=== PATIENT | male | born 1940 | race Caucasian/White ===

== ENCOUNTER 2016-11-18 21:42 | Inpatient (IN) ==
[2016-11-18] MEDS ORDERED: 0.9 % Sodium Chloride 1,000 ML IVC ONE (22:11)
[2016-11-18 22:43] LABS: Eosinophils % 4.5 %; Hematocrit 19.9 % (37.5-50.1); Immature Granulocytes % 1.1 % (0-4); Lymphocytes # 0.4 K/mcL (0.6-4.6); Lymphocytes % 39.8 %; Mean Corpuscular HGB Conc 32.7 g/dL (31.6-35.5); Mean Corpuscular Hemoglobin 31.7 pg (28.0-33.3); Mean Corpuscular Volume 97.1 fL (83.0-100.0); Mean Platelet Volume 11.4 fL (9.4-12.4); Monocytes # 0.2 K/mcL (0.0-1.3); Monocytes % 18.2 %; Neutrophils # 0.3 K/mcL (1.6-8.9); Nucleated Red Blood Cells 4.5 /100 WBC (0); Red Blood Count 2.05 M/mcL (4.19-5.50); Red Cell Distribution Width 20.7 % (11.5-14.5); Segmented Neutrophils % 36.4 %
[2016-11-18 22:55] LABS: INR 1.3; Prothrombin Time 14.4 Seconds (9.4-12.1)
[2016-11-18 22:56] LABS: Calcium 7.8 mg/dL (8.6-10.8)
[2016-11-18 22:57] LABS: Activated Partial Thrombo Time 25.4 Seconds (26.0-36.0)
[2016-11-18 22:59] LABS: Hemoglobin 6.5 g/dL (12.9-16.9); Platelet Count 43 K/mcL (140-400)
[2016-11-18 23:04] LABS: Hypochromasia Present (Not Present)
[2016-11-18 23:05] LABS: Anisocytosis 3+ (Not Present)
[2016-11-18 23:06] LABS: Platelet Estimate Marked Decrease (Normal); Rouleaux Present (Not Present)
[2016-11-18 23:19] LABS: Thyroid Stimulating Hormone 2.312 mcIU/mL (0.350-4.840)
--- NOTE | 2016-11-18 23:47 | Emergency Department Note ---
Disposition Clinical Impression: Anemia, Neutropenia, Leukocytopenia, Elevated troponin, Chronic atrial fibrillation, Pneumonia, Anxiety Disposition: Admitted As Inpatient Condition: Critical Time of Disposition: 02:05 General Adult HPI - General Chief complaint: ED Arrhythmia/Palpitations Stated complaint: anxiety/tachy Time Seen by Provider: 11/18/16 21:47 Source: patient, family, EMS Limitations: no limitations Nursing Notes Reviewed: Yes Vital Signs Reviewed: Yes - History of Present Illness HPI Narrative: Mr. Craig, a 76yo male, presents from home via EMS with concerns of anxiety and tachycardia. Per EMS, patient's heart rate was slightly above 200 at their arrival. Now in the low 100s. Patient states he has been anxious and is slept 2 hours in the past 48. He was seen at this department last Wednesday prescribed a short course of Xanax which did help. He did follow up appropriately with his oncologist who also continue his prescription Xanax however pharmacy would not fill it until as leaving him a short gap of coverage as such, his symptoms were uncontrolled for a day or so he presents for evaluation. He has a history of multiple myeloma diagnosed 5.5 years ago. He is currently undergoing second round of chemotherapy. ROS: Positive: Anxiety, dyspnea Negative: fever, chills, nausea, vomiting, chest pains or palpitations, diaphoresis. Pain Scale: 0 - Related Data Home Medications Medication Instructions Recorded Confirmed Multivit-Min/FA/Lycopen/Lutein 1 each PO DAILY 01/04/15 11/19/16 [Centrum Silver Tablet] Phytosterol Combination No.1 1,000 mg PO BID 02/01/15 11/03/16 [Cholest Care] amLODIPine [Norvasc] 5 mg PO DAILY 07/16/16 11/19/16 Aloe Vera 1 cap PO DAILY 09/11/16 11/19/16 Lactobacillus Combination No.8 1 cap PO DAILY 09/11/16 11/03/16 [Adult Probiotic] Saw [place] Xtr/Zinc Picolin [Saw 1 each PO DAILY 09/11/16 11/03/16 [place] Capsule] Previous Rx's Medication Instructions Recorded Aspirin [Adult Low Dose Aspirin EC] 81 mg PO DAILY #30 tablet. 02/01/15 Acyclovir [Zovirax] 1 tab PO BID #180 tablet 03/28/17 Omeprazole [PriLOSEC] 20 mg PO DAILY #90 cap 08/18/16 Lactulose 10 ml PO BID PRN #300 mls 09/03/16 Prochlorperazine Maleate 10 mg PO Q6HR PRN #30 tablet 10/21/16 [Compazine] Pomalidomide [Pomalyst] 2 mg PO DAILY #21 capsule 10/27/16 ALPRAZolam [Xanax 0.5 MG Tablet] 0.5 mg PO BID PRN #40 tablet 11/17/16 FentaNYL PATCH [Duragesic] 25 mcg TD Q72H #10 patch.td72 11/17/16 Furosemide [Lasix] 20 mg PO DAILY PRN #30 tablet 11/17/16 levoFLOXacin [Levaquin] 500 mg PO DAILY #5 tablet 11/17/16 Allergies Allergy/AdvReac Type Severity Reaction Status Date / Time clarithromycin [From Biaxin] AdvReac Nausea Verified 09/28/16 15:36 Penicillins [PCN] AdvReac Fainting Verified 09/28/16 15:36 Sulfa (Sulfonamide AdvReac Hives Verified 09/28/16 15:36 Antibiotics) All systems ED: reviewed and negative except as stated. Past Medical History - Past Medical History Medical history: Reports: cancer, GERD, other Surgical history: Reports: appendectomy, other Psychiatric history: Reports: no psych history - Social History Smoking Status: Unknown if ever smoked Smokeless Tobacco Status: No Alcohol use: Reports: none Drug use: Reports: none Physical Exam Vital Signs Reviewed General: Patient is alert, oriented, and in no acute distress. Somewhat cachectic in appearance. HEENT: No facial asymmetry. Head is normocephalic and atraumatic. PERRLA. Trachea midline. Cardiovascular: Heart tachycardic rate rate and regular rhythm without clicks, rubs, gallops, or murmurs. No JVD. PMI nondisplaced. Trace pedal edema bilaterally. Bilateral radial pulses equal and 2/4. Respiratory: Symmetric chest rise with good respiratory effort. Bilateral breath sounds are clear without wheezing, crackles, or rhonchi. Abdomen: Bowel sounds present normoactive -4 quadrants. Abdomen is soft, nondistended, and nontender. No organomegaly noted. Musculoskeletal: Spontaneously moving all extremity. Psych: Patient's affect is appropriate for situation. - General Limitations: no limitations General appearance: alert, in no apparent distress Course Course Narrative: Initial concerns or cardiac given his tachycardia to rule out arrhythmia or other cause of tachycardia. We will also attempt to control his anxiety while in the department. Workup shows neutropenic leukopenia. Patient is afebrile. Each precautions placed in ER; masks given to family members at bedside. EKG shows A. fib with RVR; rate of 108. Patient has elevated troponin of 0.04. He denies chest pain. Provided aspirin. He does have elevated creatinine of 1.88 which is his baseline. I believe his elevated troponin is secondary to demand ischemia given his previously reported heart rate greater than 200. He is in the 70s heart rate at this time. He is now chest pain throughout his stay. His x-ray concerning for possible early pneumonia. Given patient's neutropenic opinion, will begin empiric treatment for hospital-acquired pneumonia. Does have an allergy to penicillin. He nor his are in sure if he has an allergic reaction to cephalosporin. Sure if he is ever taken cephalosporins previously. Patient is anemic with Hemoccult 6.5. He is scheduled for blood transfusion tomorrow. We will go and type and cross, consent for transfusion, and begin tonight. Discussed the above findings with the patient and multiple family members bedside. They agree for admission. Discussed the patient with the admitting hospitalist who agrees to accept the patient.who Vital Signs Temperature 98.2 F 11/18/16 21:46 Pulse Rate 107 11/18/16 21:46 Respiratory Rate 18 11/18/16 21:46 Blood Pressure 140/106 11/18/16 21:46 O2 Sat by Pulse Oximetry 97 11/18/16 21:46 Temperature 98.2 F 11/18/16 21:46 Pulse Rate 107 11/18/16 21:46 Respiratory Rate 18 11/19/16 01:18 Blood Pressure 135/96 11/19/16 01:18 O2 Sat by Pulse Oximetry 97 11/18/16 21:46 Oxygen Delivery Oxygen Delivery Nasal Cannula Medical Decision Making - Medical Records Medical records reviewed: Yes I reviewed the patient's medical records. - Lab Data Lab results reviewed: Yes I reviewed the patient's lab results. Result diagrams: 11/18/16 22:35 11/18/16 22:35 Lab Results 11/18/16 11/18/1617 Range/Units 22:35 22:35 22:35 WBC 0.9 L* (4.3-11.1) K/mcL RBC 2.05 L (4.19-5.50) M/mcL Hgb 6.5 L (12.9-16.9) g/dL Hct 19.9 L (37.5-50.1) % MCV 97.1 (83.0-100.0) fL MCH 31.7 (28.0-33.3) pg MCHC 32.7 (31.6-35.5) g/dL RDW 20.7 H (11.5-14.5) % Plt Count 43 L (140-400) K/mcL MPV 11.4 (9.4-12.4) fL Immature Gran % 1.1 (0-4) % Seg Neutrophils % 36.4 % Lymphocytes % 39.8 % Monocytes % 18.2 % Eosinophils % 4.5 % Basophils % 0.0 % Neutrophils # 0.3 L (1.6-8.9) K/mcL Lymphocytes # 0.4 L (0.6-4.6) K/mcL Monocytes # 0.2 (0.0-1.3) K/mcL Eosinophils # 0.0 (0.0-0.6) K/mcL Basophils # 0.0 (0.0-0.2) K/mcL Nucleated RBCs/100 WBC 4.5 H (0) /100 WBC Platelet Estimate Marked Decrease L (Normal) Hypochromasia Present A (Not Present) Anisocytosis 3+ A (Not Present) Rouleaux Present A (Not Present) PT 14.4 H (9.4-12.1) Seconds INR 1.3 APTT 25.4 L (26.0-36.0) Seconds D-Dimer 1168 H (0-500) ng/mLFEU Sodium 137 (136-145) mEq/L Potassium 4.0 (3.5-4.5) mEq/L Chloride 109 (98-109) mEq/L Carbon Dioxide 23 (19-29) mEq/L BUN 26 (8-26) mg/dL Creatinine 1.88 H D (0.72-1.25) mg/dL Est GFR ( Amer) 43 L (> 60) Est GFR (Non-Af Amer) 35 L (> 60) BUN/Creatinine Ratio 14 (6-26) Glucose 106 H (70-99) mg/dL Calculated Osmolality 289 (280-300) Calcium 7.8 L (8.6-10.8) mg/dL Troponin I (0-0.03) ng/mL TSH 2.312 (0.350-4.840) mcIU/mL 11/18/16 Range/Units 22:35 WBC (4.3-11.1) K/mcL RBC (4.19-5.50) M/mcL Hgb (12.9-16.9) g/dL Hct (37.5-50.1) % MCV (83.0-100.0) fL MCH (28.0-33.3) pg MCHC (31.6-35.5) g/dL RDW (11.5-14.5) % Plt Count (140-400) K/mcL MPV (9.4-12.4) fL Immature Gran % (0-4) % Seg Neutrophils % % Lymphocytes % % Monocytes % % Eosinophils % % Basophils % % Neutrophils # (1.6-8.9) K/mcL Lymphocytes # (0.6-4.6) K/mcL Monocytes # (0.0-1.3) K/mcL Eosinophils # (0.0-0.6) K/mcL Basophils # (0.0-0.2) K/mcL Nucleated RBCs/100 WBC (0) /100 WBC Platelet Estimate (Normal) Hypochromasia (Not Present) Anisocytosis (Not Present) Rouleaux (Not Present) PT (9.4-12.1) Seconds INR APTT (26.0-36.0) Seconds D-Dimer (0-500) ng/mLFEU Sodium (136-145) mEq/L Potassium (3.5-4.5) mEq/L Chloride (98-109) mEq/L Carbon Dioxide (19-29) mEq/L BUN (8-26) mg/dL Creatinine (0.72-1.25) mg/dL Est GFR ( Amer) (> 60) Est GFR (Non-Af Amer) (> 60) BUN/Creatinine Ratio (6-26) Glucose (70-99) mg/dL Calculated Osmolality (280-300) Calcium (8.6-10.8) mg/dL Troponin I 0.04 H* (0-0.03) ng/mL TSH (0.350-4.840) mcIU/mL - Radiology Data Radiology results reviewed: Yes I reviewed the patient's radiology results. Chest X-Ray 11/18/16 22:11 IMPRESSION: Minimal right basilar atelectasis or, less likely, pneumonia. D/ / Fletcher Conn MD / Fletcher Conn MD Interpreting Provider: Fletcher Conn MD - EKG Data EKG #1 EKG attestation: Yes I reviewed and interpreted this EKG. EKG results narrative: EKG dated 18 November 2016 interpreted as A. Fib with RVR; rate of 108. Rare PVCs. QRS 93, QT/QTC 300/2. Normal axis. Nonspecific ST-T changes. No previous EKG for comparison. Attestation Statement - Attestation Attestation: I, Brody Owens, examined this patient and my medical decision-making was reviewed with the LYE PEEL OPERATOR/PA/Advanced Practice Nurse/Resident Physician. I agree with the documented findings, disposition and treatment plan as described except to the extent set forth below. 76-year-old male brought to the emergency department for concerns of anxiety and tachycardia. EMS reported patient's heart rate at 210 however after observation in the EMS struck his heart rate improved significantly and gradually down to 140. Upon initial evaluation emergency Department his heart rate is now 110 and he continues to improve as he is able to relax. Patient had a similar episode of anxiety within the past few weeks, he just had a CTA of his chest within the past 4 days for similar symptoms as negative for PE. Patient denies fever, chills, nausea, vomiting. He states he became very anxious when his family was present today with everybody trying to talk over each other. Laboratory evaluation the patient is neutropenic. Chest x-ray shows a possible pneumonia. He will be treated for this with broad-spectrum antibiotics. Initial troponin is mildly elevated. Patient is comfortable with the plan to admit to the hospital for further care and evaluation.
[2016-11-18] MEDS ORDERED: Aspirin 81 MG TAB.CHEW PO ONE (23:50)
[2016-11-18] MEDS ORDERED: ALPRAZolam 0.5 MG TABLET PO ONE (23:52)
[2016-11-19] MEDS ORDERED: Levofloxacin 750 MG/150 ML 750 MG/150 ML BAG IVPB ONE (00:24)
[2016-11-19] MEDS ORDERED: Vancomycin 1,000 MG in D5% in Water 250 ML IVPB ONE (00:24)
[2016-11-19] MEDS ORDERED: Cefepime HCl 2,000 MG in D5% in Water (Mini-Bag+) 100 ML IVPB SCH (01:00)
--- NOTE | 2016-11-19 02:46 | Internal Med History&Physical ---
Date of Encounter: 11/19/16 Time of Encounter: 02:46 Assessment and Plan (1) Tachycardia Current visit: Yes Status: Acute EKG showed sinus tachycardia. TSH is normal. Suspect is related to anxiety. However, in view of elevated d-dimer and troponin, will need to exclude Pulmonary embolism. Will request VQ scan (Creatinine is elevated). Pt is on IV fluids (2) Pancytopenia Current visit: Yes Status: Chronic Likely due to multiple myeloma / therapy. Will consult Oncologist for further advice. (3) Elevated troponin Current visit: Yes Status: Acute Likely due to tachycardia / demand ischemia. Will need to exclude ACS / Pulmonary embolism. Trend troponins. Will request echocardiogram. Consider cardiology consultation if troponin trends up (4) Elevated d-dimer Current visit: Yes Status: Acute will need to exclude Pulmonary embolism. Will request VQ scan (Creatinine is elevated). If negative, consider venous doppler (5) Neutropenia Current visit: Yes Status: Acute Neutropenic precautions. Oncology / Hematology consult Qualifiers: Neutropenia type: unspecified Qualified Code(s): D70.9 - Neutropenia, unspecified (6) Anxiety Current visit: Yes Status: Chronic continue with xanax (7) Acute kidney injury Current visit: Yes Status: Acute Suspect is related to multiple myeloma. Treat with IV fluids (8) Multiple myeloma Current visit: Yes Status: Chronic Oncology consult Qualifiers: Multiple myeloma remission status: not in remission Qualified Code(s): C90.00 - Multiple myeloma not having achieved remission (9) DVT prophylaxis Current visit: Yes Status: Acute SCDs Internal Medicine - H&P: HPI Chief complaint: fast heart rate Admitted From: Emergency Dept Plans for Post Hospital Care: Home History of present illness: Mr. Craig is a 76 year old male With h/o multiple myeloma and anxiety. His heart rate was apparently was high on his home monitor (about 150). ER note indicate that EMS reported patient's heart rate at 210 however after observation in the EMS struck his heart rate improved significantly and gradually down to 140. Upon initial evaluation emergency Department his heart rate is now 110 and he continues to improve as he is able to relax.. He reports that he is anxious and been using Xanax. He is worried to go sleep and concerned that he may not wake up in the morning. He denies chest pain, shortness of breath, palpitations. He reports cough with whitish and light brown sputum, for few weeks. No hemoptysis. He denies fever, chills, nausea, vomiting, abdominal pain, dysuria, hematuria, change in bowel habits. He was evaluated in the emergency department ER note reports A Fib, but on review of the EKG, it seems to be sinus tachycardia. He was noted to be neutropenic. CXR reported Minimal right basilar atelectasis or, less likely, pneumonia he was given triple antibiotics with suspicion for pneumonia. He is admitted to the hospitalist service for further management. Past Med Surg Social Fam HX - Past Medical History Medical history: cancer, GERD, other Psychiatric history: no psych history - Past Surgical History Surgical History: appendectomy, other - Social History Smoking Status: Unknown if ever smoked Smokeless Tobacco Status: No Alcohol use: none Drug use: none - Family History Grandfather Adopted: No Family Member Ethnicity: Non- Living Status: Hx Family Cancer: Yes Father Family Member Ethnicity: Non- Living Status: Age at : 88 Cause of : Natural Causes Hx Family Endocrine Disorder: Yes (diabetes) Mother Age at : 85 Cause of : Natural Causes Hx Family Endocrine Disorder: Yes (Diabetes) Internal Medicine - H&P: Meds Multivit-Min/FA/Lycopen/Lutein [Centrum Silver Tablet] 1 tab PO DAILY 01/04/15 [ History] Aspirin [Adult Low Dose Aspirin EC] 81 mg PO DAILY #30 tablet. 02/01/15 [Rx] amLODIPine [Norvasc] 5 mg PO DAILY 07/16/16 [History] Acyclovir [Zovirax] 1 tab PO BID #180 tablet 08/18/16 [Rx] Omeprazole [PriLOSEC] 20 mg PO DAILY #90 cap 08/18/16 [Rx] Lactulose 10 ml PO BID PRN #300 mls 09/03/16 [Rx] Aloe Vera 25 mg PO DAILY 09/11/16 [History] Saw [place] Xtr/Zinc Picolin [Saw [place] Capsule] 1 cap PO DAILY 09/11/16 [ History] Prochlorperazine Maleate [Compazine] 10 mg PO Q6HR PRN #30 tablet 10/21/16 [Rx] Pomalidomide [Pomalyst] 2 mg PO DAILY #21 capsule 10/27/16 [Rx] ALPRAZolam [Xanax 0.5 MG Tablet] 0.5 mg PO BID PRN #40 tablet 11/17/16 [Rx] FentaNYL PATCH [Duragesic] 25 mcg TD Q72H #10 patch.td72 11/17/16 [Rx] Furosemide [Lasix] 20 mg PO DAILY PRN #30 tablet 11/17/16 [Rx] levoFLOXacin [Levaquin] 500 mg PO DAILY #5 tablet 11/17/16 [Rx] Allergies clarithromycin [From Biaxin] Adverse Reaction (Verified 09/28/16 15:36) Nausea Penicillins [PCN] Adverse Reaction (Verified 09/28/16 15:36) Fainting Sulfa (Sulfonamide Antibiotics) Adverse Reaction (Verified 09/28/16 15:36) Hives All Systems PM: A 10-system review of systems was performed and is negative for pertinent findings except as documented above in the HPI. - Constitutional Vitals: Temp Pulse Resp BP Pulse Ox 98.2 F 107 18 135/96 97 11/18/16 21:46 11/18/16 21:46 11/19/16 01:18 11/19/16 01:18 11/18/16 21:46 Exam: General: Not in acute distress at the time of my evaluation. Anxious HEENT: Oral mucosa is moist. conjunctival palor present Neck: No obvious neck swellings Lungs: Clear to auscultation Cardiac: Regular rate and rhythm. No significant murmurs Abdomen: Soft, non tender. Bowel sounds present Genitourinary: No fontenot catheter Neurological: Alert and oriented. No gross localizing deficits Psych: Not aggressive or agitated Extremities: no significant leg edema Skin: No generalized rash Internal Med - H&P Results - Labs CBC & Chem 7: 11/19/16 03:27 11/19/16 03:27 - EKG Data -: EKG Interpreted by Myself EKG shows normal: sinus rhythm Rate: tachycardia - Impressions ITS Impressions Chest X-Ray 11/18/16 22:11 IMPRESSION: Minimal right basilar atelectasis or, less likely, pneumonia. D/ / Fletcher Conn MD / Fletcher Conn MD Interpreting Provider: Fletcher Conn MD
[2016-11-19] MEDS ORDERED: Naloxone 0.4 MG/ML INJ IVP PRN (03:03)
[2016-11-19] MEDS: 0.9 % Sodium Chloride 1,000 ML IVC SCH ×2 (03:18→20:01)
[2016-11-19 03:33] LABS: Hemoglobin 6.7 g/dL (12.9-16.9); Nucleated Red Blood Cells 5.7 /100 WBC (0); Red Cell Distribution Width 21.1 % (11.5-14.5)
[2016-11-19 03:35] LABS: Eosinophils % 4.5 %; Hematocrit 20.5 % (37.5-50.1); Immature Granulocytes % 3.4 % (0-4); Lymphocytes # 0.4 K/mcL (0.6-4.6); Lymphocytes % 39.8 %; Mean Corpuscular HGB Conc 32.7 g/dL (31.6-35.5); Mean Corpuscular Hemoglobin 32.4 pg (28.0-33.3); Mean Platelet Volume 10.8 fL (9.4-12.4); Monocytes # 0.1 K/mcL (0.0-1.3); Monocytes % 14.8 %; Neutrophils # 0.3 K/mcL (1.6-8.9); Red Blood Count 2.07 M/mcL (4.19-5.50); Segmented Neutrophils % 37.5 %
[2016-11-19 03:39] LABS: Platelet Count 37 K/mcL (140-400)
[2016-11-19 03:46] LABS: Albumin 2.3 g/dL (3.5-5.0); Albumin/Globulin Ratio 0.5 (1.1-2.2); Bilirubin,Total 0.5 mg/dL (0.2-1.2); Calcium 7.5 mg/dL (8.6-10.8); Globulin 4.2 g/dL (2.4-3.5); Magnesium 1.1 mg/dL (1.6-2.6); Potassium 3.7 mEq/L (3.5-4.5); Total Protein 6.5 g/dL (6.0-8.3)
[2016-11-19 03:48] LABS: Chol/HDL Ratio 3.6 (0-4.9)
[2016-11-19 04:01] LABS: Platelet Estimate Decreased (Normal)
[2016-11-19 04:52] LABS: Bilirubin,Urine Negative (Negative); Blood,Urine Small (Negative); Clarity,Urine Cloudy (Clear); Color,Urine Yellow (Yellow); Glucose,Urine (UA) Normal (Normal); Ketones,Urine Negative (Negative); Leukocyte Esterase,Urine Small (Negative); Nitrite,Urine Negative (Negative); Protein,Urine 30 mg/dL (Neg-Trace); Specific Gravity,Urine 1.007 (1.010-1.025); Urobilinogen,Urine Normal (Normal)
[2016-11-19 04:55] LABS: Bacteria,Urine None Seen per hpf (None-Few); Hyaline Casts,Urine None Seen per lpf (None-Few); RBC,Urine 0-3 per hpf (0-3); Squamous Epithelial Cell,Urine Many per lpf (None-Few); WBC,Urine 30-50 per hpf (0-3)
[2016-11-19] MEDS ORDERED: Magnesium Sulfate 2 GM in D5% in Water 100 ML IVPB ONE (08:15)
[2016-11-19] MEDS ORDERED: 0.9 % Sodium Chloride 250 ML ONE ×2 (09:09→12:25)
--- NOTE | 2016-11-19 11:24 | Electrocardiograph Report ---
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
[2016-11-19] MEDS ORDERED: Furosemide 20 MG TABLET PO PRN (12:10)
[2016-11-19] MEDS ORDERED: (Pomalidomide [Pomalyst] 2 MG) PO SCH (12:15)
[2016-11-19] MEDS ORDERED: *HR* FentaNYL PATCH 25 MCG PATCH TD SCH (12:15)
[2016-11-19] MEDS ORDERED: ALOE VERA PO SCH (12:15)
[2016-11-19] MEDS: Aspirin Enteric Coated 81 MG Tablet PO SCH (13:04)
[2016-11-19] MEDS: amLODIPine 5 MG TABLET PO SCH (13:05)
[2016-11-19] MEDS: Multivit/Ca/Min/Fe/FA 1 TAB TABLET PO SCH (13:05)
--- NOTE | 2016-11-19 16:50 | Oncology Inp Consult Note ---
<Ben Go Jr - Last Filed: 11/19/16 19:13> Date of Encounter: 11/19/16 Time of Encounter: 17:15 Assessment and Plan (1) Multiple myeloma Status: Chronic Assessment and plan: This is a 76 year old male with multiple myeloma. He has progressed through multiple lines of treatment as mentioned. Free kappa LC on 09/03/16 was 83.10 compared to 39.00 on 08/13/16. Most recent on 10/20/2016, 36.3 Bone marrow biopsy on 09/11/16 at least 80% of the cells appear positive for CD138 Dr. Delvalle at [facility] has recommended the following regimen: Cycle every 28 days Carfilzomib 36 mg/m day 1, 2, 8, 9, 15, 16 Dexamethasone will give 10 mg IV on the same day since above Pomalidomide 2 mg is one through 21 started 1-2 days after cycle 1 started. May add Daratumumab standard dosing to the combination in the future if possible Cycle 1 10/05/16 Last seen at [facility] on 11/17/16 for Cycle 2, Day 16 of chemotherapy. This completed cycle 2. At that time: We planned 2 more cycles to begin at end of November 2016. He started treatment for UTI on levaquin ( E. Faecalis culture returned today). He was symptomatic with burning on urination. He had new increasing leg edema as well. He was started on lasix 20mg daily PRN , #30, NR, advised to take when significantly over baseline. Prescribed DI wraps and education for gentle compression of the lower legs, on during the day , off at night. Keep legs elevated while at rest. He was advised that day to call communications billing analyst about restarting amlodipine. He has A Fib with heart rate 100-105. He had been off of medication for 3 weeks. We were concerned his chronic heart issues were causing leg edema. Patient now admitted 11/18/16 for tachycardia and elevated troponin, most likely demand ischemia. Echo shows EF at 30%. CTA chest negative for pulmonary embolism. I had a long discussion with patient and family about cardiac issues and echo result. Unfortunately, the Carfilzomib 36 mg/m day 1, 2, 8, 9, 15, 16 every 28 days can contribute to CHF. This is the drug that has kept his disease under control , where others have failed. We will discuss with patient. Drug on hold on his treatment plan as outpatient. Spoke to Dr. Powell, she will order cardiac consult for tomorrow Dr Quach will assess patient as well. Qualifiers: Multiple myeloma remission status: not in remission Qualified Code(s): C90.00 - Multiple myeloma not having achieved remission - Data of Consult Patient: known to practice within the last 3 years Consult date: 11/19/16 Requesting Physician: Robert Powell DO Primary Care Provider: Sal Tomlin MD - Consult Narrative Reason for consult: multiple myeloma History of present illness: Mr. Criag is a 76 year old male with diagnosis of multiple myeloma under the care of Dr Chapincito Quach at [facility] History of present illness: 1. IgG kappa multiple myeloma. Elevated kappa light chains to 78 with M spike 3 gms. 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 International staging, stage IIIB. Beta-2 microglobulin 6.1, albumin 8, few lytic lesions. 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 3. High-risk features on presentation. Calcium 16, acute renal failure. Creatinine 4.8, and anemia and they all resolved. TREATMENT: Four cycles of Velcade subcutaneous 1.3 mg/m square with Decadron 20 mg p.o. followed by autologous stem cell transplant on 03/27/2012 with melphalan 200 mg/m2 conditioning. June 2011 M-spike came down to 1.1 grams. Revlimid maintenance from June 2011 to July 2014. Initially 15 mg 3 weeks on one week off than 10 mg a day later on Revlimid duration changed to 2 weeks on and 2-week off kappa light chain down to 2.28 July 2013. He had slow progression with increase in monoclonal protein to 1 g. Started Revlimid back to 15 mg by mouth day one through 21 of 28 day cycle. Cycle one on January 2015. He has profound asthenia even with dose reductions Pomalidomide 2 mg by mouth daily day one through 21 of 28 day cycle. Cycle one started around 05/24/2015. Has some muscle pain especially in the back intrascapular area and back of the shoulders and it is not improving. For this treatment stopped because of that and also he had progression CyBor D weekly treatment starting 07/22/2015 day 1, 8, 15, 22 of every 4 weeks. He completed 2 cycles on 08/26/2015 except day 22. Monoclonal protein increased to 2.5 g on 08/23/2015 from 2.2 g on June 2015. The same time. Light chain has increased to 18 from 13. Carfilzomib initially 20 mg/m increasing to 27 mg/m on day 1, 2, 8, 9, 15, 16 with cyclophosphamide 300 mg/m day 1, 8, 15 every 4 weeks cycle. From 2015 to 01/01/2016 He developed some tremors and blurred vision after treatment. Dose reduced Decadron to [address] chest with contrast on 08/16/15 shows redemonstration of multiple lytic foci throughout the bony structures consistent with the histy of multiple myeloma. His pain in the scapular area got better He had a decent response Carfilzomib initially but then progressed. Monoclonal protein was down to 1.9 g on November 2015 and increased to 2.7 g by end of December 2015 Daratumumab single agent 16 mg per KG weekly 8 doses. From 01/24/2016 to 03/13. After that every 2 weeks starting cycle 9 on 03/20/2016 and finished cycle 11 on 04/20/2016 His monoclonal protein continued to increase light chain up to 34 on 03/20/2016 and monoclonal protein 3.6 g on 04/20/2016 Elotuzumab at 10 mg per KG day 1, 8, 15 and 22 of 28 day cycle with Revlimid 10 mg by mouth day one through 21 of 28 day cycle. He cannot tolerate 15 mg Revlimid and does not want to try that Also Decadron 12 mg PO weekly. Cycle 1 on 05/14/2016 From Cycle 3 on 07/16/2016 every 2 weeks on the Elotuzumab His monoclonal protein is decreased to 3.6 g on 07/14/2016 than when up to up to 4.1 on 08/13/2016. Currently 3.75 g But during the same time kappa light chain went down from 66 to 39 and back up to 83 On 06/19/2016 is calcium and up to 13. He received Zometa 3 mg IV got symptomatically better We will continue low-dose Xeloda monthly for now Last given 09/14/16. Bone marrow biopsy through radiology 09/07/2016 showed replacement with my myeloma more than 80%. 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 Print is not legible Patient finishing last 2 days of revlimid 09/28-09/30/16. Dr. Delvalle has recommended the following regimen in the past Cycle every 28 days--Cycle 1 scheduled to start on 10/05/16/ Carfilzomib 36 mg/m day 1, 2, 8, 9, 15, 16 Dexamethasone will give 10 mg IV on the same day since above Pomalidomide 2 mg is one through 21. Rx was faxed to pharmacy by Julio Ritter, Pharmacist on September 17. Patient has not received medication to date. Mr. Ritter is contacting pharmacy. Patient will start taking this medication as soon as it arrives. was instructed to keep calendar of dates taken and bring it at time of next visit. Started 2 days after this cycles started. May add Daratumumab standard dosing to the combination in the future if possible Today he is receiving cycle 1 day 15. Tolerating treatment well does have intermittent nausea controlled with anti nausea medication. Cycle 2 started 11/02/16. Cycles are given every 28 days. 10/20/16 Free [place] Light Chains, 36.3 compared to 70.0 on 09/21/2016. Free [place]/ Lamda Ligfht chain ration 51.8 compared to 333.3. M spike 2.89 compared to 3.6 in June of 2016. Continues to have pancytopenia. 11/02/16- WBC 1.5, HGB 6.5, 36,000. Last transfusion of packed cells 10/21/2016 -1unit. 11/17/16: Cycle 2, day 16 completed . Recheck light chains and SPEP. Scheduled two more cycles of chemo treatment. Treated for leg edema and UTI Past Med Surg Social Fam HX - Past Medical History Medical history: cancer, GERD, other Psychiatric history: no psych history - Past Surgical History Surgical History: appendectomy, other - Social History Smoking Status: Unknown if ever smoked Smokeless Tobacco Status: No Alcohol use: none Drug use: none - Family History Grandfather Adopted: No Family Member Ethnicity: Non- Living Status: Age at : 70 Hx Family Cancer: Yes Father Family Member Ethnicity: Non- Living Status: Age at : 88 Cause of : Natural Causes Hx Family Endocrine Disorder: Yes (diabetes) Mother Age at : 85 Cause of : Natural Causes Hx Family Endocrine Disorder: Yes (Diabetes) Medications and Allergies Multivit-Min/FA/Lycopen/Lutein [Centrum Silver Tablet] 1 tab PO DAILY 01/04/15 [ History] Aspirin [Adult Low Dose Aspirin EC] 81 mg PO DAILY #30 tablet. 02/01/15 [Rx] amLODIPine [Norvasc] 5 mg PO DAILY 07/16/16 [History] Acyclovir [Zovirax] 1 tab PO BID #180 tablet 08/18/16 [Rx] Omeprazole [PriLOSEC] 20 mg PO DAILY #90 cap 08/18/16 [Rx] Lactulose 10 ml PO BID PRN #300 mls 09/03/16 [Rx] Aloe Vera 25 mg PO DAILY 09/11/16 [History] Saw Foster Xtr/Zinc Picolin [Saw Foster Capsule] 1 cap PO DAILY 09/11/16 [ History] Prochlorperazine Maleate [Compazine] 10 mg PO Q6HR PRN #30 tablet 10/21/16 [Rx] Pomalidomide [Pomalyst] 2 mg PO DAILY #21 capsule 10/27/16 [Rx] ALPRAZolam [Xanax 0.5 MG Tablet] 0.5 mg PO BID PRN #40 tablet 11/17/16 [Rx] FentaNYL PATCH [Duragesic] 25 mcg TD Q72H #10 patch.td72 11/17/16 [Rx] Furosemide [Lasix] 20 mg PO DAILY PRN #30 tablet 11/17/16 [Rx] levoFLOXacin [Levaquin] 500 mg PO DAILY #5 tablet 11/17/16 [Rx] Allergies clarithromycin [From Biaxin] Adverse Reaction (Verified 09/28/16 15:36) Nausea Penicillins [PCN] Adverse Reaction (Verified 09/28/16 15:36) Fainting Sulfa (Sulfonamide Antibiotics) Adverse Reaction (Verified 09/28/16 15:36) Hives Respiratory: Present: dyspnea Oncology - Exam - Constitutional Vitals: Temp Pulse Resp BP Pulse Ox 97.6 F 104 18 159/90 97 11/19/16 12:59 11/19/16 12:59 11/19/16 12:59 11/19/16 12:59 11/19/16 12:59 General appearance: average body habitus, cooperative, mild distress (dyspnea) - Head Head exam: Present: atraumatic, normal inspection - Eye Eye exam: Present: normal appearance, PERRL - ENT ENT exam: Present: mucous membranes moist - Neck Neck exam: Present: full ROM, normal inspection - Respiratory Respiratory exam: Present: decreased breath sounds, rhonchi - Cardiovascular Cardiovascular exam: Present: irregular rhythm - GI/Abdominal GI/Abdominal exam: Present: normal bowel sounds, soft - Extremities Exam Extremities exam: Present: joint swelling, normal inspection, pedal edema - Neurological Exam Neurological exam: Present: alert, oriented X3, no focal deficits - Psychiatric Psychiatric exam: Present: anxious - Skin Skin exam: Present: dry, intact, warm Oncology - Results - Labs Labs: Short CBC 11/19/16 Range/Units 03:27 WBC 0.9 L* (4.3-11.1) K/mcL Hgb 6.7 L (12.9-16.9) g/dL Hct 20.5 L (37.5-50.1) % Plt Count 37 L (140-400) K/mcL Neutrophils # 0.3 L (1.6-8.9) K/mcL BMP 11/19/16 03:27 Sodium 136 Potassium 3.7 Chloride 110 H Carbon Dioxide 23 BUN 26 Creatinine 1.77 H Glucose 85 Calcium 7.5 L Cardiac Enzymes 11/19/16 Range/Units 03:27 Troponin I 0.05 H* (0-0.03) ng/mL Liver Function 11/19/16 Range/Units 03:27 Total Bilirubin 0.5 (0.2-1.2) mg/dL AST 21 (5-34) Units/L ALT 26 (0-55) Units/L Alkaline Phosphatase 55 (38-126) Units/L Albumin 2.3 L (3.5-5.0) g/dL Urine 11/19/16 Range/Units 04:45 Urine Color Yellow (Yellow) Urine Clarity Cloudy A (Clear) Urine pH 6.0 (5.0-8.0) pH Units Ur Specific [place] 1.007 L (1.010-1.025) Urine Protein 30 H (Neg-Trace) mg/dL Urine Glucose (UA) Normal (Normal) mg/dL Consult Discharge Plan - Plan Referrals: Sal Tomlin MD [Primary Care Provider] - 11/30/16 9:45 am <Chapincito Quach S - Last Filed: 11/20/16 09:32> Date of Encounter: 11/20/16 - Data of Consult Requesting Physician: Robert Powell DO Primary Care Provider: Sal Tomlin MD - Consult Narrative History of present illness: Mr. Craig is a 76 year old male Oncology - Exam - Constitutional Vitals: Temp Pulse Resp BP Pulse Ox 97.6 F 115 18 154/86 91 11/20/16 07:30 11/20/16 07:30 11/20/16 07:30 11/20/16 07:45 11/20/16 07:30 Oncology - Results - Labs Labs: Short CBC 11/20/16 Range/Units 00:40 WBC 1.5 L D (4.3-11.1) K/mcL Hgb 10.1 L D (12.9-16.9) g/dL Hct 30.6 L (37.5-50.1) % Plt Count 48 L (140-400) K/mcL BMP 11/20/16 00:40 Sodium 136 Potassium 4.3 Chloride 112 H Carbon Dioxide 19 BUN 23 Creatinine 1.30 H Glucose 121 H Calcium 7.7 L Cardiac Enzymes 11/19/16 11/20/16 Range/Units 18:11 00:40 Troponin I 0.12 H* 0.12 H* (0-0.03) ng/mL Liver Function 11/20/16 Range/Units 00:40 Total Bilirubin 0.9 D (0.2-1.2) mg/dL AST 16 (5-34) Units/L ALT 25 (0-55) Units/L Alkaline Phosphatase 63 (38-126) Units/L Albumin 2.4 L (3.5-5.0) g/dL - Attending Attestation 1. Multiple myeloma He failed multiple lines of treatment Currently he is on Carfilzomib and Decadron and Pomalidomide. Completed 2 cycles. He is responding and kappa light chains have been decreasing currently 35 on 11/17/2016. Serum protein electrophoresis from that day pending but monoclonal protein decreasing as well 2. CHF. Admitted with tachycardia heart rate 150-200. Sinus tachycardia versus A. fib. Echocardiogram showed ejection fraction 30% on 11/19/2016 which is decreased from 57% on June 2016. He also has lower extremity edema. Part of these could be secondary to anemia and he received 2 units of packed RBC Mild elevation in troponin. Heart etiology consult pending 3. Carfilzomib can be contributing to some of the congestive heart failure. Given that his myeloma is aggressive may have to continue that once he is better. His treatment options are very limited 4. Anxiety and shortness of breath. Currently on oxygen 3 L per nasal cannula. Still tachycardic heart rate around 100. He has tough time going to sleep
[2016-11-19] MEDS ORDERED: *HR* Metoprolol 5 MG/5 ML VIAL IVP PRN (17:02)
[2016-11-19] MEDS: ALPRAZolam 0.5 MG TABLET PO PRN (17:12)
--- NOTE | 2016-11-19 18:30 | Event Note ---
Date of Encounter: 11/19/16 Time of Encounter: 18:29 Pt admitted during the night with tachycardia and pancytopenia. Seen by oncology service. ? worsening cardiac status. Will ask card to see tomorrow.
[2016-11-19] MEDS ORDERED: Vancomycin 1,000 MG in D5% in Water 250 ML IVPB SCH (20:28)
[2016-11-20 00:53] LABS: Hematocrit 30.6 % (37.5-50.1); Hemoglobin 10.1 g/dL (12.9-16.9); Mean Corpuscular Hemoglobin 30.2 pg (28.0-33.3); Mean Corpuscular Volume 91.6 fL (83.0-100.0); Red Blood Count 3.34 M/mcL (4.19-5.50); Red Cell Distribution Width 20.6 % (11.5-14.5)
[2016-11-20 00:55] LABS: Platelet Count 48 K/mcL (140-400)
[2016-11-20 01:07] LABS: Alanine Aminotransferase 25 Units/L (0-55); Albumin 2.4 g/dL (3.5-5.0); Albumin/Globulin Ratio 0.5 (1.1-2.2); Alkaline Phosphatase 63 Units/L (38-126); Aspartate Amino Transferase 16 Units/L (5-34); BUN/Creatinine Ratio 18 (6-26); Bilirubin,Total 0.9 mg/dL (0.2-1.2); Blood Urea Nitrogen 23 mg/dL (8-26); Calcium 7.7 mg/dL (8.6-10.8); Carbon Dioxide 19 mEq/L (19-29); Chloride 112 mEq/L (98-109); Globulin 4.4 g/dL (2.4-3.5); Glucose 121 mg/dL (70-99); Magnesium 1.4 mg/dL (1.6-2.6); Osmolality,Calculated 287 (280-300); Potassium 4.3 mEq/L (3.5-4.5); Sodium 136 mEq/L (136-145); Total Protein 6.8 g/dL (6.0-8.3); eGFR For African Americans > 60 (> 60); eGFR For Non-African Americans 54 (> 60)
[2016-11-20] MEDS: ALPRAZolam 0.5 MG TABLET PO PRN ×2 (01:20→07:44)
[2016-11-20] MEDS: Vancomycin 1,000 MG in D5% in Water 250 ML IVPB SCH (01:28)
[2016-11-20] MEDS ORDERED: Magnesium Sulfate 2 GM in D5% in Water 100 ML IVPB ONE (08:22)
[2016-11-20] MEDS ORDERED: (Pomalidomide [Pomalyst] 2 MG) PO SCH (09:00)
[2016-11-20] MEDS: amLODIPine 5 MG TABLET PO SCH (09:29)
[2016-11-20] MEDS: Aspirin Enteric Coated 81 MG Tablet PO SCH (09:30)
[2016-11-20] MEDS: ALPRAZolam 0.5 MG TABLET PO SCH ×3 (09:30→22:12)
[2016-11-20] MEDS: Multivit/Ca/Min/Fe/FA 1 TAB TABLET PO SCH (09:30)
[2016-11-20] MEDS: 0.9 % Sodium Chloride 1,000 ML IVC SCH ×2 (09:33→22:13)
--- NOTE | 2016-11-20 10:47 | Cardiology Consult Note ---
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 Suspect nonischemic secondary to Carfilzomib, as EF was previously 55% 06/2016 prior to starting the medication. Recommend holding Carfilzomib. However, ischemic origin cannot be ruled out. No hx of CAD and no prior ischemic work-up. Complicated by his multiple myeloma and pancytopenia with HGB 6.7 yesterday, 10.1 today s/p 2 units PRBCs. Platelet count 48. To obtain further information on whether or not this is ischemic in nature, recommend stress test tomorrow. If stress is negative, recommend holding medication for 1 week and repeating echo. If EF returns to normal, would recommend oncology consider restarting Carfilzomib at a lower dose. However, if stress test is positive, will recommend holding medication to allow his pancytopenia to improve and plan for LHC. Further recommendations to follow stress results tomorrow. In the meantime, start BB and DI-I for CMP. Qualifiers: Cardiomyopathy type: unspecified Qualified Code(s): I42.9 - Cardiomyopathy , unspecified (2) Acute systolic CHF (congestive heart failure), NYHA class 2 Current Visit: Yes Status: Acute Reports of worsening dyspnea and lower extremity edema over the past 2 weeks. EF found to be 30%, previously 55% as above. On PRN Lasix currently. Recommend strict I/Os, daily weights, Na and fluid restriction. (3) Elevated troponin Current Visit: Yes Status: Acute 0.04, 0.05, 0.12, 0.12 in setting of acute CHF, UTI and tachycardia. Suspect demand ischemia, nondiagnostic for ACS. Pt denies chest pain. Plan for stress test as above. (4) Tachycardia Current Visit: Yes Status: Acute Sinus tachycardia with ectopy. No evidence of significant arrhythmias. Will start BB. (5) Multiple myeloma Current Visit: Yes Status: Chronic Management per oncology. Multiple failed agents in the past. Carfilzomib has been the only medication to slow progression, but now with CMP EF 30% possibly from the medication. Recommend holding Carfilzomib until/if EF recovers. If EF recovers, recommend restarting at a lower dose. Qualifiers: Multiple myeloma remission status: not in remission Qualified Code(s): C90.00 - Multiple myeloma not having achieved remission Discussion w patient/family: The assessment and plan as outlined above was discussed with the patient and/or family members who expressed understanding and agreement. All questions were answered. Thank you for involving us in the care of your patient. Please call with any questions. I will discuss all the above with Dr. Pryor and make changes as necessary. History of Present Illness Consult date: 11/20/16 Requesting physician: Robert Powell Consult reason: CMP, CHF Chief complaint: anxiety, lower extremity edema, dyspnea History of present illness: Mr. Craig is a 76 year old male with PMH of current multiple myeloma, pancytopenia, CKD stage 3, and anxiety. His heart rate was apparently was high on his home monitor (about 150). He reports that he is anxious and been using Xanax. He is worried to go sleep and concerned that he may not wake up in the morning. He denies chest pain. He does report worsening dyspnea and lower extremity edema over the past couple weeks. CXR reported minimal right basilar atelectasis or, less likely, pneumonia he was given triple antibiotics with suspicion for pneumonia. Echo was obtained--EF newly reduced to 30%, severe global dysfunction with regional variations, mild AR, moderate MR and TR, severe phtn. Troponins 0.04, 0.05, 0.12, 0.12. EF was previously 55% in 06/2016, prior to starting a new chemotherapy agent, Carfilzomib, which can unfortunately cause cardiomyopathy. He has failed multiple other agents previously. Cardiology consulted for newly reduced EF. Past Med Surg Social Fam HX - Past Medical History Medical history: cancer, GERD, other Psychiatric history: no psych history - Past Surgical History Surgical History: appendectomy, other - Social History Smoking Status: Unknown if ever smoked Smokeless Tobacco Status: No Alcohol use: none Drug use: none - Family History Grandfather Adopted: No Family Member Ethnicity: Non- Living Status: Age at : 70 Hx Family Cancer: Yes Father Family Member Ethnicity: Non- Living Status: Age at : 88 Cause of : Natural Causes Hx Family Endocrine Disorder: Yes (diabetes) Mother Age at : 85 Cause of : Natural Causes Hx Family Endocrine Disorder: Yes (Diabetes) Medications and Allergies Multivit-Min/FA/Lycopen/Lutein [Centrum Silver Tablet] 1 tab PO DAILY 01/04/15 [ History] Aspirin [Adult Low Dose Aspirin EC] 81 mg PO DAILY #30 tablet. 02/01/15 [Rx] amLODIPine [Norvasc] 5 mg PO DAILY 07/16/16 [History] Acyclovir [Zovirax] 1 tab PO BID #180 tablet 08/18/16 [Rx] Omeprazole [PriLOSEC] 20 mg PO DAILY #90 cap 08/18/16 [Rx] Lactulose 10 ml PO BID PRN #300 mls 09/03/16 [Rx] Aloe Vera 25 mg PO DAILY 09/11/16 [History] [place] Xtr/Zinc Picolin [Saw [place] Capsule] 1 cap PO DAILY 09/11/16 [ History] Prochlorperazine Maleate [Compazine] 10 mg PO Q6HR PRN #30 tablet 10/21/16 [Rx] Pomalidomide [Pomalyst] 2 mg PO DAILY #21 capsule 10/27/16 [Rx] ALPRAZolam [Xanax 0.5 MG Tablet] 0.5 mg PO BID PRN #40 tablet 11/17/16 [Rx] FentaNYL PATCH [Duragesic] 25 mcg TD Q72H #10 patch.td72 11/17/16 [Rx] Furosemide [Lasix] 20 mg PO DAILY PRN #30 tablet 11/17/16 [Rx] levoFLOXacin [Levaquin] 500 mg PO DAILY #5 tablet 11/17/16 [Rx] Allergies clarithromycin [From Biaxin] Adverse Reaction (Verified 09/28/16 15:36) Nausea Penicillins [PCN] Adverse Reaction (Verified 09/28/16 15:36) Fainting Sulfa (Sulfonamide Antibiotics) Adverse Reaction (Verified 09/28/16 15:36) Hives All Systems Review: A 10-system review of systems was performed and is negative for pertinent findings except as documented above in the HPI. - Constitutional Constitutional: fatigue - Cardiovascular Cardiovascular: as per HPI, dyspnea at rest, dyspnea on exertion, leg edema - Respiratory Respiratory: cough Physical Examination Vital Signs, Last 4 Hours Temp Pulse Resp BP Pulse Ox 11/20/16 07:45 154/86 11/20/16 07:30 97.6 F 115 18 91 Vital Signs Temp Pulse Resp BP Pulse Ox 11/20/16 07:45 154/86 11/20/16 07:30 97.6 F 115 18 91 11/19/16 19:58 97.6 F 108 17 147/80 95 11/19/16 16:48 98.0 F 116 17 169/101 95 11/19/16 12:59 97.6 F 104 18 159/90 97 11/19/16 12:58 98.0 F 108 18 160/90 11/19/16 12:38 97.9 F 108 18 155/90 95 11/19/16 11:44 97.9 F 105 15 151/92 97 Intake and Output 11/19/16 11/20/16 11/20/16 23:59 07:59 15:59 Intake Total 1000 / 1000 250 / 250 1120 / 1120 Output Total 250 / 250 250 / 250 Balance 750 / 750 0 / 0 1120 / 1120 Intake: IV Fluids 1000 / 1000 250 / 250 1000 / 1000 0.9 % Sodium Chloride 1, 1000 / 1000 1000 / 1000 000 ML @ 75 mls/hr IVC . [id number] [facility] Rx#: [id number] Vancocin 1,000 MG In 250 / 250 Dextrose 5% 250 ML @ 250 mls/hr IVPB Q24H [facility] Rx#: [id number] Oral 120 / 120 Output: Urine 250 / 250 250 / 250 Other: Meal Breakfast Percent of Meal Consumed 50% General: Conversant, No Apparent Distress HEENT: Atraumatic, Normocephaly, Mucus Membranes Moist Neck: No JVD, Normal carotid pulses Cardiac: Reg Rate and Rhythm, Normal S1 and S2, No Murmur Lungs: Normal Breath Sounds, No Wheeze, Rales, Rhonchi Neuro: Alert and responsive, No focal deficits noted Abdomen: Soft, Non-Tender Skin: No rashes noted on visualized skin Musculoskeletal: No Chest Wall Tenderness Extremities: Other (1+ BLE edema) Results 11/20/16 00:40 11/20/16 00:40 Lab Results 11/19/16 11/20/16 11/20/16 18:11 00:40 00:40 WBC 1.5 L D Hgb 10.1 L D Hct 30.6 L Plt Count 48 L Sodium Potassium Chloride Carbon Dioxide BUN Creatinine Glucose Calcium Magnesium Total Bilirubin AST ALT Alkaline Phosphatase Troponin I 0.12 H* 0.12 H* 11/20/16 00:40 WBC Hgb Hct Plt Count Sodium 136 Potassium 4.3 Chloride 112 H Carbon Dioxide 19 BUN 23 Creatinine 1.30 H Glucose 121 H Calcium 7.7 L Magnesium 1.4 L Total Bilirubin 0.9 D AST 16 ALT 25 Alkaline Phosphatase 63 Troponin I Short CBC 11/20/16 Range/Units 00:40 WBC 1.5 L D (4.3-11.1) K/mcL Hgb 10.1 L D (12.9-16.9) g/dL Hct 30.6 L (37.5-50.1) % Plt Count 48 L (140-400) K/mcL BMP 11/20/16 Range/Units 00:40 Sodium 136 (136-145) mEq/L Potassium 4.3 (3.5-4.5) mEq/L Chloride 112 H (98-109) mEq/L Carbon Dioxide 19 (19-29) mEq/L BUN 23 (8-26) mg/dL Creatinine 1.30 H (0.72-1.25) mg/dL Glucose 121 H (70-99) mg/dL Calcium 7.7 L (8.6-10.8) mg/dL Cardiac Enzymes 11/20/16 11/19/16 Range/Units 00:40 18:11 Troponin I 0.12 H* 0.12 H* (0-0.03) ng/mL Liver Function 11/20/16 Range/Units 00:40 Total Bilirubin 0.9 D (0.2-1.2) mg/dL AST 16 (5-34) Units/L ALT 25 (0-55) Units/L Alkaline Phosphatase 63 (38-126) Units/L Albumin 2.4 L (3.5-5.0) g/dL Active Medications Acyclovir (Zovirax) 800 mg PO BID [facility] Stop: 05/21/17 12:16 Last Admin: 11/20/16 09:30 Dose: 800 mg Alprazolam (Xanax) 0.5 mg PO TID [facility] PRN Reason: Protocol Stop: 05/22/17 09:01 Last Admin: 11/20/16 09:30 Dose: Not Given Amlodipine Besylate (Norvasc) 5 mg PO DAILY [facility] PRN Reason: Protocol Stop: 05/21/17 12:16 Last Admin: 11/20/16 09:29 Dose: 5 mg Aspirin (Aspirin Ec) 81 mg PO DAILY [facility] Stop: 05/21/17 12:16 Last Admin: 11/20/16 09:30 Dose: 81 mg Fentanyl (Duragesic) 25 mcg TD Q72H [facility] Stop: 05/21/17 12:16 Last Admin: 11/19/16 12:27 Dose: 25 mcg Furosemide (Lasix) 20 mg PO DAILY PRN PRN Reason: Edema Stop: 05/21/17 12:11 Last Admin: 11/19/16 13:04 Dose: 20 mg Sodium Chloride (0.9 % Sodium Chloride) 1,000 mls @ 75 mls/hr IVC .[id number] [facility] Stop: 05/21/17 02:16 Last Admin: 11/20/16 09:33 Dose: 75 mls/hr Vancomycin HCl 1,000 mg/ (Dextrose) 250 mls @ 250 mls/hr IVPB Q24H [facility] Stop: 05/22/17 02:01 Last Infusion: 11/20/16 02:28 Dose: Infused Metoprolol Tartrate (Lopressor) 5 mg IVP Q6HR PRN PRN Reason: Blood Pressure - High Stop: 05/21/17 17:03 Last Admin: 11/19/16 17:12 Dose: 5 mg Multivitamins/Calcium (Thera M Plus) 1 tab PO DAILY [facility] Stop: 05/21/17 12:16 Last Admin: 11/20/16 09:30 Dose: 1 tab Naloxone HCl (Narcan) 0.4 mg IVP Q2MIN PRN PRN Reason: Opioid Reversal Stop: 05/21/17 03:04 Omeprazole (Prilosec) 20 mg PO DAILY [facility] PRN Reason: Protocol Stop: 05/21/17 12:16 Last Admin: 11/20/16 09:29 Dose: 20 mg Pharmacy Profile Note (Patient Taking Own Medication) 1 each PO DAILY [facility] Stop: 05/21/17 12:16 Last Admin: 11/20/16 09:30 Dose: Not Given Prochlorperazine Maleate (Compazine) 10 mg PO Q6HR PRN PRN Reason: Nausea Stop: 05/21/17 12:11 Zolpidem Tartrate (Ambien) 5 mg PO HS PRN; Protocol PRN Reason: Insomnia Stop: 05/21/17 18:31 Last Admin: 11/19/16 20:00 Dose: 5 mg - Imaging and Cardiology Echo: report reviewed - EKG Interpretation EKG results cardiology: personally reviewed (Sinus tach), other (24 hr tele AVG HR 107, sinus tach, no significant pauses or arrhythmias.) Consult Discharge Plan - Plan Referrals: Sal Tomlin MD [Primary Care Provider] - 11/30/16 9:45 am
[2016-11-20] MEDS: Metoprolol XL (24 HR) Succ 25 MG TAB.ER.24H PO SCH (12:19)
--- NOTE | 2016-11-20 18:34 | Internal Med Progress Note ---
Date of Encounter: 11/20/16 Time of Encounter: 07:45 - Assessment and plan (1) Acute systolic CHF (congestive heart failure), NYHA class 2 Current Visit: Yes Status: Acute Assessment and plan: Card eval today. To have stress test tomorrow. Medications adjusted today. (2) Pancytopenia Current Visit: Yes Status: Acute Assessment and plan: Related to chemotherapy. Currently on hold. Numbers slowly improving. (3) Acute kidney injury Current Visit: Yes Status: Acute Assessment and plan: Continue supportive care and avoid nephrotoxins. (4) Multiple myeloma Current Visit: Yes Status: Chronic Assessment and plan: Appreciate oncology input. Qualifiers: Multiple myeloma remission status: not in remission Qualified Code(s): C90.00 - Multiple myeloma not having achieved remission (5) Anxiety Current Visit: Yes Status: Chronic Assessment and plan: Meds adjusted. (6) Insomnia due to anxiety and fear Current Visit: Yes Status: Acute Assessment and plan: PRN meds. - Subjective Interval history: Mr. Craig is currently admitted for anemia and pancytopenia related to multiple myeloma treatment and acute systolic CHF. He is moderate to high risk due to potential for worsening cardiac status. Mr. Craig is still very anxious. He slept some last night. No CP or SOB. No cough. No fever or chills. No diarrhea. Cardiology to see today. - Constitutional Vitals: Temp Pulse Resp BP Pulse Ox 97.5 F L 102 16 133/84 96 11/20/16 14:35 11/20/16 14:35 11/20/16 14:35 11/20/16 14:35 11/20/16 14:35 General appearance: Present: A&O X 3, answers questions appropriately - Head Head exam: Present: normocephalic - Eye Eye exam: Present: EOMI, conjuntiva pink - ENT ENT exam: Present: mucous membranes moist - Respiratory Respiratory exam: Present: CTAB. Absent: rales, rhonchi, wheezes - Cardiovascular Cardiovascular exam: Present: RRR, tachycardia - GI/Abdominal GI/Abdominal exam: Present: soft. Absent: tenderness - Extremities Exam Extremities exam: Present: warm. Absent: tenderness - Neurological Exam Neurological exam: Present: alert, oriented X3, no focal deficits - Psychiatric Psychiatric exam: Present: anxious - Skin Skin exam: Present: dry, warm. Absent: rash Internal Medicine: Result - Labs CBC & Chem 7: 11/20/16 00:40 11/20/16 00:40 Labs: Short CBC 11/20/16 Range/Units 00:40 WBC 1.5 L D (4.3-11.1) K/mcL Hgb 10.1 L D (12.9-16.9) g/dL Hct 30.6 L (37.5-50.1) % Plt Count 48 L (140-400) K/mcL BMP 11/20/16 00:40 Sodium 136 Potassium 4.3 Chloride 112 H Carbon Dioxide 19 BUN 23 Creatinine 1.30 H Glucose 121 H Calcium 7.7 L Cardiac Enzymes 11/19/16 11/20/16 Range/Units 18:11 00:40 Troponin I 0.12 H* 0.12 H* (0-0.03) ng/mL Liver Function 11/20/16 Range/Units 00:40 Total Bilirubin 0.9 D (0.2-1.2) mg/dL AST 16 (5-34) Units/L ALT 25 (0-55) Units/L Alkaline Phosphatase 63 (38-126) Units/L Albumin 2.4 L (3.5-5.0) g/dL - ABG Interpretation ABG results: PT/INR, D-dimer PT 14.4 Seconds (9.4-12.1) H 11/18/16 22:35 D-Dimer 1168 ng/mLFEU (0-500) H 11/18/16 22:35 - VTE Documentation of Mechanical Device: Intermittent pneumatic compression device Consult Discharge Plan - Plan Referrals: Sal Tomlin MD [Primary Care Provider] - 11/30/16 9:45 am
[2016-11-21] MEDS: Vancomycin 1,000 MG in D5% in Water 250 ML IVPB SCH (01:53)
[2016-11-21 04:39] VITALS: BP 150/97
[2016-11-21 05:06] LABS: Mean Corpuscular HGB Conc 32.4 g/dL (31.6-35.5); Mean Corpuscular Hemoglobin 30.6 pg (28.0-33.3); Red Cell Distribution Width 20.4 % (11.5-14.5)
[2016-11-21 05:07] LABS: Hematocrit 31.8 % (37.5-50.1); Hemoglobin 10.3 g/dL (12.9-16.9); Mean Corpuscular Volume 94.4 fL (83.0-100.0); Mean Platelet Volume 11.9 fL (9.4-12.4); Red Blood Count 3.37 M/mcL (4.19-5.50)
[2016-11-21 05:08] LABS: Platelet Count 39 K/mcL (140-400)
[2016-11-21 05:19] LABS: Alanine Aminotransferase 16 Units/L (0-55); Albumin 2.3 g/dL (3.5-5.0); Albumin/Globulin Ratio 0.5 (1.1-2.2); Alkaline Phosphatase 61 Units/L (38-126); Aspartate Amino Transferase 13 Units/L (5-34); BUN/Creatinine Ratio 18 (6-26); Blood Urea Nitrogen 21 mg/dL (8-26); Calcium 7.2 mg/dL (8.6-10.8); Carbon Dioxide 22 mEq/L (19-29); Chloride 112 mEq/L (98-109); Globulin 4.2 g/dL (2.4-3.5); Glucose 85 mg/dL (70-99); Magnesium 1.8 mg/dL (1.6-2.6); Osmolality,Calculated 284 (280-300); Potassium 3.9 mEq/L (3.5-4.5); Sodium 136 mEq/L (136-145); Total Protein 6.5 g/dL (6.0-8.3); eGFR For African Americans > 60 (> 60); eGFR For Non-African Americans > 60 (> 60)
[2016-11-21] MEDS ORDERED: Regadenoson 0.4 MG/5 ML SYRINGE IVP ONE (06:43)
--- NOTE | 2016-11-21 09:25 | Cardiology Progress Note ---
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 Suspect nonischemic secondary to Carfilzomib, as EF was previously 55% 06/2016 prior to starting the medication. Recommend holding Carfilzomib. However, ischemic origin cannot be ruled out. No hx of CAD and no prior ischemic work-up. Complicated by his multiple myeloma and pancytopenia. Platelet count 39. To obtain further information on whether or not this is ischemic in nature, recommended stress test today. Stress test is negative for ischemia. Recommend holding medication for 1-2 weeks and repeating echo. If EF returns to normal, would recommend oncology consider restarting Carfilzomib at a lower dose. Continue BB and DI-I for CMP. Cardiology signing off. Reconsult PRN. Will coordinate outpt follow-up and the outpt echo with our office. Follow-up with Dr. Pryor in 2 weeks. Qualifiers: Cardiomyopathy type: unspecified Qualified Code(s): I42.9 - Cardiomyopathy , unspecified (2) Acute systolic CHF (congestive heart failure), NYHA class 2 Current Visit: Yes Status: Acute Reports of worsening dyspnea and lower extremity edema over the past 2 weeks. EF found to be 30%, previously 55% as above. On PRN Lasix currently. Recommend strict I/Os, daily weights, Na and fluid restriction. (3) Elevated troponin Current Visit: Yes Status: Acute 0.04, 0.05, 0.12, 0.12 in setting of acute CHF, UTI and tachycardia. Suspect demand ischemia, nondiagnostic for ACS. Pt denies chest pain. Stress test negative for ischemia. (4) Tachycardia Current Visit: Yes Status: Acute Sinus tachycardia with ectopy, now improved with addition of BB. No evidence of significant arrhythmias. 12 hr tele AVG HR 94, SR. (5) Multiple myeloma Current Visit: Yes Status: Chronic Management per oncology. Multiple failed agents in the past. Carfilzomib has been the only medication to slow progression, but now with CMP EF 30% possibly from the medication. Recommend holding Carfilzomib until/if EF recovers. If EF recovers, recommend restarting at a lower dose. Qualifiers: Multiple myeloma remission status: not in remission Qualified Code(s): C90.00 - Multiple myeloma not having achieved remission Discussion w patient/family: The assessment and plan as outlined above was discussed with the patient and/or family members who expressed understanding and agreement. All questions were answered. Thank you for involving us in the care of your patient. Please call with any questions. I will discuss all the above with Dr. Ye and make changes as necessary. Subjective Principal diagnosis: CMP Interval history: Stress test today negative for ischemia. Could not rule out prior infarct, but no high risk findings. Pt denies acute complaints. Objective Vital Signs Temp Pulse Resp BP Pulse Ox 11/21/16 03:40 97.8 F 90 18 150/97 98 11/20/16 23:50 97.7 F 78 16 143/88 98 11/20/16 18:51 97.5 F L 97 18 129/91 98 11/20/16 14:35 97.5 F L 102 16 133/84 96 11/20/16 11:22 97.8 F 97 16 138/89 96 Intake and Output 11/20/16 11/21/16 11/21/16 23:59 07:59 15:59 Intake Total 1000 / 1000 Output Total 200 / 200 Balance 1000 / 1000 -200 / -200 Intake: IV Fluids 1000 / 1000 0.9 % Sodium Chloride 1, 1000 / 1000 000 ML @ 75 mls/hr IVC . [id number] [facility] Rx#: [id number] Output: Urine 200 / 200 Other: Weight 65.3 kg Patient Weight 11/21/16 23:59 Weight 65.3 kg General: Conversant, No Apparent Distress HEENT: Atraumatic, Normocephaly, Mucus Membranes Moist Neck: Normal carotid pulses Cardiac: Reg Rate and Rhythm, Normal S1 and S2, No Murmur Lungs: Normal Breath Sounds Neuro: Alert and responsive, No focal deficits noted Abdomen: Soft, Non-Tender Skin: No rashes noted on visualized skin Musculoskeletal: No Chest Wall Tenderness Extremities: No Clubbing, No Cyanosis, No Edema, Normal Pulses Results 11/21/16 04:37 11/21/16 04:37 Lab Results 11/21/16 11/21/16 04:37 04:37 WBC 1.5 L Hgb 10.3 L Hct 31.8 L Plt Count 39 L Sodium 136 Potassium 3.9 Chloride 112 H Carbon Dioxide 22 BUN 21 Creatinine 1.15 Glucose 85 Calcium 7.2 L Magnesium 1.8 Total Bilirubin 1.0 AST 13 ALT 16 Alkaline Phosphatase 61 Short CBC 11/21/16 Range/Units 04:37 WBC 1.5 L (4.3-11.1) K/mcL Hgb 10.3 L (12.9-16.9) g/dL Hct 31.8 L (37.5-50.1) % Plt Count 39 L (140-400) K/mcL BMP 11/21/16 Range/Units 04:37 Sodium 136 (136-145) mEq/L Potassium 3.9 (3.5-4.5) mEq/L Chloride 112 H (98-109) mEq/L Carbon Dioxide 22 (19-29) mEq/L BUN 21 (8-26) mg/dL Creatinine 1.15 (0.72-1.25) mg/dL Glucose 85 (70-99) mg/dL Calcium 7.2 L (8.6-10.8) mg/dL Liver Function 11/21/16 Range/Units 04:37 Total Bilirubin 1.0 (0.2-1.2) mg/dL AST 13 (5-34) Units/L ALT 16 (0-55) Units/L Alkaline Phosphatase 61 (38-126) Units/L Albumin 2.3 L (3.5-5.0) g/dL Active Medications Acyclovir (Zovirax) 800 mg PO BID [facility] Stop: 05/21/17 12:16 Last Admin: 11/20/16 22:12 Dose: 800 mg Alprazolam (Xanax) 0.5 mg PO TID [facility] PRN Reason: Protocol Stop: 05/22/17 09:01 Last Admin: 11/20/16 22:12 Dose: 0.5 mg Amlodipine Besylate (Norvasc) 5 mg PO DAILY [facility] PRN Reason: Protocol Stop: 05/21/17 12:16 Last Admin: 11/20/16 09:29 Dose: 5 mg Aspirin (Aspirin Ec) 81 mg PO DAILY [facility] Stop: 05/21/17 12:16 Last Admin: 11/20/16 09:30 Dose: 81 mg Fentanyl (Duragesic) 25 mcg TD Q72H [facility] Stop: 05/21/17 12:16 Last Admin: 11/19/16 12:27 Dose: 25 mcg Sodium Chloride (0.9 % Sodium Chloride) 1,000 mls @ 75 mls/hr IVC .[id number] [facility] Stop: 05/21/17 02:16 Last Admin: 11/20/16 22:13 Dose: 75 mls/hr Vancomycin HCl 1,000 mg/ (Dextrose) 250 mls @ 250 mls/hr IVPB Q24H [facility] Stop: 05/22/17 02:01 Last Admin: 11/21/16 01:53 Dose: 250 mls/hr Lisinopril (Zestril) 10 mg PO DAILY [facility] PRN Reason: Protocol Stop: 05/22/17 11:31 Last Admin: 11/20/16 12:19 Dose: 10 mg Metoprolol Succinate (Toprol Xl) 25 mg PO DAILY [facility] Stop: 05/22/17 11:16 Last Admin: 11/20/16 12:19 Dose: 25 mg Metoprolol Tartrate (Lopressor) 5 mg IVP Q6HR PRN PRN Reason: Blood Pressure - High Stop: 05/21/17 17:03 Last Admin: 11/19/16 17:12 Dose: 5 mg Multivitamins/Calcium (Thera M Plus) 1 tab PO DAILY [facility] Stop: 05/21/17 12:16 Last Admin: 11/20/16 09:30 Dose: 1 tab Naloxone HCl (Narcan) 0.4 mg IVP Q2MIN PRN PRN Reason: Opioid Reversal Stop: 05/21/17 03:04 Omeprazole (Prilosec) 20 mg PO DAILY [facility] PRN Reason: Protocol Stop: 05/21/17 12:16 Last Admin: 11/20/16 09:29 Dose: 20 mg Prochlorperazine Maleate (Compazine) 10 mg PO Q6HR PRN PRN Reason: Nausea Stop: 05/21/17 12:11 Zolpidem Tartrate (Ambien) 5 mg PO HS PRN; Protocol PRN Reason: Insomnia Stop: 05/21/17 18:31 Last Admin: 11/20/16 22:12 Dose: 5 mg - Imaging and Cardiology Stress Test: report reviewed Echo: report reviewed - EKG Interpretation EKG results cardiology: other (12 hour tele AVG HR 94, SR, no significant pauses or arrhythmias.) - VTE Documentation of Mechanical Device: Intermittent pneumatic compression device Consult Discharge Plan - Plan Referrals: Sal Tomlin MD [Primary Care Provider] - 11/30/16 9:45 am
[2016-11-21] MEDS: Aspirin Enteric Coated 81 MG Tablet PO SCH (09:48)
[2016-11-21] MEDS: amLODIPine 5 MG TABLET PO SCH (09:49)
[2016-11-21] MEDS: ALPRAZolam 0.5 MG TABLET PO SCH (09:49)
[2016-11-21] MEDS: Multivit/Ca/Min/Fe/FA 1 TAB TABLET PO SCH (09:49)
[2016-11-21] MEDS: Metoprolol XL (24 HR) Succ 25 MG TAB.ER.24H PO SCH (09:49)
--- NOTE | 2016-11-21 10:13 | Nuclear Medicine Stress Report ---
Regadenoson Nuclear Stress Name: Van Craig Date of Study: 11/21/2016 Date: 1940 Ht: 64.0 in Medical Record#: [id number] Age: 76 Wt: 143.0 lb Gender: Male Order #: [id number] Location: [facility] Room: [facility] Supervising Provider: Sree Ye DO, FACC, FASNC Reading Physician: Sree Ye DO, FACC, FASNC Ordering Physician: Robert Powell DO Primary Care Physician: Sal Tomlin MD Stress Technologist: Tien Rosas [employer], [facility] Physical Therapist: Malcolm Thao Indications: Shortness of breath, Cardiomyopathy Impression: Pharmacologic stress ECG is negative for ischemia at level of heart rate achieved. Gated EF = 31%. The left ventricle is dilated. LVEDV = 185 mL. Medium sized, mild to moderate intensity, primarily fixed basal to mid inferior/inferolateral defect. A prior infarct cannot be excluded. Perfusion imaging was negative for ischemia. History: Hypertension Stress Test Summary: Stress Test Type: Pharmacologic Regadenoson 0.4mg/5ml given IV Baseline Information: Initial Heart Rate: 97 Blood Pressure: 152/76 Stress Information: Stress Time: 4 min 00 sec Test Terminated Due to (primary): Completed Protocol Maximum Blood Pressure: 142/76 Maximum Heart Rate: 115 Percent Maximum Heart Rate Achieved: 79 Double Product: 16,330 METS Reached: 1 Symptoms: Shortness of breath Nuclear Summary: SPECT myocardial perfusion imaging using Tc99m Sestamibi given intravenously was performed at rest and following cardiac stress testing. The resting images were obtained following initial dose of 11.6 mCi. Following stress an additional dose of 35.4 mCi was given at peak exercise or 30 seconds post regadenoson infusion. Medication Given: Time Medication Dose Units Route Findings: Stress Note * Resting ECG demonstrated normal sinus rhythm. * frequent PACs noted prior to exam beginning. * Pharmacologic stress ECG is negative for ischemia at level of heart rate achieved. * Frequent PACs noted during stress. * Rare PVCs noted during stress. * Patient had no chest pain during stress. * Normal hemodynamic responses to pharmacologic stress. Study Quality * Study quality is average. Gated EF % * Gated EF = 31%. Left Ventricle * The left ventricle is dilated. LVEDV = 185 mL. * Global Hypokinesis in Stress. Inferior Perfusion Rest * The inferior/inferolateral segments show a mild to moderate reduction in perfusion. Inferior Perfusion Stress * The inferior/inferolateral segments show a mild to moderate reduction in perfusion. TID * No evidence of transient ischemic dilatation. TID ratio = 1.12. Lung Uptake * There is no evidence of increase lung uptake. Updated by Sree Ye DO, FACElizabeth, DANICA, FROY on 11/21/2016 10:08:24 AM electronically signed on 11/21/2016 10:09:21 AM with status of Final
--- NOTE | 2016-11-21 10:43 | Discharge Summary ---
Date of Encounter: 11/21/16 Time of Encounter: 10:30 - Discharge Diagnosis (1) Acute respiratory failure with hypoxia Priority: Primary Status: Resolved (2) Acute systolic CHF (congestive heart failure), NYHA class 2 Priority: Primary Status: Acute (3) Pancytopenia Priority: Secondary Status: Acute (4) Acute kidney injury Priority: Secondary Status: Acute (5) Multiple myeloma Priority: Secondary Status: Chronic Qualifiers: Multiple myeloma remission status: not in remission Qualified Code(s): C90.00 - Multiple myeloma not having achieved remission (6) Anxiety Priority: Secondary Status: Chronic (7) Insomnia due to anxiety and fear Priority: Secondary Status: Acute - Discharge Medications Prescriptions: RX: Lisinopril [Zestril] 10 mg PO DAILY #30 tablet RX: Metoprolol XL (24 HR) Succ [Toprol Xl] 25 mg PO DAILY #30 tab.er.24h RX: Zolpidem [Ambien] 5 mg PO HS PRN #30 tablet PRN Reason: Insomnia Home Medications: Multivit-Min/FA/Lycopen/Lutein [Centrum Silver Tablet] 1 tab PO DAILY 01/04/15 [ History] Aspirin [Adult Low Dose Aspirin EC] 81 mg PO DAILY #30 tablet. 02/01/15 [Rx] amLODIPine [Norvasc] 5 mg PO DAILY 07/16/16 [History] Omeprazole [PriLOSEC] 20 mg PO DAILY #90 cap 08/18/16 [Rx] Lactulose 10 ml PO BID PRN #300 mls 09/03/16 [Rx] Aloe Vera 25 mg PO DAILY 09/11/16 [History] [place] Xtr/Zinc Picolin [Saw [place] Capsule] 1 cap PO DAILY 09/11/16 [ History] Prochlorperazine Maleate [Compazine] 10 mg PO Q6HR PRN #30 tablet 10/21/16 [Rx] ALPRAZolam [Xanax 0.5 MG Tablet] 0.5 mg PO BID PRN #40 tablet 11/17/16 [Rx] FentaNYL PATCH [Duragesic] 25 mcg TD Q72H #10 patch.td72 11/17/16 [Rx] Acyclovir [Zovirax] 800 mg PO BID tablet 11/21/16 [Rx] Furosemide [Lasix] 20 mg PO DAILY PRN #30 tablet 11/21/16 [Rx] Lisinopril [Zestril] 10 mg PO DAILY #30 tablet 11/21/16 [Rx] Metoprolol XL (24 HR) Succ [Toprol Xl] 25 mg PO DAILY #30 tab.er.24h 11/21/16 [ Rx] Zolpidem [Ambien] 5 mg PO HS PRN #30 tablet 11/21/16 [Rx] Allergies/Adverse Reactions: Allergies clarithromycin [From Biaxin] Adverse Reaction (Verified 09/28/16 15:36) Nausea Penicillins [PCN] Adverse Reaction (Verified 09/28/16 15:36) Fainting Sulfa (Sulfonamide Antibiotics) Adverse Reaction (Verified 09/28/16 15:36) Hives Procedures/tests Complete & Pending: Procedures Performed prior 72 hours Category Date Time Status NM josep perf SPECT multi [NM] Routine Exams 11/20/16 11:05 Taken EV echocardiogram Routine Y 11/19/16 03:11 Completed SP pharm nuclear stress Routine Y 11/21/16 08:00 Completed Date of admission: 11/19/16 03:03 Primary care physician: Sal Tolmin MD Consults: 11/19/16 03:11 Consult to Oncology [CONS] Routine Consulting Provider: [facility] [place] Reason for Consult: Neutropenia Call Completed: No 11/20/16 08:03 Consult to Cardiology [CONS] Routine Comment: Consulting Provider: [facility] [place] Reason for Consult: CHF Time Notified: 08:00 Call Completed: Yes Discharging clinician: Robert Powell Anticipated date of discharge: 11/21/16 - Patient Status Disposition: Home, Self-Care Condition: Good Functional capacity at discharge: independent ambulation Overall status at discharge: patient is progressing back to baseline - Discharge Instructions Follow Up With: Sal Tomlin MD [Primary Care Provider] - 11/30/16 9:45 am - Diet and Activity Activity: increase activity as tolerated Diet: advance to your usual diet Hospital course: Mr. Craig is a 76 year old male with hx of multiple myeloma presented to ED with tachycardia and anxiety. He had been using Xanax as well at home. No CP or SOB. He was evaluated in the ED and admitted for further workup and treatment. Mr. Craig was admitted to [facility]. He was continued on his Xanax and other home meds. His creatinine was somewhat elevated do V/Q was ordered. He was unable to lie down for test. He had echo which revealed significant drop in EF most likely related to chemo. He was seen by cardiology and underwent stress test which was negative. He did receive 2 units PRBCs with some improvement as well and his overall blood counts were monitored due to pancytopenia. He was also evaluated by the oncology service with recommendations for outpatient follow up. He was having significant difficulty sleeping and responded to Ambien in addition to Xanax. On 11/21 he was feeling well. He was afebrile and vitals were stable. His stress was negative and he had been started on metoprolol and lisinopril. He was felt ready for discharge home with outpatient follow up. - Time Spent with Patient Total time spent providing and/or coordinating discharge services: 40min - Constitutional Vitals: Temp Pulse Resp BP Pulse Ox 97.8 F 90 18 150/97 98 11/21/16 03:40 11/21/16 03:40 11/21/16 03:40 11/21/16 03:40 11/21/16 03:40 General appearance: Present: A&O X 3, pleasant, answers questions appropriately - Head Head exam: Present: normocephalic - Eye Eye exam: Present: EOMI, conjuntiva pink - ENT ENT exam: Present: mucous membranes moist - Respiratory Respiratory exam: Present: decreased breath sounds, CTAB. Absent: rales, rhonchi, wheezes - Cardiovascular Cardiovascular exam: Present: RRR. Absent: tachycardia - GI/Abdominal GI/Abdominal exam: Present: soft. Absent: tenderness - Extremities Exam Extremities exam: Present: warm. Absent: tenderness - Neurological Exam Neurological exam: Present: alert, oriented X3, no focal deficits - Psychiatric Psychiatric exam: Present: normal affect, normal mood - Skin Skin exam: Present: dry, warm. Absent: rash - VTE Documentation of Mechanical Device: Intermittent pneumatic compression device
[2016-11-21] MEDS ORDERED: Aminoglycoside Consult 1 EACH MC ONE (11:40)
== END 2016-11-21 11:41 | disposition home or self-care (01) | DRG 808 ==
LOC: 2ANU 21:42 → EMEROO 21:42 → 2ANU 11-19 01:55 → SUATTDRO 11-19 03:03
PROVIDERS: ADMIT Internal Medicine; ATTEND Internal Medicine

== ENCOUNTER 2016-12-02 16:02 | Inpatient (IN) ==
--- NOTE | 2016-12-02 16:18 | Emergency Department Note ---
Disposition Clinical Impression: Small bowel obstruction Disposition: Admitted As Inpatient Condition: Good Referrals: Sal Tomlin MD [Primary Care Provider] - Forms: Work/School Release, ED Satisfaction Letter General Adult HPI - General Chief complaint: ED Abdominal Pain Stated complaint: Lower Abd Pain Time Seen by Provider: 12/02/16 16:09 Source: patient Limitations: no limitations - History of Present Illness Pain Scale: 10 - Related Data Home Medications Medication Instructions Recorded Confirmed Multivit-Min/FA/Lycopen/Lutein 1 tab PO DAILY 01/04/15 12/02/16 [Centrum Silver Tablet] amLODIPine [Norvasc] 5 mg PO DAILY 07/16/16 12/02/16 Cyanocobalamin (Vitamin B-12) 100 mcg PO DAILY 12/02/16 12/02/16 [Vitamin B-12] Previous Rx's Medication Instructions Recorded Aspirin [Adult Low Dose Aspirin EC] 81 mg PO DAILY #30 tablet. 02/01/15 Omeprazole [PriLOSEC] 20 mg PO DAILY #90 cap 08/18/16 Prochlorperazine Maleate 10 mg PO Q6HR PRN #30 tablet 10/21/16 [Compazine] ALPRAZolam [Xanax 0.5 MG Tablet] 0.5 mg PO BID PRN #40 tablet 11/17/16 FentaNYL PATCH [Duragesic] 25 mcg TD Q72H #10 patch.td72 11/17/16 Acyclovir [Zovirax] 800 mg PO BID tablet 11/21/16 Furosemide [Lasix] 20 mg PO DAILY PRN #30 tablet 11/21/16 Lisinopril [Zestril] 10 mg PO DAILY #30 tablet 11/21/16 Metoprolol XL (24 HR) Succ [Toprol 25 mg PO DAILY #30 tab.er.24h 11/21/16 Xl] Pomalidomide [Pomalyst] 2 mg PO DAILY #21 capsule 11/25/16 Allergies Allergy/AdvReac Type Severity Reaction Status Date / Time clarithromycin [From Biaxin] AdvReac Nausea Verified 09/28/16 15:36 Penicillins [PCN] AdvReac Fainting Verified 09/28/16 15:36 Sulfa (Sulfonamide AdvReac Hives Verified 09/28/16 15:36 Antibiotics) Past Medical History - Past Medical History Medical history: Reports: cancer, GERD, other Surgical history: Reports: appendectomy, other Psychiatric history: Reports: no psych history - Social History Smoking Status: Never smoker Smokeless Tobacco Status: No Alcohol use: Reports: none Drug use: Reports: none Physical Exam - General Limitations: no limitations General appearance: alert, in no apparent distress Course Vital Signs Temperature 97.4 F L 12/02/16 16:05 Pulse Rate 71 12/02/16 16:05 Respiratory Rate 16 12/02/16 16:05 Blood Pressure 162/76 12/02/16 16:05 O2 Sat by Pulse Oximetry 96 12/02/16 16:05 Temperature 97.4 F L 12/02/16 16:05 Pulse Rate 85 12/02/16 18:38 Respiratory Rate 16 12/02/16 18:38 Blood Pressure 147/75 12/02/16 18:38 O2 Sat by Pulse Oximetry 95 12/02/16 18:38 Oxygen Delivery Oxygen Delivery Room Air Medical Decision Making - Lab Data Result diagrams: 12/02/16 17:00 12/02/16 17:00 Lab Results 12/02/16 12/02/16 Range/Units 17:00 17:00 WBC 2.2 L (4.3-11.1) K/mcL RBC 3.25 L (4.19-5.50) M/mcL Hgb 10.2 L (12.9-16.9) g/dL Hct 31.6 L (37.5-50.1) % MCV 97.2 (83.0-100.0) fL MCH 31.4 (28.0-33.3) pg MCHC 32.3 (31.6-35.5) g/dL RDW 22.1 H (11.5-14.5) % Plt Count 120 L (140-400) K/mcL MPV 10.6 (9.4-12.4) fL Immature Gran % 0.0 (0-4) % Seg Neutrophils % 39.7 % Lymphocytes % 46.0 % Monocytes % 10.3 % Eosinophils % 3.1 % Basophils % 0.9 % Neutrophils # 0.9 L (1.6-8.9) K/mcL Lymphocytes # 1.0 (0.6-4.6) K/mcL Monocytes # 0.2 (0.0-1.3) K/mcL Eosinophils # 0.1 (0.0-0.6) K/mcL Basophils # 0.0 (0.0-0.2) K/mcL Sodium 137 (136-145) mEq/L Potassium 3.4 L (3.5-4.5) mEq/L Chloride 103 (98-109) mEq/L Carbon Dioxide 31 H (19-29) mEq/L BUN 15 (8-26) mg/dL Creatinine 1.20 (0.72-1.25) mg/dL Est GFR ( Amer) > 60 (> 60) Est GFR (Non-Af Amer) 59 L (> 60) BUN/Creatinine Ratio 13 (6-26) Glucose 92 (70-99) mg/dL Calculated Osmolality 284 (280-300) Calcium 9.7 (8.6-10.8) mg/dL Total Bilirubin 1.3 H (0.2-1.2) mg/dL AST 16 (5-34) Units/L ALT 9 (0-55) Units/L Alkaline Phosphatase 60 (38-126) Units/L Serum Total Protein 8.7 H (6.0-8.3) g/dL Albumin 3.4 L (3.5-5.0) g/dL Globulin 5.3 H (2.4-3.5) g/dL Albumin/Globulin Ratio 0.6 L (1.1-2.2) Attestation Statement - Attestation Attestation: I examined this patient and my medical decision-making was reviewed with the [employer] WORKER/PA/Advanced Practice Nurse/Resident Physician. I agree with the documented findings, disposition and treatment plan as described except to the extent set forth below. Face to face time provided LLQ pain after eating seeds. uncomfortable appearing on exam. Plan of care and management discussed by me with resident physician
[2016-12-02] MEDS ORDERED: Ondansetron 4 MG/2 ML VIAL IVP ONE (16:19)
--- NOTE | 2016-12-02 16:20 | Emergency Department Note ---
Disposition Clinical Impression: Small bowel obstruction Disposition: Admitted As Inpatient Condition: Good Referrals: Sal Tomlin MD [Primary Care Provider] - Forms: ED Satisfaction Letter, Work/School Release Time of Disposition: 18:26 Abdominal Pain HPI - General Chief Complaint: ED Abdominal Pain Stated Complaint: Lower Abd Pain Time Seen by Provider: 12/02/16 16:09 Source: patient, family Mode of arrival: ambulatory Limitations: no limitations Nursing Notes Reviewed: Yes Vital Signs Reviewed: Yes - History of Present Illness HPI Narrative: 76-year-old male presenting to the emergency department with left lower quadrant pain. He stated it started this morning and has progressively been getting worse. Last night he ate a granola bar with multiple seeds in it. He states pain is 10/10 . It does not radiate. It stays in left lower quadrant. He describes it as an aching and sharp pain. He took 2 ibuprofen at home with no relief. Pt Subjective Complaint: abdominal pain Onset (ago): hour(s) Consistency: constant, Worsening Location: LLQ Pain Severity: severe Pain Scale: 10 - Related Data Home Medications Medication Instructions Recorded Confirmed Multivit-Min/FA/Lycopen/Lutein 1 tab PO DAILY 01/04/15 12/02/16 [Centrum Silver Tablet] amLODIPine [Norvasc] 5 mg PO DAILY 07/16/16 12/02/16 Cyanocobalamin (Vitamin B-12) 100 mcg PO DAILY 12/02/16 12/02/16 [Vitamin B-12] Previous Rx's Medication Instructions Recorded Aspirin [Adult Low Dose Aspirin EC] 81 mg PO DAILY #30 tablet. 02/01/15 Omeprazole [PriLOSEC] 20 mg PO DAILY #90 cap 08/18/16 Prochlorperazine Maleate 10 mg PO Q6HR PRN #30 tablet 10/21/16 [Compazine] ALPRAZolam [Xanax 0.5 MG Tablet] 0.5 mg PO BID PRN #40 tablet 11/17/16 FentaNYL PATCH [Duragesic] 25 mcg TD Q72H #10 patch.td72 11/17/16 Acyclovir [Zovirax] 800 mg PO BID tablet 11/21/16 Furosemide [Lasix] 20 mg PO DAILY PRN #30 tablet 11/21/16 Lisinopril [Zestril] 10 mg PO DAILY #30 tablet 11/21/16 Metoprolol XL (24 HR) Succ [Toprol 25 mg PO DAILY #30 tab.er.24h 11/21/16 Xl] Pomalidomide [Pomalyst] 2 mg PO DAILY #21 capsule 11/25/16 Allergies Allergy/AdvReac Type Severity Reaction Status Date / Time clarithromycin [From Biaxin] AdvReac Nausea Verified 09/28/16 15:36 Penicillins [PCN] AdvReac Fainting Verified 09/28/16 15:36 Sulfa (Sulfonamide AdvReac Hives Verified 09/28/16 15:36 Antibiotics) Constitutional: Denies: fever, chills, weakness Cardiovascular: Denies: chest pain, palpitations, dyspnea on exertion Respiratory: Denies: cough, dyspnea, wheezes Gastrointestinal: Reports: abdominal pain, nausea. Denies: vomiting, diarrhea Integumentary: Denies: rash Neurological: Denies: headache, weakness, numbness Hematological/Lymphatic: Reports: easy bruising Abdominal Pain PMH - Past Medical History Medical history: Reports: cancer, GERD, other Male Surgical History: Reports: appendectomy, other Psychiatric history: Reports: no psych history - Social History Smoking status: Never smoker Alcohol use: Reports: none Drug use: Reports: none Physical Exam - General Limitations: no limitations General appearance: alert, in no apparent distress - Head Head exam: atraumatic, normocephalic - Eye Eye exam: Present: normal appearance - Chest Chest inspection: Present: normal inspection, symmetric chest wall rise - Respiratory Respiratory exam: Present: normal lung sounds bilaterally. Absent: respiratory distress, wheezes - Cardiovascular Cardiovascular exam: Present: regular rate, normal rhythm - Abdominal Exam Abdominal exam: Present: soft, tenderness, guarding. Absent: rigidity Abdominal tenderness: Present: LLQ - Neurological Exam Neurological exam: Present: alert, oriented X3 Course Course Narrative: Patient is a 76-year-old male presenting to the emergency department left lower quadrant pain. After history and physical, I determined to do a CT without contrast of the abdomen and draw labs. - Reevaluation(s) Reevaluation #1: CT of abdomen and has come back in and states small bowel obstruction. A call to the hospitalist has been done. Patient's pain is well controlled with the morphine and his nausea has improved with the Zofran. Reevaluation #2: I spoke with the patient, his , and his daughter who were at bedside about the admission. The patient feels that his anxiety is worsening. He normally takes 0.25 mg by mouth of Ativan at home. I will prescribe this to him now. Pain is now 4 out of 10. Time: 18:08 Reevaluation #3: I have spoken to the hospitalist Carrie Cheikh, she has agreed to admit him. Time: 18:27 Vital Signs Temperature 97.4 F L 12/02/16 16:05 Pulse Rate 71 12/02/16 16:05 Respiratory Rate 16 12/02/16 16:05 Blood Pressure 162/76 12/02/16 16:05 O2 Sat by Pulse Oximetry 96 12/02/16 16:05 Temperature 97.4 F L 12/02/16 16:05 Pulse Rate 76 12/02/16 17:49 Respiratory Rate 16 12/02/16 17:49 Blood Pressure 137/73 12/02/16 17:49 O2 Sat by Pulse Oximetry 96 12/02/16 17:49 Oxygen Delivery Oxygen Delivery Room Air Abdominal Pain - Lab Data Result diagrams: 12/02/16 17:00 12/02/16 17:00 Lab Results 12/02/16 12/02/16 Range/Units 17:00 17:00 WBC 2.2 L (4.3-11.1) K/mcL RBC 3.25 L (4.19-5.50) M/mcL Hgb 10.2 L (12.9-16.9) g/dL Hct 31.6 L (37.5-50.1) % MCV 97.2 (83.0-100.0) fL MCH 31.4 (28.0-33.3) pg MCHC 32.3 (31.6-35.5) g/dL RDW 22.1 H (11.5-14.5) % Plt Count 120 L (140-400) K/mcL MPV 10.6 (9.4-12.4) fL Immature Gran % 0.0 (0-4) % Seg Neutrophils % 39.7 % Lymphocytes % 46.0 % Monocytes % 10.3 % Eosinophils % 3.1 % Basophils % 0.9 % Neutrophils # 0.9 L (1.6-8.9) K/mcL Lymphocytes # 1.0 (0.6-4.6) K/mcL Monocytes # 0.2 (0.0-1.3) K/mcL Eosinophils # 0.1 (0.0-0.6) K/mcL Basophils # 0.0 (0.0-0.2) K/mcL Sodium 137 (136-145) mEq/L Potassium 3.4 L (3.5-4.5) mEq/L Chloride 103 (98-109) mEq/L Carbon Dioxide 31 H (19-29) mEq/L BUN 15 (8-26) mg/dL Creatinine 1.20 (0.72-1.25) mg/dL Est GFR ( Amer) > 60 (> 60) Est GFR (Non-Af Amer) 59 L (> 60) BUN/Creatinine Ratio 13 (6-26) Glucose 92 (70-99) mg/dL Calculated Osmolality 284 (280-300) Calcium 9.7 (8.6-10.8) mg/dL Total Bilirubin 1.3 H (0.2-1.2) mg/dL AST 16 (5-34) Units/L ALT 9 (0-55) Units/L Alkaline Phosphatase 60 (38-126) Units/L Serum Total Protein 8.7 H (6.0-8.3) g/dL Albumin 3.4 L (3.5-5.0) g/dL Globulin 5.3 H (2.4-3.5) g/dL Albumin/Globulin Ratio 0.6 L (1.1-2.2)
[2016-12-02] MEDS ORDERED: *HR* Morphine 2 MG/ML SYRINGE IVP ONE (16:36)
[2016-12-02 17:10] LABS: Basophils % 0.9 %; Eosinophils # 0.1 K/mcL (0.0-0.6); Eosinophils % 3.1 %; Hematocrit 31.6 % (37.5-50.1); Hemoglobin 10.2 g/dL (12.9-16.9); Mean Corpuscular HGB Conc 32.3 g/dL (31.6-35.5); Mean Corpuscular Hemoglobin 31.4 pg (28.0-33.3); Mean Corpuscular Volume 97.2 fL (83.0-100.0); Mean Platelet Volume 10.6 fL (9.4-12.4); Monocytes # 0.2 K/mcL (0.0-1.3); Monocytes % 10.3 %; Neutrophils # 0.9 K/mcL (1.6-8.9); Platelet Count 120 K/mcL (140-400); Red Blood Count 3.25 M/mcL (4.19-5.50); Red Cell Distribution Width 22.1 % (11.5-14.5); Segmented Neutrophils % 39.7 %
[2016-12-02 17:26] LABS: Alanine Aminotransferase 9 Units/L (0-55); Albumin 3.4 g/dL (3.5-5.0); Albumin/Globulin Ratio 0.6 (1.1-2.2); Alkaline Phosphatase 60 Units/L (38-126); Aspartate Amino Transferase 16 Units/L (5-34); BUN/Creatinine Ratio 13 (6-26); Bilirubin,Total 1.3 mg/dL (0.2-1.2); Blood Urea Nitrogen 15 mg/dL (8-26); Calcium 9.7 mg/dL (8.6-10.8); Carbon Dioxide 31 mEq/L (19-29); Chloride 103 mEq/L (98-109); Globulin 5.3 g/dL (2.4-3.5); Glucose 92 mg/dL (70-99); Osmolality,Calculated 284 (280-300); Potassium 3.4 mEq/L (3.5-4.5); Sodium 137 mEq/L (136-145); Total Protein 8.7 g/dL (6.0-8.3); eGFR For African Americans > 60 (> 60); eGFR For Non-African Americans 59 (> 60)
[2016-12-02] MEDS ORDERED: 0.9 % Sodium Chloride 1,000 ML IVC SCH (18:00)
[2016-12-02] MEDS ORDERED: ALPRAZolam 0.5 MG TABLET PO ONE (18:06)
[2016-12-02] MEDS ORDERED: Naloxone 0.4 MG/ML INJ IVP PRN (23:03)
--- NOTE | 2016-12-02 23:08 | Internal Med History&Physical ---
Date of Encounter: 12/02/16 Time of Encounter: 23:07 Assessment and Plan (1) Small bowel obstruction Current visit: Yes Status: Acute CT scan of abdomen and pelvis reported Fluid-filled dilation of small bowel in the mid to lower abdomen, suggesting small bowel obstruction. Keep the patient nothing by mouth. Request surgical consultation with Dr. Jimenez, for further advice. IV fluids for hydration (2) Pancytopenia Current visit: Yes Status: Chronic Possibly due to multiple myeloma/chemotherapy. Stable. Monitor (3) Multiple myeloma Current visit: Yes Status: Chronic Supportive care. Continue home medications Qualifiers: Multiple myeloma remission status: not in remission Qualified Code(s): C90.00 - Multiple myeloma not having achieved remission (4) Abdominal pain Current visit: Yes Status: Acute Possibly due to small bowel obstruction. Will need to exclude urinary tract infection - urinalysis/culture requested. Analgesia as needed. Qualifiers: Abdominal location: lower abdomen, unspecified Qualified Code(s): R10.30 - Lower abdominal pain, unspecified (5) Back pain Current visit: Yes Status: Chronic Possibly due to multiple myeloma / compression fractures. continue fentanyl patch Qualifiers: Back pain location: low back pain Chronicity: chronic Back pain laterality: midline Sciatica presence: without sciatica Qualified Code(s): M54.5 - Low back pain; G89.29 - Other chronic pain (6) DVT prophylaxis Current visit: Yes Status: Acute Heparin Internal Medicine - H&P: HPI Chief complaint: LLQ abdominal pain Admitted From: Emergency Dept Plans for Post Hospital Care: Home History of present illness: Mr. Craig is a 76 year old male with history of multiple myeloma, chronic back pain, remote history of appendectomy in 1965. He presents to emergency department with left lower quadrant pain going to RLQ, started this morning and gradually getting worse. He describes sore/hurt, 10/10 and improved with pain medications in the ER. He reports associated nausea but no vomiting. His last bowel movement was yesterday. He had no bowel movement or flatus since this morning. He denies fever, chills, chest pain, shortness of breath, dysuria, hematuria. He was evaluated in the emergency department and CT scan of the abdomen and pelvis reported "Fluid-filled dilation of small bowel in the mid to lower abdomen, suggesting small bowel obstruction.". He is kept NPO and started n IV fluids and admitted to the hospitalist service for further management. Past Med Surg Social Fam HX - Past Medical History Medical history: cancer, GERD, other Psychiatric history: no psych history - Past Surgical History Surgical History: appendectomy, other - Social History Smoking Status: Never smoker Smokeless Tobacco Status: No Alcohol use: none Drug use: none - Family History Grandfather Adopted: No Family Member Ethnicity: Non- Living Status: Hx Family Cancer: Yes Father Family Member Ethnicity: Non- Living Status: Age at : 88 Cause of : natural Hx Family Endocrine Disorder: Yes (diabetes) Mother Living Status: Age at : 85 Cause of : natural Hx Family Endocrine Disorder: Yes (Diabetes) Internal Medicine - H&P: Meds Multivit-Min/FA/Lycopen/Lutein [Centrum Silver Tablet] 1 tab PO DAILY 01/04/15 [ History] Aspirin [Adult Low Dose Aspirin EC] 81 mg PO DAILY #30 tablet. 02/01/15 [Rx] amLODIPine [Norvasc] 5 mg PO DAILY 07/16/16 [History] Omeprazole [PriLOSEC] 20 mg PO DAILY #90 cap 08/18/16 [Rx] Prochlorperazine Maleate [Compazine] 10 mg PO Q6HR PRN #30 tablet 10/21/16 [Rx] ALPRAZolam [Xanax 0.5 MG Tablet] 0.5 mg PO BID PRN #40 tablet 11/17/16 [Rx] FentaNYL PATCH [Duragesic] 25 mcg TD Q72H #10 patch.td72 11/17/16 [Rx] Acyclovir [Zovirax] 800 mg PO BID tablet 11/21/16 [Rx] Furosemide [Lasix] 20 mg PO DAILY PRN #30 tablet 11/21/16 [Rx] Lisinopril [Zestril] 10 mg PO DAILY #30 tablet 11/21/16 [Rx] Metoprolol XL (24 HR) Succ [Toprol Xl] 25 mg PO DAILY #30 tab.er.24h 11/21/16 [ Rx] Pomalidomide [Pomalyst] 2 mg PO DAILY #21 capsule 11/25/16 [Rx] Cyanocobalamin (Vitamin B-12) [Vitamin B-12] 100 mcg PO DAILY 12/02/16 [History] Allergies clarithromycin [From Biaxin] Adverse Reaction (Verified 09/28/16 15:36) Nausea Penicillins [PCN] Adverse Reaction (Verified 09/28/16 15:36) Fainting Sulfa (Sulfonamide Antibiotics) Adverse Reaction (Verified 09/28/16 15:36) Hives All Systems PM: A 10-system review of systems was performed and is negative for pertinent findings except as documented above in the HPI. - Constitutional Vitals: Temp Pulse Resp BP Pulse Ox 98.6 F 86 15 162/67 95 12/02/16 20:14 12/02/16 20:14 12/02/16 20:14 12/02/16 20:14 12/02/16 20:14 Exam: General: Not in acute distress at the time of my evaluation HEENT: Oral mucosa is moist. No conjunctival palor or scleral icterus Neck: No obvious neck swellings Lungs: Clear to auscultation Cardiac: Irregular rhythm. No significant murmurs Abdomen: Tenderness in bilateral iliac fossae Genitourinary: No fontenot catheter Neurological: Alert and oriented. No gross localizing deficits Psych: Not aggressive or agitated Extremities: no significant leg edema Skin: No generalized rash Internal Med - H&P Results - Labs CBC & Chem 7: 12/02/16 17:00 12/02/16 17:00 - Impressions ITS Impressions Abdomen/Pelvis CT 12/02/16 16:18 IMPRESSION: 1. Fluid-filled dilation of small bowel in the mid to lower abdomen, suggesting small bowel obstruction. 2. Multiple lytic lesions within the lumbar spine, with stable appearing compression fractures, compatible with the patient's history of multiple myeloma. D/ / Damian Carter MD / Damian Carter MD Interpreting Provider: Damian Carter MD
[2016-12-02] MEDS: 0.9 % Sodium Chloride w KCl 20 MEQ/1,000 ML MLS IVC SCH (23:47)
[2016-12-03] MEDS ORDERED: ALPRAZolam 0.5 MG TABLET PO PRN (00:39)
[2016-12-03] MEDS ORDERED: Acetaminophen 325 MG TABLET PO PRN (00:54)
[2016-12-03] MEDS ORDERED: *HR* Morphine 2 MG/ML SYRINGE IVP PRN (00:54)
[2016-12-03] MEDS: *HR* Promethazine 25 MG/ML VIAL IVP PRN ×3 (06:04→20:30)
[2016-12-03] MEDS: Pantoprazole 40 MG VIAL IVP SCH (06:04)
[2016-12-03 06:36] LABS: Basophils % 0.6 %; Eosinophils % 2.4 %; Mean Corpuscular Volume 98.1 fL (83.0-100.0)
[2016-12-03 06:38] LABS: Hematocrit 30.3 % (37.5-50.1); Lymphocytes # 0.6 K/mcL (0.6-4.6); Lymphocytes % 34.5 %; Mean Corpuscular Hemoglobin 32.4 pg (28.0-33.3); Mean Platelet Volume 10.7 fL (9.4-12.4); Monocytes # 0.2 K/mcL (0.0-1.3); Monocytes % 12.1 %; Neutrophils # 0.9 K/mcL (1.6-8.9); Platelet Count 117 K/mcL (140-400); Red Blood Count 3.09 M/mcL (4.19-5.50); Red Cell Distribution Width 22.2 % (11.5-14.5); Segmented Neutrophils % 50.4 %
[2016-12-03 07:08] LABS: BUN/Creatinine Ratio 12 (6-26); Blood Urea Nitrogen 12 mg/dL (8-26); Calcium 8.8 mg/dL (8.6-10.8); Carbon Dioxide 28 mEq/L (19-29); Chloride 105 mEq/L (98-109); Glucose 96 mg/dL (70-99); Magnesium 1.6 mg/dL (1.6-2.6); Osmolality,Calculated 282 (280-300); Potassium 3.6 mEq/L (3.5-4.5); Sodium 136 mEq/L (136-145); eGFR For African Americans > 60 (> 60); eGFR For Non-African Americans > 60 (> 60)
[2016-12-03 07:44] LABS: Platelet Estimate Slight Decrease (Normal)
[2016-12-03] MEDS: Aspirin Enteric Coated 81 MG Tablet PO SCH (08:18)
[2016-12-03] MEDS: amLODIPine 5 MG TABLET PO SCH (08:18)
[2016-12-03] MEDS: Metoprolol XL (24 HR) Succ 25 MG TAB.ER.24H PO SCH (08:19)
--- NOTE | 2016-12-03 09:38 | Internal Med Progress Note ---
Date of Encounter: 12/03/16 Time of Encounter: 09:36 - Assessment and plan (1) Abdominal pain Current Visit: Yes Status: Acute Assessment and plan: due to SBO Improving Qualifiers: Abdominal location: lower abdomen, unspecified Qualified Code(s): R10.30 - Lower abdominal pain, unspecified (2) Small bowel obstruction Current Visit: Yes Status: Acute Assessment and plan: His SBO seems to be mostly due to his chronic usage of narcotics at this point will cont symptomatic and supportive care Surgery consulted will do f/u Obstruction series and followed by small bowel follow through if SBO clears will start him on clear liquid diet today cont NPO for now cont gentle IV hdyration no need of NG tube now (3) Acute kidney injury Current Visit: No Status: Acute Assessment and plan: due to dehydration resolved cont gentle iV hydration (4) Multiple myeloma Current Visit: Yes Status: Chronic Assessment and plan: following Heme Onc currently under active chemo therapy received last chemo on Wednesday need to f/u with Heme Onc as an out pt Qualifiers: Multiple myeloma remission status: not in remission Qualified Code(s): C90.00 - Multiple myeloma not having achieved remission (5) Pancytopenia Current Visit: No Status: Chronic Assessment and plan: due to multiplemyeloma cont close monitoring no need of transfusions at this point (6) DVT prophylaxis Current Visit: Yes Status: Acute Assessment and plan: on SQ heparin - Subjective Interval history: Mr. Craig is a 76 year old male with history of multiple myeloma, chronic back pain, remote history of appendectomy in 1965. He presents to emergency department with left lower quadrant pain going to RLQ, started y/d and gradually getting worse. He reports associated nausea but no vomiting. His last bowel movement was yesterday. He was evaluated in the emergency department and CT scan of the abdomen and pelvis reported "Fluid-filled dilation of small bowel in the mid to lower abdomen, suggesting small bowel obstruction." He had no bowel movement or flatus since this morning.However his abdominal pain is better today. He denies fever, chills, chest pain, shortness of breath, dysuria , hematuria. - Constitutional Vitals: Temp Pulse Resp BP Pulse Ox 97.6 F 75 18 121/71 97 12/03/16 06:31 12/03/16 06:31 12/03/16 06:31 12/03/16 06:31 12/03/16 08:24 General appearance: Present: A&O X 3, pleasant, no acute distress, answers questions appropriately - Respiratory Respiratory exam: Present: CTAB. Absent: accessory muscle use, rales, rhonchi, wheezes - Cardiovascular Cardiovascular exam: Present: RRR, +S1, +S2. Absent: diastolic murmur, gallop, rubs, systolic murmur - GI/Abdominal GI/Abdominal exam: Present: hypoactive bowel sounds, soft, tenderness (,ild tenderness in lower abdomen more on LLQ). Absent: guarding, mass, rebound, rigid - Extremities Exam Extremities exam: Absent: calf tenderness, pedal edema - Psychiatric Psychiatric exam: Present: normal affect, normal mood Internal Medicine: Result - Labs CBC & Chem 7: 12/03/16 05:22 12/03/16 05:22 Labs: Short CBC 12/03/16 Range/Units 05:22 WBC 1.7 L (4.3-11.1) K/mcL Hgb 10.0 L (12.9-16.9) g/dL Hct 30.3 L (37.5-50.1) % Plt Count 117 L (140-400) K/mcL Neutrophils # 0.9 L (1.6-8.9) K/mcL BMP 12/03/16 05:22 Sodium 136 Potassium 3.6 Chloride 105 Carbon Dioxide 28 BUN 12 Creatinine 1.00 Glucose 96 Calcium 8.8 Consult Discharge Plan - Plan Referrals: Sal Tmolin MD [Primary Care Provider] -
[2016-12-03 11:14] LABS: Bilirubin,Urine Negative (Negative); Blood,Urine Negative (Negative); Clarity,Urine Clear (Clear); Color,Urine Yellow (Yellow); Glucose,Urine (UA) Normal (Normal); Ketones,Urine Negative (Negative); Leukocyte Esterase,Urine Negative (Negative); Nitrite,Urine Negative (Negative); Protein,Urine Trace mg/dL (Neg-Trace); Specific Gravity,Urine 1.012 (1.010-1.025); Urobilinogen,Urine Normal (Normal)
[2016-12-03 11:15] LABS: Bacteria,Urine None Seen per hpf (None-Few); Hyaline Casts,Urine None Seen per lpf (None-Few); RBC,Urine 0-3 per hpf (0-3); Squamous Epithelial Cell,Urine Few per lpf (None-Few); WBC,Urine 0-3 per hpf (0-3)
[2016-12-03] MEDS: 0.9 % Sodium Chloride w KCl 20 MEQ/1,000 ML MLS IVC SCH (12:34)
[2016-12-03] MEDS: MetroNIDAZOLE 500 MG/100 ML 500 MG/100 ML BAG IVPB SCH (18:40)
--- NOTE | 2016-12-03 18:50 | General Surgery Consult Note ---
Date of Encounter: 12/03/16 Time of Encounter: 18:30 History of Present Illness Reason for consult: abdominal pain (abnormal CT) Requesting physician: Mirtha Dobbins History of present illness: 76-year-old male with history of multiple myeloma admitted after presenting to the emergency department with right lower quadrant abdominal pain with no passage of flatus or stool for over 24 hours. The patient dictates that he is "regular like clockwork" moving his bowels virtually every a.m. He did not move his bowels yesterday a.m. and with progressive pain presented to the emergency department for further evaluation and treatment. He also notes no passage of flatus. Patient denies any fevers, chills, rigors. He has been nauseated but denies any emesis. PMH: multiple myeloma diagnosed approx 6 years ago, pancytopenia as result of treatment of the multiple myeloma. Chronic back pain, anxiety, cardiomyopathy with LVEF 30% (considered likely due to carfilzomib) Surgical history: appendectomy 1965; lumbar laminectomy Allergies: Clarithromycin, penicillin, sulfa Medications: Centrum Silver 1 tablet by mouth daily Aspirin 81 mg by mouth daily Amlodipine 5 mg by mouth daily Omeprazole 20 mg by mouth daily Prochlorperazine 10 mg by mouth every 6 hours as needed for nausea Alprazolam 0.5 mg by mouth twice a day when necessary for anxiety Fentanyl patch 25 g apply topically every 72 hours Acyclovir 800 mg by mouth twice a day Furosemide 20 mg by mouth daily as needed Lisinopril 10 mg by mouth daily Metoprolol XL succinate 25 mg by mouth daily Pomalidamide 2 mg by mouth daily cyanocobalamin (vitamin B12; 100 g by mouth daily Social history: Patient is , lives with his spouse; he smoked in his youth and for a brief period of time in his 40s - he has not consumed any tobacco in the last 30 years; he also admits alcohol use in the remote past, no alcohol consumption in the last 15 years. He denies any illicit drug use. On physical examination: Thin, age-appropriate male resting comfortably in his hospital bed. He experienced emesis following administration of oral contrast for a small bowel follow-through. The small bowel follow-through is in progress - oral contrast is progressing slowly through the small bowel. Skin is warm, no obvious jaundice The patient is afebrile, 98.4; pulse 82, respirations 18, blood pressure 136/ 66; SPO2 on room air 96-98% Lungs: Clear, no obvious abdominal pain with deep inspiration Cardiac: Rate regular no appreciable murmurs Abdomen: Soft with minimal left lower quadrant tenderness. No discernible masses. No rebound. Bowel sounds present. Patient indicates he has not had a bowel movement or passed any flatus since his admission There is a well-healed transverse scar in the right lower quadrant consistent with a remote history of open appendectomy. There were no detected fascial defects Extremities: No obvious clubbing, cyanosis, edema CT was personally reviewed with [place] [facility] as well as the preliminary small bowel follow-through images. CT findings include: Small right pleural effusion with adjacent airspace disease ; minimal patchy airspace disease in the left lung; bilateral renal cysts; fluid -filled dilation of the small bowel in the mid to lower abdomen suggestive of small bowel obstruction, however, enteritis may also present with these findings; Stool present in the cecum and ascending colon - the more distal colon is decompressed; multiple lytic lesions within the lumbar spine with stable appearing compression fractures. Laboratories: White count markedly depressed at 1.7; hemoglobin 10.0 with hematocrit 30.3; platelet count 117,000 - all consistent with pancytopenia Electrolytes, BUN, and creatinine within normal limits. Total bilirubin 1.3 , AST 16, ALT 9, alkaline phosphatase 60 Impression: Left lower quadrant abdominal pain with dilated fluid-filled loops of small bowel. Findings consistent with possible small bowel obstruction versus enteritis. Patient with significant leukopenia and pancytopenia related to his history of multiple myeloma Recommendations: Continue small bowel follow-through using Gastrografin Allow is chips sparingly Recommend broad-spectrum antibiotics until the patient's clinical picture is clarified Consider consultation with Cardiology and Hematology/Oncology Past Med Surg Social Fam HX - Past Medical History Medical history: cancer, GERD, other Psychiatric history: no psych history - Past Surgical History Surgical History: appendectomy, other - Social History Smoking Status: Never smoker Smokeless Tobacco Status: No Alcohol use: none Drug use: none - Family History Grandfather Adopted: No Family Member Ethnicity: Non- Living Status: Hx Family Cancer: Yes Father Family Member Ethnicity: Non- Living Status: Age at : 88 Cause of : natural Hx Family Endocrine Disorder: Yes (diabetes) Mother Living Status: Age at : 85 Cause of : natural Hx Family Endocrine Disorder: Yes (Diabetes) Medications and Allergies Multivit-Min/FA/Lycopen/Lutein [Centrum Silver Tablet] 1 tab PO DAILY 01/04/15 [ History] Aspirin [Adult Low Dose Aspirin EC] 81 mg PO DAILY #30 tablet. 02/01/15 [Rx] amLODIPine [Norvasc] 5 mg PO DAILY 07/16/16 [History] Omeprazole [PriLOSEC] 20 mg PO DAILY #90 cap 08/18/16 [Rx] Prochlorperazine Maleate [Compazine] 10 mg PO Q6HR PRN #30 tablet 10/21/16 [Rx] ALPRAZolam [Xanax 0.5 MG Tablet] 0.5 mg PO BID PRN #40 tablet 11/17/16 [Rx] FentaNYL PATCH [Duragesic] 25 mcg TD Q72H #10 patch.td72 11/17/16 [Rx] Acyclovir [Zovirax] 800 mg PO BID tablet 11/21/16 [Rx] Furosemide [Lasix] 20 mg PO DAILY PRN #30 tablet 11/21/16 [Rx] Lisinopril [Zestril] 10 mg PO DAILY #30 tablet 11/21/16 [Rx] Metoprolol XL (24 HR) Succ [Toprol Xl] 25 mg PO DAILY #30 tab.er.24h 11/21/16 [ Rx] Pomalidomide [Pomalyst] 2 mg PO DAILY #21 capsule 11/25/16 [Rx] Cyanocobalamin (Vitamin B-12) [Vitamin B-12] 100 mcg PO DAILY 12/02/16 [History] Allergies clarithromycin [From Biaxin] Adverse Reaction (Verified 09/28/16 15:36) Nausea Penicillins [PCN] Adverse Reaction (Verified 09/28/16 15:36) Fainting Sulfa (Sulfonamide Antibiotics) Adverse Reaction (Verified 09/28/16 15:36) Hives Review of Systems All systems PM: A 10-system review of systems was performed and is negative for pertinent findings except as documented above in the HPI. General Surgery Exam Initial Vital Signs Temp Pulse Resp BP Pulse Ox 97.4 F L 71 16 162/76 96 12/02/16 16:05 12/02/16 16:05 12/02/16 16:05 12/02/16 16:05 12/02/16 16:05 Exam Initial Vital Signs Temp Pulse Resp BP Pulse Ox 97.4 F L 71 16 162/76 96 12/02/16 16:05 12/02/16 16:05 12/02/16 16:05 12/02/16 16:05 12/02/16 16:05 Results - Labs 12/03/16 05:22 12/03/16 05:22 Abnormal lab results WBC 1.7 K/mcL (4.3-11.1) L 12/03/16 05:22 RBC 3.09 M/mcL (4.19-5.50) L 12/03/16 05:22 Hgb 10.0 g/dL (12.9-16.9) L 12/03/16 05:22 Hct 30.3 % (37.5-50.1) L 12/03/16 05:22 RDW 22.2 % (11.5-14.5) H 12/03/16 05:22 Plt Count 117 K/mcL (140-400) L 12/03/16 05:22 Neutrophils # 0.9 K/mcL (1.6-8.9) L 12/03/16 05:22 Platelet Estimate Slight Decrease (Normal) L 12/03/16 05:22 POC Glucose 99 (58-89) H 12/03/16 16:49 Total Bilirubin 1.3 mg/dL (0.2-1.2) H 12/02/16 17:00 Serum Total Protein 8.7 g/dL (6.0-8.3) H 12/02/16 17:00 Albumin 3.4 g/dL (3.5-5.0) L 12/02/16 17:00 Globulin 5.3 g/dL (2.4-3.5) H 12/02/16 17:00 Albumin/Globulin Ratio 0.6 (1.1-2.2) L 12/02/16 17:00 Diabetes panel 12/03/16 Range/Units 05:22 Sodium 136 (136-145) mEq/L Potassium 3.6 (3.5-4.5) mEq/L Chloride 105 (98-109) mEq/L Carbon Dioxide 28 (19-29) mEq/L BUN 12 (8-26) mg/dL Creatinine 1.00 (0.72-1.25) mg/dL Glucose 96 (70-99) mg/dL Calcium 8.8 (8.6-10.8) mg/dL Calcium panel 12/03/16 Range/Units 05:22 Calcium 8.8 (8.6-10.8) mg/dL Pituitary panel 12/03/16 Range/Units 05:22 Sodium 136 (136-145) mEq/L Potassium 3.6 (3.5-4.5) mEq/L Chloride 105 (98-109) mEq/L Carbon Dioxide 28 (19-29) mEq/L BUN 12 (8-26) mg/dL Creatinine 1.00 (0.72-1.25) mg/dL Glucose 96 (70-99) mg/dL Calcium 8.8 (8.6-10.8) mg/dL Adrenal panel 12/03/16 Range/Units 05:22 Sodium 136 (136-145) mEq/L Potassium 3.6 (3.5-4.5) mEq/L Chloride 105 (98-109) mEq/L Carbon Dioxide 28 (19-29) mEq/L BUN 12 (8-26) mg/dL Creatinine 1.00 (0.72-1.25) mg/dL Glucose 96 (70-99) mg/dL Calcium 8.8 (8.6-10.8) mg/dL All other labs normal. Consult Discharge Plan - Plan Referrals: Sal Tomlin MD [Primary Care Provider] -
[2016-12-03] MEDS: *HR* HYDROmorphone (PF) 1 MG/ML SYRINGE IVP PRN (20:19)
[2016-12-04] MEDS: Ondansetron 4 MG/2 ML VIAL IVP PRN ×2 (00:54→11:27)
[2016-12-04] MEDS: MetroNIDAZOLE 500 MG/100 ML 500 MG/100 ML BAG IVPB SCH ×3 (02:40→18:34)
[2016-12-04] MEDS: *HR* HYDROmorphone (PF) 1 MG/ML SYRINGE IVP PRN (03:50)
[2016-12-04] MEDS: *HR* Promethazine 25 MG/ML VIAL IVP PRN ×5 (03:51→23:51)
[2016-12-04] MEDS: Pantoprazole 40 MG VIAL IVP SCH (05:52)
[2016-12-04] MEDS: Aspirin Enteric Coated 81 MG Tablet PO SCH (08:45)
[2016-12-04] MEDS: amLODIPine 5 MG TABLET PO SCH (08:45)
[2016-12-04] MEDS: Metoprolol XL (24 HR) Succ 25 MG TAB.ER.24H PO SCH (08:45)
[2016-12-04] MEDS ORDERED: *HR* FentaNYL PATCH 25 MCG PATCH TD SCH (09:00)
[2016-12-04 09:04] LABS: Eosinophils % 0.5 %; Hematocrit 31.3 % (37.5-50.1); Hemoglobin 10.3 g/dL (12.9-16.9); Immature Platelets 4.3 % (1.1-6.1); Lymphocytes # 0.6 K/mcL (0.6-4.6); Lymphocytes % 30.5 %; Mean Corpuscular HGB Conc 32.9 g/dL (31.6-35.5); Mean Corpuscular Hemoglobin 32.5 pg (28.0-33.3); Mean Corpuscular Volume 98.7 fL (83.0-100.0); Monocytes # 0.2 K/mcL (0.0-1.3); Monocytes % 10.2 %; Neutrophils # 1.2 K/mcL (1.6-8.9); Platelet Count 137 K/mcL (140-400); Red Blood Count 3.17 M/mcL (4.19-5.50); Red Cell Distribution Width 22.3 % (11.5-14.5); Segmented Neutrophils % 58.8 %
[2016-12-04 09:18] LABS: Alanine Aminotransferase 8 Units/L (0-55); Albumin/Globulin Ratio 0.6 (1.1-2.2); Alkaline Phosphatase 54 Units/L (38-126); Aspartate Amino Transferase 16 Units/L (5-34); BUN/Creatinine Ratio 15 (6-26); Bilirubin,Total 1.3 mg/dL (0.2-1.2); Blood Urea Nitrogen 20 mg/dL (8-26); Calcium 9.4 mg/dL (8.6-10.8); Carbon Dioxide 25 mEq/L (19-29); Chloride 105 mEq/L (98-109); Globulin 5.3 g/dL (2.4-3.5); Glucose 116 mg/dL (70-99); Magnesium 1.6 mg/dL (1.6-2.6); Osmolality,Calculated 284 (280-300); Potassium 4.3 mEq/L (3.5-4.5); Sodium 135 mEq/L (136-145); Total Protein 8.3 g/dL (6.0-8.3); eGFR For African Americans > 60 (> 60); eGFR For Non-African Americans 54 (> 60)
--- NOTE | 2016-12-04 10:21 | Internal Med Progress Note ---
Date of Encounter: 12/04/16 Time of Encounter: 08:20 - Assessment and plan (1) Small bowel obstruction Current Visit: Yes Status: Acute Assessment and plan: His SBO seems to be mostly due to his chronic usage of narcotics and possibly due to his multiple myeloma too at this point will cont symptomatic and supportive car no need of NG tube yet Surgery on board started on empirical abx Rob and Jamar Reviewed small bowel follow through from y/d - which still showing SBO Repeat Obstruction series today cont NPO for now cont gentle IV hydration will consider of starting him on stool softeners (2) Abdominal pain Current Visit: Yes Status: Acute Assessment and plan: due to SBO Improving Qualifiers: Abdominal location: lower abdomen, unspecified Qualified Code(s): R10.30 - Lower abdominal pain, unspecified (3) Acute kidney injury Current Visit: No Status: Acute Assessment and plan: due to dehydration resolved cont gentle iV hydration (4) Multiple myeloma Current Visit: Yes Status: Chronic Assessment and plan: following Heme Onc currently under active chemo therapy received last chemo on Wednesday need to f/u with Heme Onc as an out pt will consult Heme Onc Qualifiers: Multiple myeloma remission status: not in remission Qualified Code(s): C90.00 - Multiple myeloma not having achieved remission (5) Pancytopenia Current Visit: No Status: Chronic Assessment and plan: due to multiplemyeloma cont close monitoring no need of transfusions at this point (6) DVT prophylaxis Current Visit: Yes Status: Acute Assessment and plan: on SCD's (7) Chronic pain due to neoplasm Current Visit: Yes Status: Acute Assessment and plan: cont home regimen of Fentanyl - Subjective Interval history: Mr. Craig is a 76 year old male with history of multiple myeloma, chronic back pain, remote history of appendectomy in 1965. He presents to emergency department with left lower quadrant pain going to RLQ, started y/d and gradually getting worse. He reports associated nausea but no vomiting. His last bowel movement was yesterday. He was evaluated in the emergency department and CT scan of the abdomen and pelvis reported "Fluid-filled dilation of small bowel in the mid to lower abdomen, suggesting small bowel obstruction." He had no bowel movement or flatus since y/d. Still having nausea and vomiting, had 3- 4 episodes of vomiting last night. However his abdominal pain is better today. He denies fever, chills, chest pain, shortness of breath, dysuria, hematuria. - Constitutional Vitals: Temp Pulse Resp BP Pulse Ox 98.2 F 94 18 108/60 92 12/04/16 07:30 12/04/16 07:30 12/04/16 07:30 12/04/16 07:30 12/04/16 08:52 General appearance: Present: A&O X 3, pleasant, no acute distress, answers questions appropriately - Respiratory Respiratory exam: Present: CTAB. Absent: accessory muscle use, rales, rhonchi, wheezes - Cardiovascular Cardiovascular exam: Present: RRR, +S1, +S2. Absent: diastolic murmur, gallop, rubs, systolic murmur - GI/Abdominal GI/Abdominal exam: Present: hypoactive bowel sounds, soft. Absent: distended, guarding, rebound, rigid, tenderness - Psychiatric Psychiatric exam: Present: normal affect, normal mood Internal Medicine: Result - Labs CBC & Chem 7: 12/04/16 08:58 12/04/16 08:58 Labs: Short CBC 12/04/16 Range/Units 08:58 WBC 2.0 L (4.3-11.1) K/mcL Hgb 10.3 L (12.9-16.9) g/dL Hct 31.3 L (37.5-50.1) % Plt Count 137 L (140-400) K/mcL Neutrophils # 1.2 L (1.6-8.9) K/mcL BMP 12/04/16 08:58 Sodium 135 L Potassium 4.3 Chloride 105 Carbon Dioxide 25 BUN 20 Creatinine 1.30 H Glucose 116 H Calcium 9.4 Liver Function 12/04/16 Range/Units 08:58 Total Bilirubin 1.3 H (0.2-1.2) mg/dL AST 16 (5-34) Units/L ALT 8 (0-55) Units/L Alkaline Phosphatase 54 (38-126) Units/L Albumin 3.0 L (3.5-5.0) g/dL Urine 12/03/16 Range/Units 11:00 Urine Color Yellow (Yellow) Urine Clarity Clear (Clear) Urine pH 7.0 (5.0-8.0) pH Units Ur Specific [place] 1.012 (1.010-1.025) Urine Protein Trace (Neg-Trace) mg/dL Urine Glucose (UA) Normal (Normal) mg/dL - Impressions Impressions Small Bowel X-Ray 12/03/16 12:31 IMPRESSION: Incomplete progression of contrast material through the small bowel over the course of the exam with the exam carried out to 7 hours. Multiple distended loops of small bowel present without other abnormality identified or discrete transition point identified. Findings are compatible with small bowel obstruction. Continued follow-up suggested. D/ / 12/04/2016 09:55:38 Conrad Whittaker MD / nicky Interpreting Provider: Conrad Whittaker MD Consult Discharge Plan - Plan Referrals: Sal Tomlin MD [Primary Care Provider] -
[2016-12-04] MEDS ORDERED: 0.9 % Sodium Chloride 500 ML IVC ONE (10:58)
--- NOTE | 2016-12-04 11:08 | General Surgery Progress Note ---
Date of Encounter: 12/04/16 Time of Encounter: 10:45 Subjective Patient reports: still having pain, nausea Narrative: General Surgery: patient continues to c/o nausea without emesis, LLQ abdominal pain Afebrile, currently 98.2; pulse 94, respirations 18, blood pressure 108/60 Lungs: Clear, no abdominal pain with deep inspiration Abdomen: Slightly distended, soft with tenderness left lower quadrant. No discernible masses. No rebound. Active bowel sounds. Small bowel follow-through reviewed with [facility] - findings include persistent multiple, distended, air filled loops of small bowel. Contrast appears to have progressed into the proximal ileum but has yet to reach the colon. No identified transition zone. No definite mucosal abnormalities or strictures. Laboratories: White count 2.0; hemoglobin stable at 10.3 with hematocrit 31.3; platelet count 137,000. Electrolytes are notable for hyponatremia; BUN 20, creatinine has increased to 1.30; eGFR is decreased to 54 Impression: Abdominal pain and nausea later to possible small bowel obstruction versus enteritis Incomplete small bowel follow-through with oral contrast reaching only the distal jejunum or proximal ileum. Patient's now indicates that the patient's prior appendectomy was complicated by an abscess requiring reoperation and drainage of a pelvic abscess. This may have resulted in significant adhesions in the right lower quadrant causing the current symptoms and radiologic findings. Plan: KUB at 12 N fluid bolus to address increased Cr with diminished eGFR continue ATB for pancytopenia Objective Vital Signs - Last 8 Hours Temp Pulse Resp BP Pulse Ox 12/04/16 08:52 92 12/04/16 07:30 98.2 F 94 18 108/60 92 12/04/16 04:44 98.5 F 95 18 115/70 95 Intake and Output 12/03/16 12/04/16 12/04/16 23:59 07:59 15:59 Intake Total 301 / 301 300 / 300 0 / 0 Output Total 100 / 100 600 / 600 Balance 201 / 201 -300 / -300 0 / 0 Intake: IV Fluids 300 / 300 300 / 300 Cipro Premix 400 MG/200 200 / 200 200 / 200 ML 400 mg In 200 ml @ 200 mls/hr IVPB Q12H [facility] Rx# :[id number] Flagyl Premix 500 MG/100 100 / 100 100 / 100 ML 500 mg In 100 ml @ 100 mls/hr IVPB Q8H [facility] Rx#: [id number] Oral 1 / 0 / 0 Output: Urine 0 / 0 100 / 100 Emesis 100 / 100 500 / 500 Other: Meal npo NPO Percent of Meal Consumed 0% 0% Weight 58 kg Blood Glucose* 96 99 Patient Weight 12/04/16 23:59 Weight 58 kg - Labs 12/04/16 08:58 12/04/16 08:58 Diabetes panel 12/04/16 Range/Units 08:58 Sodium 135 L (136-145) mEq/L Potassium 4.3 (3.5-4.5) mEq/L Chloride 105 (98-109) mEq/L Carbon Dioxide 25 (19-29) mEq/L BUN 20 (8-26) mg/dL Creatinine 1.30 H (0.72-1.25) mg/dL Glucose 116 H (70-99) mg/dL Calcium 9.4 (8.6-10.8) mg/dL AST 16 (5-34) Units/L ALT 8 (0-55) Units/L Alkaline Phosphatase 54 (38-126) Units/L Albumin 3.0 L (3.5-5.0) g/dL Calcium panel 12/04/16 Range/Units 08:58 Calcium 9.4 (8.6-10.8) mg/dL Albumin 3.0 L (3.5-5.0) g/dL Pituitary panel 12/04/16 Range/Units 08:58 Sodium 135 L (136-145) mEq/L Potassium 4.3 (3.5-4.5) mEq/L Chloride 105 (98-109) mEq/L Carbon Dioxide 25 (19-29) mEq/L BUN 20 (8-26) mg/dL Creatinine 1.30 H (0.72-1.25) mg/dL Glucose 116 H (70-99) mg/dL Calcium 9.4 (8.6-10.8) mg/dL Adrenal panel 12/04/16 Range/Units 08:58 Sodium 135 L (136-145) mEq/L Potassium 4.3 (3.5-4.5) mEq/L Chloride 105 (98-109) mEq/L Carbon Dioxide 25 (19-29) mEq/L BUN 20 (8-26) mg/dL Creatinine 1.30 H (0.72-1.25) mg/dL Glucose 116 H (70-99) mg/dL Calcium 9.4 (8.6-10.8) mg/dL Total Bilirubin 1.3 H (0.2-1.2) mg/dL AST 16 (5-34) Units/L ALT 8 (0-55) Units/L Alkaline Phosphatase 54 (38-126) Units/L Albumin 3.0 L (3.5-5.0) g/dL Consult Discharge Plan - Plan Referrals: Sal Tomlin MD [Primary Care Provider] -
[2016-12-04] MEDS: D5% in 0.9% NACL 1,000 ML IVC SCH (11:17)
[2016-12-04] MEDS: Sennosides/Docusate Sodium TABLET PO SCH ×2 (11:21→20:03)
[2016-12-04] MEDS ORDERED: Ondansetron 4 MG/2 ML VIAL IVP PRN (12:53)
--- NOTE | 2016-12-04 15:12 | Cardiology Consult Note ---
Date of Encounter: 12/04/16 Time of Encounter: 14:30 Assessment and Plan (1) Small bowel obstruction Current Visit: Yes Status: Acute Per cardiology: -Small bowel obstruction noted. -Being follow by surgery and primary team. -Possible need for surgery (2) Cardiomyopathy Current Visit: No Status: Chronic Per cardiology: -Recent admission October 2016 with CHF. -New cardiomyopathy noted at that time. -Echo 11/19/16 with LVEF 30%, global systolic dysfunction with regional variations, RV midly dilated with normal function, mild AR, moderate MR, moderate TR, severe pulmonary hypertension. Previous echo 06/2016 with LVEF 55%. -Non-excercise nuclear stress 11/21/16 with LVEF 31%, medium sized, mild to moderate intensity, primarily fixed basal to mid inferior/inferolateral defect. Prior infarct could not be excluded. Perfusion imaging was negative for ischemia. -Patient denies chest pain and is euvolemic on exam. -Patient denies previous LHC. -NO ECG to review. -Per discussion with , recommend LHC for new cardiomyopathy. Qualifiers: Cardiomyopathy type: unspecified Qualified Code(s): I42.9 - Cardiomyopathy , unspecified (3) Pre-operative cardiovascular examination Current Visit: Yes Status: Acute Per cardiology: -Pre-op exam for possible surgery due to small bowel obstruction. -Echo as above. NO need to repeat echocardiogram at this time. -NO ECG to review. Will order. -Per discussion with , patient will need LHC prior to surgery due to new cardiomyopathy. -I discussed with patient and at length, at this time they would like to discuss amongst themselves. Patient will be evaluated by and they will make a decision regarding LHC at that time. Discussion w patient/family: The assessment and plan as outlined above was discussed with the patient and/or family members who expressed understanding and agreement. All questions were answered. Thank you for involving us in the care of your patient. Please call with any questions. Discussed and reviewed with . History of Present Illness Consult date: 12/04/16 Requesting physician: Rubin Conrad Consult reason: pre-op clearance Chief complaint: abdominal pain History of present illness: Mr. Craig is a 76 year old male with a relevant past medical history of multiple myeloma s/p chemotherapy, and previous tobacco abuse. Patient presented to [facility] with complaints of abdominal pain. Patient has small bowel obstruction and surgery has been following. Cardiology was asked to see patient for cardiac clearance. Patient had recent admission with CHF and new cardiomyopathy. Patient denies chest pain, increased shortness of breath. Patient denies peripheral edema. Past Med Surg Social Fam HX - Past Medical History Attestation: Yes The following information was validated with the patient. Source: patient, old records reviewed, obtained from family Medical history: cancer, cardiomyopathy, GERD, other Psychiatric history: no psych history - Past Surgical History Surgical History: appendectomy, other - Social History Smoking Status: Never smoker Smokeless Tobacco Status: No Alcohol use: none Drug use: none - Family History Grandfather Adopted: No Family Member Ethnicity: Non- Living Status: Hx Family Cancer: Yes Father Family Member Ethnicity: Non- Living Status: Age at : 88 Cause of : natural Hx Family Endocrine Disorder: Yes (diabetes) Mother Living Status: Age at : 85 Cause of : natural Hx Family Endocrine Disorder: Yes (Diabetes) Medications and Allergies Multivit-Min/FA/Lycopen/Lutein [Centrum Silver Tablet] 1 tab PO DAILY 01/04/15 [ History] Aspirin [Adult Low Dose Aspirin EC] 81 mg PO DAILY #30 tablet. 02/01/15 [Rx] amLODIPine [Norvasc] 5 mg PO DAILY 07/16/16 [History] Omeprazole [PriLOSEC] 20 mg PO DAILY #90 cap 08/18/16 [Rx] Prochlorperazine Maleate [Compazine] 10 mg PO Q6HR PRN #30 tablet 10/21/16 [Rx] ALPRAZolam [Xanax 0.5 MG Tablet] 0.5 mg PO BID PRN #40 tablet 11/17/16 [Rx] FentaNYL PATCH [Duragesic] 25 mcg TD Q72H #10 patch.td72 11/17/16 [Rx] Acyclovir [Zovirax] 800 mg PO BID tablet 11/21/16 [Rx] Furosemide [Lasix] 20 mg PO DAILY PRN #30 tablet 11/21/16 [Rx] Lisinopril [Zestril] 10 mg PO DAILY #30 tablet 11/21/16 [Rx] Metoprolol XL (24 HR) Succ [Toprol Xl] 25 mg PO DAILY #30 tab.er.24h 11/21/16 [ Rx] Pomalidomide [Pomalyst] 2 mg PO DAILY #21 capsule 11/25/16 [Rx] Cyanocobalamin (Vitamin B-12) [Vitamin B-12] 100 mcg PO DAILY 12/02/16 [History] Allergies clarithromycin [From Biaxin] Adverse Reaction (Verified 09/28/16 15:36) Nausea Penicillins [PCN] Adverse Reaction (Verified 09/28/16 15:36) Fainting Sulfa (Sulfonamide Antibiotics) Adverse Reaction (Verified 09/28/16 15:36) Hives All Systems Review: A 10-system review of systems was performed and is negative for pertinent findings except as documented above in the HPI. - Cardiovascular Cardiovascular: as per HPI - Gastrointestinal Gastrointestinal: abdominal pain Physical Examination Vital Signs, Last 4 Hours Temp Pulse Resp BP Pulse Ox 12/04/16 11:34 98.7 F 92 18 127/69 95 General: Conversant, No Apparent Distress HEENT: Atraumatic, Normocephaly, Mucus Membranes Moist Neck: No JVD, Normal carotid pulses Cardiac: Reg Rate and Rhythm, Normal S1 and S2, No Murmur Lungs: Other (Bilateral lower lobes with coarse breath sounds. ) Neuro: Alert and responsive, No focal deficits noted Abdomen: Other (Tender abdomen. ) Skin: No rashes noted on visualized skin Musculoskeletal: No Chest Wall Tenderness Extremities: No Clubbing, No Cyanosis, No Edema, Normal Pulses Results 12/04/16 08:58 12/04/16 08:58 Lab Results Impressions Small Bowel X-Ray 12/03/16 12:31 IMPRESSION: Incomplete progression of contrast material through the small bowel over the course of the exam with the exam carried out to 7 hours. Multiple distended loops of small bowel present without other abnormality identified or discrete transition point identified. Findings are compatible with small bowel obstruction. Continued follow-up suggested. D/ / 12/04/2016 09:55:38 Conrad Whittaker MD / nicky Interpreting Provider: Conrad Whittaker MD X-Ray 12/04/16 12:00 IMPRESSION: High-grade proximal small bowel obstruction concerning for a closed loop obstruction. No contrast is identified in the distal small bowel or colon. D/ / 12/04/2016 13:10:24 Austen Lo MD / Tameka Wynn Interpreting Provider: Austen Lo MD Active Medications Acetaminophen (Tylenol) 650 mg PO Q6HR PRN PRN Reason: Mild Pain/Fever Stop: 06/04/17 00:55 Acyclovir (Zovirax) 800 mg PO BID [facility] PRN Reason: Protocol Stop: 06/04/17 09:01 Last Admin: 12/04/16 08:45 Dose: 800 mg Alprazolam (Xanax) 0.5 mg PO BID PRN; Protocol PRN Reason: Anxiety Stop: 06/04/17 00:40 Last Admin: 12/03/16 20:19 Dose: 0.5 mg Amlodipine Besylate (Norvasc) 5 mg PO DAILY [facility] PRN Reason: Protocol Stop: 06/04/17 09:01 Last Admin: 12/04/16 08:45 Dose: Not Given Aspirin (Aspirin Ec) 81 mg PO DAILY [facility] Stop: 06/04/17 09:01 Last Admin: 12/04/16 08:45 Dose: 81 mg Fentanyl (Duragesic) 25 mcg TD Q72H [facility] Stop: 06/05/17 09:01 Last Admin: 12/04/16 09:20 Dose: 25 mcg Hydromorphone HCl (Dilaudid) 0.5 mg IVP Q3HR PRN PRN Reason: Severe Pain Stop: 06/04/17 00:55 Last Admin: 12/04/16 03:50 Dose: 0.5 mg Ciprofloxacin Lactate (Cipro Premix 400 Mg/200 Ml) 400 mg in 200 mls @ 200 mls/ hr IVPB Q12H [facility] Stop: 06/04/17 19:01 Last Infusion: 12/04/16 07:26 Dose: Infused Metronidazole (Flagyl Premix 500 Mg/100 Ml) 500 mg in 100 mls @ 100 mls/hr IVPB Q8H [facility] Stop: 06/04/17 18:30 Last Infusion: 12/04/16 13:06 Dose: Infused Dextrose/Sodium Chloride (D5% And 0.9% Nacl 1000 Ml) 1,000 mls @ 100 mls/hr IVC .Q10H [facility] Stop: 06/05/17 10:31 Last Admin: 12/04/16 11:17 Dose: 100 mls/hr Lisinopril (Zestril) 10 mg PO DAILY [facility] PRN Reason: Protocol Stop: 06/04/17 09:01 Last Admin: 12/04/16 08:47 Dose: Not Given Metoprolol Succinate (Toprol Xl) 25 mg PO DAILY [facility] Stop: 06/04/17 09:01 Last Admin: 12/04/16 08:45 Dose: 25 mg Morphine Sulfate (Morphine Sulfate) 2 mg IVP Q3HR PRN PRN Reason: Moderate Pain Stop: 06/04/17 00:55 Naloxone HCl (Narcan) 0.4 mg IVP Q2MIN PRN PRN Reason: Opioid Reversal Stop: 06/03/17 23:04 Ondansetron HCl (Zofran) 4 mg IVP Q4H PRN; Protocol PRN Reason: Nausea Stop: 06/04/17 15:20 Pantoprazole Sodium (Protonix) 40 mg IVP 0630 [facility] Stop: 06/04/17 06:31 Last Admin: 12/04/16 05:52 Dose: 40 mg Polyethylene Glycol (Miralax) 17 gm PO DAILY [facility] Stop: 06/05/17 10:31 Last Admin: 12/04/16 11:21 Dose: Not Given Promethazine HCl (Phenergan) 12.5 mg IVP Q4H PRN PRN Reason: Nausea And Vomiting Stop: 06/03/17 23:04 Last Admin: 12/04/16 13:04 Dose: 12.5 mg Senna/Docusate Sodium (Senna Plus) 1 each PO BID [facility] PRN Reason: Protocol Stop: 06/05/17 10:31 Last Admin: 12/04/16 11:21 Dose: Not Given Laboratory Tests 12/03/16 12/04/16 12/04/16 05:22 08:58 08:58 WBC 2.0 L Hgb 10.3 L Plt Count 137 L Creatinine 1.00 1.30 H - Imaging and Cardiology Chest Xray: report reviewed Stress Test: report reviewed Echo: report reviewed - EKG Interpretation EKG results cardiology: other (Not on telemetry.) Consult Discharge Plan - Plan Referrals: Sal Tomlin MD [Primary Care Provider] -
[2016-12-04] MEDS ORDERED: 0.9 % Sodium Chloride 1,000 ML ONE ×2 (16:13→16:35)
[2016-12-04] MEDS ORDERED: Heparin 1,000 UNITS/500 mL NS 500 ML ONE (16:13)
[2016-12-04] MEDS ORDERED: *HR* Heparin 10,000 UNIT/10 ML VIAL ONE (16:13)
[2016-12-04] MEDS ORDERED: Nitroglycerin 1,000 MCG/10 ML VIAL IV ONE (16:13)
[2016-12-04] MEDS ORDERED: *HR* FentaNYL (PF) 100 MCG/2 ML VIAL ONE (16:21)
[2016-12-04] MEDS ORDERED: *HR* Midazolam HCl 2 MG/2 ML VIAL ONE (16:21)
--- NOTE | 2016-12-04 16:43 | Pre-Sedation Evaluation ---
Pre-sedation evaluation - Pre-sedation checklist Date of procedure: 12/04/16 Procedure: heart cath Recent Vitals: Last Vital Signs Temp 98.7 F 12/04/16 15:38 Pulse 102 12/04/16 15:38 Resp 18 12/04/16 15:38 BP 114/74 12/04/16 15:38 Pulse Ox 94 12/04/16 15:38 H&P (including ROS) documented in medical record: Yes Previous reaction to sedatives/anesthetics: No Dietary Status: NPO after Midnight Dentition: dentures removed ASA Classification *see protocol: CLASS II-Mild systemic disease Plan of Care: Pt appropriate candidate for procedure/moderate/conscious sedation , Risks/benefits of procedure/sedation discussed w/ patient/family
[2016-12-04] MEDS ORDERED: Verapamil 5 MG/2 ML VIAL ONE (16:48)
--- NOTE | 2016-12-04 17:07 | Event Note ---
Date of Encounter: 12/04/16 Time of Encounter: 17:00 - Cardiology Event Note LHC Nonischemic cardiomyopathy with normal LVEDP Borderline severe mid LAD disease 70%, patient is acceptable intermediate CV risk for intermediate risk surgery (ie bowel surgery)
--- NOTE | 2016-12-04 17:20 | Invasive Diagnostic Lab Proc ---
Name: Van Craig Date of Study: 12/04/2016 Date: 1940 Ht: 65.0in Medical Record#: [id number] Age: 76 Wt: 127.87lb Gender: Male BSA: 1.63 Order #: [id number] BMI: 21.3 Physicians Procedure Physician: Jules Ramírez MD, [facility] Referring MD: Referring MD: Staff Name Position Time In Nam Go RN Scientific Director 04:43 PM Lamar Smallwood RT (R) Csc 04:43 PM Jeniffer Resendiz RN Monitor 04:44 PM Indications Indication Cardiomyopathy Procedures Performed Procedure L HRT ARTERY/VENTRICLE ANGIO Pre-Procedure Checklist Informed consent is complete signed and on chart. H&P is on chart. ID band is on and ID verified with patient. Patient NPO for procedure The procedure was described for the patient and questions were answered. Blood Pressure: 114/74 ECG is on chart. Rhythm: Sinus Tachycardia Plan of Care Patient will tolerate the procedure without complications. Adequate level of comfort will be maintained. Hemodynamics will remain stable Patient will recover from procedure without complications. Respiratory function will be maintained. Cardiac rhythm will remain stable. Patient temperature will be maintained. Patient and/or family have verbalized understanding of the procedure. Patient Education Chief Complaint/Reason for Test: Cardiac Cath Developmental Category: Geriatric (65+ years) Developmentally Appropriate for Age: Yes Learning Barriers: None Education Needs: Procedure Education Method: Verbal Information Taught: Cardiac Cath Educational Evaluation: Able to repeat information Intravenous Access Time IV Size Location DC'd Fluid/Drip Rate Units RN 04:12 PM 18g 1 05/27" Patent On Arrival Rt Antecubital 0.9NaCl 25 ml/hr Nam Go RN Allergies Penicillins codeine Emycin clarithromycin SULFA (sulfonamide) Vital Signs Time BP (mmHg) HR (bpm) O2 Sat. RR (bpm) LOC 04:11 PM 114 / 74 102 96 % 18 5 = Fully awake and oriented or at pre-proc level 04:53 PM / % 5 = Fully awake and oriented or at pre-proc level 04:39 PM 141 / 83 % 04:45 PM 135 / 79 103 100 % 14 5 = Fully awake and oriented or at pre-proc level 04:50 PM 114 / 70 103 100 % 19 04:54 PM 113 / 67 90 100 % 14 5 = Fully awake and oriented or at pre-proc level 04:59 PM 101 / 67 111 100 % 19 5 = Fully awake and oriented or at pre-proc level 05:05 PM 120 / 74 110 100 % 19 04:53 PM / % 5 = Fully awake and oriented or at pre-proc level Procedural Medications Time Medication Dose Units Method Given By 04:44 PM Oxygen 2 L/min nasal cannula Nam Go RN 04:45 PM Versed 1 mg Intravenous Nam Go RN 04:45 PM Fentanyl 25 mcg Intravenous Nam Go RN 04:55 PM Heparin 4000 units 04:55 PM Nitroglycerin 200 mcg 04:55 PM Verapamil 2.5 mg Intraarterial Jules Ramírez MD, [facility] ASA Classification: CLASS II- Mild systemic disease (i.e. well-controlled diabetes, hypertension, asthma, cigarette smoking) Niki Score Preprocedure Postprocedure Activity 2- Moves 4 extremities sustained head lift Activity 2- Moves 4 extremities sustained head lift Circulation 2- SBP +/= 20 points of pre-anesthetic level Circulation 2- SBP +/= 20 points of pre-anesthetic level Consciousness 2- Awake and alert oriented x 3 Consciousness 2- Awake and alert oriented x 3 O2 Saturation 2- Able to maintain O2 satruation of 92% on room air O2 Saturation 2- Able to maintain O2 satruation of 92% on room air Respiratory 2- Able to deep breathe and cough well Respiratory 2- Able to deep breathe and cough well Total Score 10 Total Score 10 Contrast Agent: Isovue Diagnostic Contrast: 39 ml Total Contrast: 39 ml Fluoro Dose: 173 mGy Procedure Log Time Note Enter By 04:39 PM CathStat 04:39 PM Case Start 04:39 PM Vitals capture started with the following parameters, Patient=Adult, Interval=5 min, Initial Hdwcezel=025 mmHg, Deflation Rate=5 mmHg, Cuff placed on Right Arm 04:39 PM IKFE=552/83 mmhg, Comment=ST 04:43 PM Pt arrived to aquatic life laborer 2 at 16:43 [email or web address] 04:43 PM Nam Go RN Position: Scientific Director Time in: 16:43 csmith 04:44 PM Lamar Smallwood RT (R) Position: Scrub Time in: 16:43 csmith 04:44 PM Jeniffer Resendiz RN Position: Monitor Time in: 16:44 csmith 04:44 PM Patient charges- Angio tray pack, Navilyst 3mm J, Pulse Oximetry and ACIST tubing and transducer csmith 04:44 PM Case Delayed No csmith 04:44 PM Hair removed from procedure site in procedure lab using clippers. Right wrist and right groin prepped with Chloraprep by Lamar Smallwood (R), safety strap applied then patient was draped. Skin intact. csmith 04:44 PM Recorded ECG: HR=98 Condition=Condition 1 04:44 PM Physician arrived 16:44 csmith 04:44 PM ASA Class CLASS II- Mild systemic disease (i.e. well-controlled diabetes, hypertension, asthma, cigarette smoking) csmith 04:44 PM Meet and greet completed csmith 04:44 PM Sign in performed according to hospital policy. csmith 04:44 PM Procedure start 16:44 csmith 04:45 PM TA=163 bpm, OQKG=566/79 mmhg, VkM5=629.0 %, Resp=14 B/min, Comment=ST 04:45 PM Time: 16:44 Oxygen on at 2 L/min per nasal cannula by Nam Go RN [facility] 04:45 PM Time: 16:45 Versed 1 mg Intravenous Given by Nam Go RN [facility] 04:45 PM Time: 16:45 Fentanyl 25 mcg Intravenous Given by Nam Go RN csmith 04:50 PM MU=715 bpm, FWXI=413/70 mmhg, FiY1=762.0 %, Resp=19 B/min, Comment=ST 04:53 PM Time out performed according to hospital policy ejohnson 04:53 PM Time: 16:53 Patient comfortable and pain free: Yes ejohnson 04:53 PM Time: 16:53LOC: 5 = Fully awake and oriented or at pre-proc level ejohnson 04:53 PM Pressure channel 1 zeroed. 04:54 PM Access obtained by percutaneous puncture. 5Fr 10cm Terumo Glidesheath sheath placed in right Radial artery. [id number] ejohnson 04:54 PM Time: 16:54 Patient given 4,000 units Heparin, 200 mcg Nitroglycerin, and 2.5 mg Verapamil Intraarterial by Jules Ramírez MD, [facility] ejohnson 04:54 PM HR=90 bpm, NERG=684/67 mmhg, BrL0=838.0 %, Resp=14 B/min, Comment=ST 04:55 PM 5Fr TIG catheter inserted over the wire [facility] ejohnson 04:56 PM Catheter selectively placed in left ventricle ejohnson 04:56 PM Pressure channel 1 zero failed. 04:56 PM Pressure channel 1 zeroed. 04:56 PM Recorded Pressure: LV, UC=898, Condition=Condition 1 (Left Ventricle) LV 86/6/15 04:57 PM Recorded Pressure: LV, Ao, ET=688, Condition=Condition 1 (Left Ventricle) LV 109/2/10, (Aorta) Ao 97/70/79 04:57 PM LCA angiography performed in multiple views. ejohnson 04:57 PM Recorded Pressure: Ao, TJ=034, Condition=Condition 1 (Aorta) Ao 92/68/80 04:58 PM Lesion found in Mid Circumflex. Pre Stenosis: 40 Pre DEISI Flow: 3: Complete and Brisk Flow/Perfusion ejohnson 04:59 PM Lesion found in Mid LAD. Pre Stenosis: 70 Pre DEISI Flow: 3: Complete and Brisk Flow/Perfusion ejohnson 04:59 PM Lesion found in 1st Diagonal. Pre Stenosis: 60 Pre DEISI Flow: 3: Complete and Brisk Flow/Perfusion ejohnson 04:59 PM Mid/Distal Left Anterior Descending Coronary Artery and diagonal branches with 70% stenosis. ejohnson 04:59 PM Circumflex, Obtuse Marginal, Left Posterior Descending, and Left Posterolateral Coronary Arteries with 40 % stenosis. ejohnson 04:59 PM GA=449 bpm, XXKD=780/67 mmhg, VmR9=376.0 %, Resp=19 B/min, Comment=ST 05:00 PM Catheter removed ejohnson 05:00 PM 5Fr IM catheter inserted over the wire [id number] ejohnson 05:00 PM Lesion found in Proximal Circumflex. Pre Stenosis: 40 Pre DEISI Flow: 3: Complete and Brisk Flow/Perfusion ejohnson 05:01 PM Recorded Pressure: Ao, HY=888, Condition=Condition 1 (Aorta) Ao 115/89/102 05:01 PM RCA angiography performed in multiple views. ejohnson 05:02 PM Coronary Dominance: right ejohnson 05:02 PM Catheter removed ejohnson 05:04 PM Procedure completed at 17:04 ejohnson 05:05 PM Sign out completed: Radiation Dose 172.88 mGy Fluoro Time: 1.9 Isovue 370 - 200ml contrast 39 ml given by Jules Ramírez MD, [facility]. Complications: NoneCardiac Rehab Consult needed: NoConfirmed administered medications: Yes ejohnson 05:05 PM TM=063 bpm, XHFK=931/74 mmhg, RaV9=720.0 %, Resp=9 B/min, Comment=ST 05:05 PM Isovue 370 - 200ml,1 Bottle(s) used. ejohnson 05:05 PM Arterial sheath pulled, Vasc Band closure device used and was Successful ejohnson 05:07 PM 10 ml air in Vasc Band. ejohnson 05:07 PM Post ECG Sinus Tachycardia ejohnson 05:07 PM Post Blood Pressure 120/74 ejohnson 05:07 PM 17:07 Post Pulses Rt Radial 1+ ejohnson 05:07 PM Information taught Cardiac Cath and Vasc Band ejohnson 05:08 PM Education needs Plan of Care, Disease Process, and Responsibilities of Patient in Care ejohnson 05:08 PM Learning barriers :None ejohnson 05:08 PM Time: 16:53LOC: 5 = Fully awake and oriented or at pre-proc level ejohnson 05:08 PM Time: 16:53 Patient comfortable and pain free: Yes ejohnson 05:09 PM Education Methods Verbal ejohnson 05:09 PM Education evaluation Able to repeat information ejohnson 05:09 PM Site status No bleeding/hematoma - Rt Wrist as reported by Lamar Smallwood RT (R) at 17:09 ejohnson 05:09 PM Report given to Benedicto JUNIOR Pt taken to 3A Room #13. 17:09 ejohnson 05:09 PM Plavix, Effient or Brilinta given No ejohnson 05:09 PM Delay to floor No ejohnson 05:09 PM Patient out of room: 17:09 ejohnson 05:09 PM Family placed in consult room. ejohnson 05:10 PM Complications: None ejohnson Complications Complication None Hemodynamics Pressures Site Systolic/A Wave Diastolic/V Wave Mean LV 86 6 15 LV 109 2 10 AO 97 70 79 AO 92 68 80 AO 115 89 102 Post Procedure Information Blood Pressure: 120/74 mmHg Rhythm: Sinus Tachycardia Post procedural instructions were given Closure Device Time Device Success/Fail 12/04/2016 5:05:00 PM Mechanical Compression Site Checks Time Location Status Staff Sheath In? Note 05:09 PM Rt Wrist No bleeding/hematoma Lamar Smallwood RT (R) Pulses Time Site Pre-Procedure Post-Procedure Note 12/04/2016 4:14:00 PM Bilateral DP 1+ 12/04/2016 4:14:00 PM Bilateral radial 2+ 5:07:00 PM Rt Radial 1+ Updated by Jeniffer Resendiz RN on 12/04/2016 5:12:54 PM Jeniffer Resendiz RN electronically signed on 12/04/2016 5:13:19 PM with status of Final
[2016-12-05] MEDS: D5% in 0.9% NACL 1,000 ML IVC SCH ×2 (01:23→07:27)
[2016-12-05] MEDS: MetroNIDAZOLE 500 MG/100 ML 500 MG/100 ML BAG IVPB SCH ×3 (02:39→23:29)
[2016-12-05] MEDS: Pantoprazole 40 MG VIAL IVP SCH (06:13)
[2016-12-05 06:22] LABS: Hematocrit 29.4 % (37.5-50.1); Hemoglobin 9.7 g/dL (12.9-16.9); Mean Corpuscular Hemoglobin 32.3 pg (28.0-33.3); Mean Platelet Volume 10.8 fL (9.4-12.4); Platelet Count 141 K/mcL (140-400); Red Cell Distribution Width 22.1 % (11.5-14.5)
[2016-12-05 06:35] LABS: Alanine Aminotransferase 9 Units/L (0-55); Albumin 2.9 g/dL (3.5-5.0); Albumin/Globulin Ratio 0.5 (1.1-2.2); Alkaline Phosphatase 54 Units/L (38-126); BUN/Creatinine Ratio 19 (6-26); Bilirubin,Total 1.2 mg/dL (0.2-1.2); Blood Urea Nitrogen 22 mg/dL (8-26); Calcium 9.2 mg/dL (8.6-10.8); Carbon Dioxide 27 mEq/L (19-29); Chloride 104 mEq/L (98-109); Globulin 5.8 g/dL (2.4-3.5); Glucose 139 mg/dL (70-99); Osmolality,Calculated 286 (280-300); Potassium 4.4 mEq/L (3.5-4.5); Sodium 135 mEq/L (136-145); Total Protein 8.7 g/dL (6.0-8.3); eGFR For African Americans > 60 (> 60); eGFR For Non-African Americans > 60 (> 60)
[2016-12-05 07:57] LABS: Aspartate Amino Transferase 25 Units/L (5-34); Magnesium 1.9 mg/dL (1.6-2.6)
--- NOTE | 2016-12-05 08:34 | Internal Med Progress Note ---
Date of Encounter: 12/05/16 Time of Encounter: 08:31 - Assessment and plan (1) Small bowel obstruction Current Visit: Yes Status: Acute Assessment and plan: His N/V and Hiccups seems to worsening No BM yet..had passed gas one time y/d Reviewed abd X ray from this morning..still distended stomach and dilated small bowel loops with SBO Since his symptoms are worsening he may get benefit with NG tube Will talk to surgery Cont empirical abx Cipro and Flagyl cont NPO for now cont gentle IV hydration Spoke to Heme Oncologist - does not believe his multiple myeloma causing SBO (2) Cardiomyopathy due to chemotherapy Current Visit: No Status: Acute Assessment and plan: had 2 D Echo 11/19/16 showed LVEF 30% severe global dysfunction Consulted Telephone Order Clerk Room Service for pre op clearance Did go for LHC y/d showed Non ischemic cardiomyopathy with normal LVEDP borderline severe mid LAD disease 70% stenosis no need of repeat 2 D Ehco cont close monitoring pt is intermediate risk for surgeries like laparotomy (3) Abdominal pain Current Visit: Yes Status: Acute Assessment and plan: due to SBO Improving Qualifiers: Abdominal location: lower abdomen, unspecified Qualified Code(s): R10.30 - Lower abdominal pain, unspecified (4) Acute kidney injury Current Visit: No Status: Acute Assessment and plan: due to dehydration resolved cont gentle iV hydration (5) Multiple myeloma Current Visit: Yes Status: Chronic Assessment and plan: following Heme Onc currently under active chemo therapy received last chemo on Wednesday need to f/u with Heme Onc as an out pt Qualifiers: Multiple myeloma remission status: not in remission Qualified Code(s): C90.00 - Multiple myeloma not having achieved remission (6) Pancytopenia Current Visit: No Status: Chronic Assessment and plan: due to multiplemyeloma stable blood count so far cont close monitoring no need of transfusions at this point (7) DVT prophylaxis Current Visit: Yes Status: Acute Assessment and plan: on SCD's (8) Chronic pain due to neoplasm Current Visit: Yes Status: Acute Assessment and plan: cont home regimen of Fentanyl - Subjective Interval history: Mr. Craig is a 76 year old male with history of multiple myeloma, chronic back pain, remote history of appendectomy in 1965. He presents to emergency department with left lower quadrant pain going to RLQ, started y/d and gradually getting worse. He reports associated nausea but no vomiting. His last bowel movement was yesterday. He was evaluated in the emergency department and CT scan of the abdomen and pelvis reported "Fluid-filled dilation of small bowel in the mid to lower abdomen, suggesting small bowel obstruction." He had no bowel movement or flatus since y/d. Still having nausea, vomiting and worsening hiccups. However his abdominal pain resolved. He denies fever, chills , chest pain, shortness of breath, dysuria, hematuria. He did got for cardiac cath last night for pre op clearance - Constitutional Vitals: Temp Pulse Resp BP Pulse Ox 98.4 F 100 18 153/82 95 12/05/16 06:28 12/05/16 06:28 12/05/16 06:28 12/05/16 06:28 12/05/16 06:28 General appearance: Present: mild distress, A&O X 3, answers questions appropriately - Respiratory Respiratory exam: Present: CTAB. Absent: accessory muscle use, rales, rhonchi, wheezes - Cardiovascular Cardiovascular exam: Present: RRR, +S1, +S2. Absent: diastolic murmur, gallop, rubs, systolic murmur - GI/Abdominal GI/Abdominal exam: Present: distended (more distended today), hypoactive bowel sounds, soft, no peritoneal signs. Absent: rebound, tenderness - Extremities Exam Extremities exam: Absent: calf tenderness, pedal edema, tenderness - Psychiatric Psychiatric exam: Present: normal affect, normal mood Internal Medicine: Result - Labs CBC & Chem 7: 12/05/16 06:06 12/05/16 07:13 Labs: Short CBC 12/04/16 12/05/16 Range/Units 08:58 06:06 WBC 2.0 L 2.5 L (4.3-11.1) K/mcL Hgb 10.3 L 9.7 L (12.9-16.9) g/dL Hct 31.3 L 29.4 L (37.5-50.1) % Plt Count 137 L 141 (140-400) K/mcL Neutrophils # 1.2 L (1.6-8.9) K/mcL BMP 12/04/16 12/05/16 08:58 07:13 Sodium 135 L 135 L Potassium 4.3 4.4 Chloride 105 104 Carbon Dioxide 25 27 BUN 20 22 Creatinine 1.30 H 1.14 Glucose 116 H 139 H Calcium 9.4 9.2 Liver Function 12/04/16 12/05/16 Range/Units 08:58 07:13 Total Bilirubin 1.3 H 1.2 (0.2-1.2) mg/dL AST 16 25 (5-34) Units/L ALT 8 9 (0-55) Units/L Alkaline Phosphatase 54 54 (38-126) Units/L Albumin 3.0 L 2.9 L (3.5-5.0) g/dL - Impressions Impressions Small Bowel X-Ray 12/03/16 12:31 IMPRESSION: Incomplete progression of contrast material through the small bowel over the course of the exam with the exam carried out to 7 hours. Multiple distended loops of small bowel present without other abnormality identified or discrete transition point identified. Findings are compatible with small bowel obstruction. Continued follow-up suggested. D/ / 12/04/2016 09:55:38 Conrad Whittaker MD / nicky Interpreting Provider: Conrad Whittaker MD X-Ray 12/04/16 12:00 IMPRESSION: High-grade proximal small bowel obstruction concerning for a closed loop obstruction. No contrast is identified in the distal small bowel or colon. D/ / 12/04/2016 13:10:24 Austen Lo MD / Tameka Wynn Interpreting Provider: Austen Lo MD KUB X-Ray 12/04/16 17:00 IMPRESSION: 1. No significant change since 12/04/2016 at 12:07 p.m.. Findings remain concerning for high grade small bowel obstruction. No contrast is appreciated in the large bowel. These findings were discussed with Dr. Brandt by Dr. Torres 12/04/2016 at approximately 5:45 p.m. D/ / Ashley Yarbrough MD / Ashley Yarbrough MD Interpreting Provider: Ashley Yarbrough MD X-Ray 12/05/16 00:01 IMPRESSION: The stomach is distended. Dilated small bowel remains, most consistent with small bowel obstruction. The appearance is similar to the prior exam. D/ / 12/05/2016 07:54:51 Anastacio Felipe MD / tito Interpreting Provider: Anastacio Felipe MD Consult Discharge Plan - Plan Referrals: Sal Tomlin MD [Primary Care Provider] -
[2016-12-05 08:45] LABS: Lymphocytes # 0.5 K/mcL (0.6-4.6); Monocytes # 0.1 K/mcL (0.0-1.3); Platelet Estimate Normal (Normal)
[2016-12-05 08:46] LABS: Anisocytosis 1+ (Not Present)
[2016-12-05 08:47] LABS: Macrocytosis Present (Not Present)
[2016-12-05] MEDS: Aspirin Enteric Coated 81 MG Tablet PO SCH (09:12)
[2016-12-05] MEDS: amLODIPine 5 MG TABLET PO SCH (09:12)
[2016-12-05] MEDS: Sennosides/Docusate Sodium TABLET PO SCH (09:13)
[2016-12-05] MEDS: Metoprolol XL (24 HR) Succ 25 MG TAB.ER.24H PO SCH ×2 (09:13→10:02)
--- NOTE | 2016-12-05 09:52 | Oncology Inp Consult Note ---
Date of Encounter: 12/05/16 Time of Encounter: 09:00 Assessment and Plan (1) Multiple myeloma Status: Chronic Assessment and plan: Patient has IgG kappa multiple myeloma. He is heavily pretreated. Therapies been on hold for nearly 3 weeks. I do not think his small bowel structures related to myeloma nor his therapy although I cannot entirely rule this out. If surgery is indicated, I see no contraindication to surgery from my perspective. His counts are adequate. We will continue to follow. Please hesitate to call [phone] with concerns or questions Qualifiers: Multiple myeloma remission status: not in remission Qualified Code(s): C90.00 - Multiple myeloma not having achieved remission - Data of Consult Requesting Physician: Rubin Conrad MD Primary Care Provider: Sal Tomlin MD - Consult Narrative Reason for consult: Multiple myeloma/SBO History of present illness: Mr. Craig is a 76 year old male with IgG kappa multiple myeloma management my partner, Dr. Quach. Patient is heavily pretreated as outlined in his most recent note. Most recently, he has been treated with Kytril us in late October his courses completed by congestive heart failure which is thought secondary to this medication. He has been off therapy now nearly 3 weeks. His last visit was on December 02, day of admission. He presented with a few day history of left lower quadrant abdominal pain treated to the right lower quadrant. This was associated with nausea and vomiting. He presented to the emergency department where imaging revealed a small bowel obstruction. Most recent CT 12/02/2016 revealed fluid-filled dilation of small bowel in the mid to lower abdomen, suggesting small bowel obstruction. Multiple lytic lesions within the lumbar spine, with stable appearing compression fractures, compatible with the patient's history of multiple myeloma. He is been managed conservatively but unfortunate symptoms persist. In preparation for possible surgery, cardiology performed a heart catheterization which revealed nonocclusive disease of the LAD. No intervention was recommended at current. In meeting with the patient today, his pain persists. He is yet to have an NG tube placed but the nurses planning for this occurrence. He threw up approximate 2 cups of bolus emesis overnight as nauseated again this morning. Past Med Surg Social Fam HX - Past Medical History Medical history: cancer, cardiomyopathy, GERD, other Psychiatric history: no psych history - Past Surgical History Surgical History: appendectomy, other - Social History Smoking Status: Never smoker Smokeless Tobacco Status: No Alcohol use: none Drug use: none - Family History Grandfather Adopted: No Family Member Ethnicity: Non- Living Status: Hx Family Cancer: Yes Father Family Member Ethnicity: Non- Living Status: Age at : 88 Cause of : natural Hx Family Endocrine Disorder: Yes (diabetes) Mother Living Status: Age at : 85 Cause of : natural Hx Family Endocrine Disorder: Yes (Diabetes) Medications and Allergies Multivit-Min/FA/Lycopen/Lutein [Centrum Silver Tablet] 1 tab PO DAILY 01/04/15 [ History] Aspirin [Adult Low Dose Aspirin EC] 81 mg PO DAILY #30 tablet. 02/01/15 [Rx] amLODIPine [Norvasc] 5 mg PO DAILY 07/16/16 [History] Omeprazole [PriLOSEC] 20 mg PO DAILY #90 cap 08/18/16 [Rx] Prochlorperazine Maleate [Compazine] 10 mg PO Q6HR PRN #30 tablet 10/21/16 [Rx] ALPRAZolam [Xanax 0.5 MG Tablet] 0.5 mg PO BID PRN #40 tablet 11/17/16 [Rx] FentaNYL PATCH [Duragesic] 25 mcg TD Q72H #10 patch.td72 11/17/16 [Rx] Acyclovir [Zovirax] 800 mg PO BID tablet 11/21/16 [Rx] Furosemide [Lasix] 20 mg PO DAILY PRN #30 tablet 11/21/16 [Rx] Lisinopril [Zestril] 10 mg PO DAILY #30 tablet 11/21/16 [Rx] Metoprolol XL (24 HR) Succ [Toprol Xl] 25 mg PO DAILY #30 tab.er.24h 11/21/16 [ Rx] Pomalidomide [Pomalyst] 2 mg PO DAILY #21 capsule 11/25/16 [Rx] Cyanocobalamin (Vitamin B-12) [Vitamin B-12] 100 mcg PO DAILY 12/02/16 [History] Allergies clarithromycin [From Biaxin] Adverse Reaction (Verified 09/28/16 15:36) Nausea Penicillins [PCN] Adverse Reaction (Verified 09/28/16 15:36) Fainting Sulfa (Sulfonamide Antibiotics) Adverse Reaction (Verified 09/28/16 15:36) Hives All systems: reviewed and no additional remarkable complaints except as stated Constitutional: Present: fatigue, lethargy Eyes: Present: as per HPI Ears: Present: as per HPI Nose, mouth and throat: Present: as per HPI Cardiovascular: Present: as per HPI Respiratory: Present: as per HPI Gastrointestinal: Present: cramping, nausea, vomiting Neurological: Present: as per HPI Oncology - Exam - Constitutional Vitals: Temp Pulse Resp BP Pulse Ox 98.4 F 100 18 153/82 95 12/05/16 06:28 12/05/16 06:28 12/05/16 06:28 12/05/16 06:28 12/05/16 06:28 - Head Head exam: Present: atraumatic, normal inspection, normocephalic - Eye Eye exam: Present: normal appearance, conjuntiva pink, sclera anicteric - ENT ENT exam: Present: mucous membranes dry, mucous membranes moist, normal oropharynx - Neck Neck exam: Present: full ROM, normal inspection - Respiratory Respiratory exam: Present: CTAB - Cardiovascular Cardiovascular exam: Present: RRR - GI/Abdominal GI/Abdominal exam: Present: diminished bowel sounds, distended, firm, tenderness - Extremities Exam Extremities exam: Present: normal inspection - Neurological Exam Neurological exam: Present: altered, CN II-XII intact, oriented X3 - Skin Skin exam: Present: normal color Oncology - Results - Labs Labs: Short CBC 12/05/16 Range/Units 06:06 WBC 2.5 L (4.3-11.1) K/mcL Hgb 9.7 L (12.9-16.9) g/dL Hct 29.4 L (37.5-50.1) % Plt Count 141 (140-400) K/mcL Neutrophils # 2.0 (1.6-8.9) K/mcL BMP 12/05/16 07:13 Sodium 135 L Potassium 4.4 Chloride 104 Carbon Dioxide 27 BUN 22 Creatinine 1.14 Glucose 139 H Calcium 9.2 Liver Function 12/05/16 Range/Units 07:13 Total Bilirubin 1.2 (0.2-1.2) mg/dL AST 25 (5-34) Units/L ALT 9 (0-55) Units/L Alkaline Phosphatase 54 (38-126) Units/L Albumin 2.9 L (3.5-5.0) g/dL - Imaging and Cardiology Abdominal x-ray Additional comments: SUPINE VIEW(S) OF THE ABDOMEN 12/05/2016 6:17 am COMPARISON: 12/04/2016 HISTORY: continued followup SBO Subsequent exam. FINDINGS: Dilated loops of small bowel are noted in the lower abdomen. The appearance is similar to the prior exam. Contrast is noted in the urinary bladder. No supine evidence of free air is identified. There is contrast within the bowel. The stomach is distended. An acute osseous abnormality is not identified. The bones are demineralized. There is degenerative change of the spine. An L2 compression deformity is again noted. XR/XR KUB IMPRESSION: The stomach is distended. Dilated small bowel remains, most consistent with small bowel obstruction. The appearance is similar to the prior exam. Consult Discharge Plan - Plan Referrals: Sal Tomlin MD [Primary Care Provider] -
[2016-12-05] MEDS: *HR* Promethazine 25 MG/ML VIAL IVP PRN (10:05)
[2016-12-05] MEDS ORDERED: Ringers Solution, Lactated 1,000 ML ONE (10:27)
[2016-12-05] MEDS ORDERED: *HR* Rocuronium Bromide 50 MG/5 ML VIAL ONE (10:53)
[2016-12-05] MEDS ORDERED: Lidocaine -MPF 2% 2 ML VIAL ONE (10:53)
[2016-12-05] MEDS ORDERED: *HR* FentaNYL (PF) 100 MCG/2 ML VIAL ONE (10:53)
[2016-12-05] MEDS ORDERED: Lidocaine -MPF 4% 5 ML AMPUL ONE (10:53)
[2016-12-05] MEDS ORDERED: *HR* Propofol 200 MG/20 ML VIAL IVP ONE (10:53)
[2016-12-05] MEDS ORDERED: *HR* Etomidate 40 MG/20 ML VIAL IVP ONE (10:56)
--- NOTE | 2016-12-05 11:01 | Anesthesia Evaluation PreOp ---
Date of Encounter: 12/05/16 Time of Encounter: 10:59 - Past History Planned Operation: Exlap Cardiac History: Other (cardiomyopathy EF 30%, per Dr Ramírez note"LHC Nonischemic cardiomyopathy with normal LVEDP Borderline severe mid LAD disease 70%, patient is acceptable intermediate CV risk for intermediate risk surgery ( ie bowel surgery)) Pulmonary History: Denies Any Significant HX LOCAL TRUCK DRIVER History: Denies Any Significant HX Other Medical History: Other (multiple myeloma) Anesthesia History: No Prior Anesthetic Complications, Past Anesthesia ( appendectomy, back surgery) Alcohol Use: none Drug use: none Medications and Allergies Multivit-Min/FA/Lycopen/Lutein [Centrum Silver Tablet] 1 tab PO DAILY 01/04/15 [ History] Aspirin [Adult Low Dose Aspirin EC] 81 mg PO DAILY #30 tablet. 02/01/15 [Rx] amLODIPine [Norvasc] 5 mg PO DAILY 07/16/16 [History] Omeprazole [PriLOSEC] 20 mg PO DAILY #90 cap 08/18/16 [Rx] Prochlorperazine Maleate [Compazine] 10 mg PO Q6HR PRN #30 tablet 10/21/16 [Rx] ALPRAZolam [Xanax 0.5 MG Tablet] 0.5 mg PO BID PRN #40 tablet 11/17/16 [Rx] FentaNYL PATCH [Duragesic] 25 mcg TD Q72H #10 patch.td72 11/17/16 [Rx] Acyclovir [Zovirax] 800 mg PO BID tablet 11/21/16 [Rx] Furosemide [Lasix] 20 mg PO DAILY PRN #30 tablet 11/21/16 [Rx] Lisinopril [Zestril] 10 mg PO DAILY #30 tablet 11/21/16 [Rx] Metoprolol XL (24 HR) Succ [Toprol Xl] 25 mg PO DAILY #30 tab.er.24h 11/21/16 [ Rx] Pomalidomide [Pomalyst] 2 mg PO DAILY #21 capsule 11/25/16 [Rx] Cyanocobalamin (Vitamin B-12) [Vitamin B-12] 100 mcg PO DAILY 12/02/16 [History] Allergies clarithromycin [From Biaxin] Adverse Reaction (Verified 09/28/16 15:36) Nausea Penicillins [PCN] Adverse Reaction (Verified 09/28/16 15:36) Fainting Sulfa (Sulfonamide Antibiotics) Adverse Reaction (Verified 09/28/16 15:36) Hives - Meds/Allergy Pre-op Review Medications Reviewed: Yes Allergies Reviewed: Yes Beta Blockers on Current Med List: Yes If Beta Blockers taken, Date/Time (Last Dose taken): 10am today Anesthesia Results - Labs 12/05/16 06:06 12/05/16 07:13 - Imaging EKG: other (sinus tacy with Pacs and Pvcs) Anesthesia Exam Vital Signs/O2 Sat, Most Current Temp Pulse Resp BP Pulse Ox 98.4 F 100 18 153/82 95 12/05/16 06:28 12/05/16 06:28 12/05/16 06:28 12/05/16 06:28 12/05/16 06:28 Height: 1.65m Weight: 58kg NPO (# of Hours): >8 - HEENT Pupil (Motor): Pupils equal, EOMI Mallampati: II Teeth: Edentulous Oral Opening: Greater than 3 - LOCAL TRUCK DRIVER LOC: Oriented LOCAL TRUCK DRIVER Motor: Normal RUE, Normal LUE, Normal RLE, Normal LLE, Normal Face LOCAL TRUCK DRIVER Sensory: Normal: RUE, LUE, RLE, LLE, Face - Cardiac Rhythm: Regular - Pulmonary Breath Sounds: bilateral Clear Respiratory Effort: Symmetrical Anesthesia Assess/Plan ASA Score: 4 (non ischemic cardiomyopathy with EF 30%) Modified Alexandre Scale for Level of Consciousness: Cooperative, oriented, and tranquil Anesthetic Plan: General (R/B/A discussed including periop SD, arrhythmia, , questions answered, consent obtained) Monitoring Plan: Standard Monitors, A-Line Recovery Plan: PACU
[2016-12-05] MEDS ORDERED: Ondansetron 4 MG/2 ML VIAL ONE (11:25)
--- NOTE | 2016-12-05 11:40 | General Surgery Progress Note ---
Date of Encounter: 12/05/16 Time of Encounter: 09:00 Subjective Narrative: General Surgery - this is a delayed note The patient describes hiccoughs almost the entire night. He was unable to rest. Status is essentially unchanged, afebrile 98.4, pulse is increased to 100-107 ; respirations 18, blood pressure 153/82. Repeat KUB this morning shows no progression of oral contrast beyond the distal small bowel/ileum consistent with SBO. This is likely d/t prior appendectomy which was complicated by an post appendectomy abscess. Lungs are clear Abdomen: Remains minimally tender in the left lower quadrant; minimally distended with hypoactive bowel sounds. Laboratories: White count is improved to 2.5, hemoglobin 9.7 with hematocrit 29.4; platelet count 141,000 Electrolytes, BUN, creatinine stable; stable hyponatremia at 135, BUN 22, creatinine has corrected to 1.14 Impression: Small bowel obstruction for which surgery has been recommended. This was discussed with the patient and his family in attendance. An open exploratory celiotomy is planned. Risks include hemorrhage, infection, injury to adjacent structures including small bowel, bladder, and ureters. Other risks such as pneumonia, and cardiac risk are present but appear to be controlled as best as possible. The possibility of a bowel resection, ileostomy and/or colostomy was also discussed. The patient and his family have expressed understanding. Consent for surgery has been obtained. We will proceed DERRICK. Objective Vital Signs - Last 8 Hours Temp Pulse Resp BP Pulse Ox 12/05/16 06:28 98.4 F 100 18 153/82 95 12/05/16 04:50 98.5 F 107 16 159/81 97 Intake and Output 12/04/16 12/05/16 12/05/16 23:59 07:59 15:59 Intake Total 100 / 100 2300 / 2300 200 / 200 Output Total 0 / 0 225 / 225 Balance 100 / 100 2075 / 2075 200 / 200 Intake: IV Fluids 100 / 100 2300 / 2300 200 / 200 D5% And 0.9% Nacl 1000 Ml 2000 / 2000 1,000 ML @ 100 mls/hr IVC .Q10H [facility] Rx#: [id number] Cipro Premix 400 MG/200 200 / 200 200 / 200 ML 400 mg In 200 ml @ 200 mls/hr IVPB Q12H [facility] Rx# :[id number] Flagyl Premix 500 MG/100 100 / 100 100 / 100 ML 500 mg In 100 ml @ 100 mls/hr IVPB Q8H [facility] Rx#: [id number] Oral 0 / 0 0 / 0 Output: Urine 0 / 0 225 / 225 Other: Meal NPO NPO Percent of Meal Consumed 0% Weight 58.3 kg 58.3 kg Blood Glucose* 142 130 Patient Weight 12/05/16 23:59 Weight 58.3 kg - Labs 12/05/16 06:06 12/05/16 07:13 Diabetes panel 12/05/16 Range/Units 07:13 Sodium 135 L (136-145) mEq/L Potassium 4.4 (3.5-4.5) mEq/L Chloride 104 (98-109) mEq/L Carbon Dioxide 27 (19-29) mEq/L BUN 22 (8-26) mg/dL Creatinine 1.14 (0.72-1.25) mg/dL Glucose 139 H (70-99) mg/dL Calcium 9.2 (8.6-10.8) mg/dL AST 25 (5-34) Units/L ALT 9 (0-55) Units/L Alkaline Phosphatase 54 (38-126) Units/L Albumin 2.9 L (3.5-5.0) g/dL Calcium panel 12/05/16 Range/Units 07:13 Calcium 9.2 (8.6-10.8) mg/dL Albumin 2.9 L (3.5-5.0) g/dL Pituitary panel 12/05/16 Range/Units 07:13 Sodium 135 L (136-145) mEq/L Potassium 4.4 (3.5-4.5) mEq/L Chloride 104 (98-109) mEq/L Carbon Dioxide 27 (19-29) mEq/L BUN 22 (8-26) mg/dL Creatinine 1.14 (0.72-1.25) mg/dL Glucose 139 H (70-99) mg/dL Calcium 9.2 (8.6-10.8) mg/dL Adrenal panel 12/05/16 Range/Units 07:13 Sodium 135 L (136-145) mEq/L Potassium 4.4 (3.5-4.5) mEq/L Chloride 104 (98-109) mEq/L Carbon Dioxide 27 (19-29) mEq/L BUN 22 (8-26) mg/dL Creatinine 1.14 (0.72-1.25) mg/dL Glucose 139 H (70-99) mg/dL Calcium 9.2 (8.6-10.8) mg/dL Total Bilirubin 1.2 (0.2-1.2) mg/dL AST 25 (5-34) Units/L ALT 9 (0-55) Units/L Alkaline Phosphatase 54 (38-126) Units/L Albumin 2.9 L (3.5-5.0) g/dL Consult Discharge Plan - Plan Referrals: Sal Tomlin MD [Primary Care Provider] -
[2016-12-05] MEDS ORDERED: Dexamethasone 4 MG/ML VIAL ONE (12:22)
[2016-12-05] MEDS ORDERED: Bupivacaine/EPI 1:200k 0.25%PF 30 ML VIAL ONE (12:22)
[2016-12-05] MEDS ORDERED: Neostigmine Methylsulfate 3 MG/3 ML SYRINGE ONE (12:23)
[2016-12-05] MEDS ORDERED: *HR* Meperidine 25 MG/ML SYRINGE IVP PRN (12:41)
[2016-12-05] MEDS ORDERED: *HR* HYDROmorphone (PF) 1 MG/ML SYRINGE IVP PRN ×2 (12:41→13:35)
[2016-12-05] MEDS ORDERED: *HR* Promethazine 25 MG/ML VIAL IVP PRN ×2 (12:41→13:35)
[2016-12-05] MEDS ORDERED: Ringers Solution, Lactated 1,000 ML IVC SCH (12:45)
--- NOTE | 2016-12-05 13:07 | Operative Note ---
Date of procedure: 12/05/16 Pre-op diagnosis: SBO Post-op diagnosis: same Procedure: exploratory celiotomy with INOCENCIO, release SBO Complications: none apparent Anesthesia: GETA Local Anesthetics: 0.25% Sensorcaine HCL with Epinephrine 1:200,000 SubQ (cc) ( 20mL) Surgeon: Maximino Brandt Key Worker Other: ROBERTO Sanders Student Estimated blood loss (cc): 5 IV fluids (cc): 10 Condition: stable Disposition: PACU Procedure in Detail: The patient was brought to the operating room where he was placed supine upon the operating room table. The patient was appropriately identified as to person and procedure. The accuracy of this information was confirmed by the procedure team. The patient was intubated and anesthetized under the supervision of Dr. Maryann Bernard. NG tube was placed, evacuating approximately 1700 mL green bilious fluid. The abdomen was palpated under anesthesia with no discernible masses encountered. A Dunne catheter was inserted. The abdomen was prepped and draped in the usual sterile fashion. A low midline incision was made from the pubic tubercle to the umbilicus. The incision was extended through the subcutaneous tissue to the fascia. Bleeding points were controlled with electrocautery. The abdominal wall was grasped and elevated. The fascia was incised. The abdomen was entered atraumatically. A few adhesions from the patient's previous appendectomy were encountered these were sharply dissected. An adhesive band traversing the abdomen was encountered. Small bowel was wrapped around this band. When this band was lysed, the small bowel was freed. Examination revealed dilated small bowel optimal to this "band" with decompressed bowel distal to this band. Small bowel was then examined from ligament of Treitz to the ileocecal valve. No other abnormalities were detected acted. The fluid within the small bowel was observed traversing to the cecum. Our was returned to a jejunal intra-abdominal location. The peritoneum was closed with a running interlocking 0 Vicryl. Several milliliters of 0.25% bupivacaine with 1-200,000 epinephrine was infiltrated into this layer. The fascia was closed in the midline with interrupted figure- of-eight 0 Vicryl. She will bupivacaine with epinephrine was infiltrated into this layer. The subcutaneous tissue was approximated with running 3-0 Vicryl. The skin edges were infiltrated with the bupivacaine with epinephrine solution and approximated with running subcuticular 4-0 Vicryl. The incision was sealed with Dermabond dermal adhesive. The patient was taken to recovery in stable condition. Needle, sponge, and instrument counts were correct at the close of the case. 0.25% bupivacaine with 1-200,000 units epinephrine used during this procedure, 20 mL.
[2016-12-05] MEDS ORDERED: Ondansetron 4 MG/2 ML VIAL IVP PRN (13:35)
[2016-12-05] MEDS ORDERED: Naloxone 0.4 MG/ML INJ IVP PRN (13:35)
[2016-12-05] MEDS ORDERED: ALPRAZolam 0.5 MG TABLET PO PRN (13:35)
[2016-12-05] MEDS ORDERED: Acetaminophen 325 MG TABLET PO PRN (13:35)
[2016-12-05] MEDS: Ringers Solution, Lactated 1,000 ML IVC SCH (14:20)
--- NOTE | 2016-12-05 14:42 | Anesthesia Evaluation Post Op ---
Date of Encounter: 12/05/16 Time of Encounter: 14:41 - Vital Signs Vital Signs: Vital Signs/O2 Sat, Most Current Temp Pulse Resp BP Pulse Ox 98.5 F 100 16 138/60 95 12/05/16 14:23 12/05/16 14:23 12/05/16 14:23 12/05/16 14:23 12/05/16 14:23 - Lungs Lungs: Clear Ascult./Percussion - Airway Airway: Non-obstructed - Cardiovascular Regular Rate - Mental Status Mental Status: Alert & Oriented, Answers Appropriately - Pain Pain Scale: 0 Pain Scale used: Numeric (1 - 10) - Nausea Vomiting Nausea Vomiting: Not Present - Hydration Hydration: NPO, Dunne catheter - Discharge PostOp Status: Transfer Patient to floor Attestation: I have assessed this patient and find they meet discharge criteria.
[2016-12-06] MEDS: Ringers Solution, Lactated 1,000 ML IVC SCH (04:59)
[2016-12-06 05:29] LABS: Mean Platelet Volume 10.1 fL (9.4-12.4)
[2016-12-06 05:30] LABS: Hematocrit 22.2 % (37.5-50.1); Hemoglobin 7.4 g/dL (12.9-16.9); Lymphocytes # 0.6 K/mcL (0.6-4.6); Mean Corpuscular HGB Conc 33.3 g/dL (31.6-35.5); Mean Corpuscular Hemoglobin 32.9 pg (28.0-33.3); Mean Corpuscular Volume 98.7 fL (83.0-100.0); Platelet Count 110 K/mcL (140-400); Red Blood Count 2.25 M/mcL (4.19-5.50); Red Cell Distribution Width 22.5 % (11.5-14.5)
[2016-12-06 05:37] LABS: BUN/Creatinine Ratio 25 (6-26); Blood Urea Nitrogen 24 mg/dL (8-26); Carbon Dioxide 29 mEq/L (19-29); Chloride 107 mEq/L (98-109); Glucose 89 mg/dL (70-99); Osmolality,Calculated 286 (280-300); Potassium 3.9 mEq/L (3.5-4.5); Sodium 136 mEq/L (136-145); eGFR For African Americans > 60 (> 60); eGFR For Non-African Americans > 60 (> 60)
[2016-12-06 05:52] LABS: Monocytes # 0.1 K/mcL (0.0-1.3); Neutrophils # 1.3 K/mcL (1.6-8.9); Platelet Estimate Slight Decrease (Normal)
[2016-12-06] MEDS: MetroNIDAZOLE 500 MG/100 ML 500 MG/100 ML BAG IVPB SCH (06:06)
[2016-12-06] MEDS ORDERED: Pantoprazole 40 MG VIAL IVP SCH (06:30)
[2016-12-06 06:47] VITALS: BP 118/66
--- NOTE | 2016-12-06 08:58 | Discharge Summary ---
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 (3) Abdominal pain Priority: Secondary Status: Acute Qualifiers: Abdominal location: lower abdomen, unspecified Qualified Code(s): R10.30 - Lower abdominal pain, unspecified (4) Acute kidney injury Priority: Secondary Status: Resolved (5) Multiple myeloma Priority: Secondary Status: Chronic Qualifiers: Multiple myeloma remission status: not in remission Qualified Code(s): C90.00 - Multiple myeloma not having achieved remission (6) Pancytopenia Priority: Secondary Status: Chronic (7) 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 02/01/15 [Rx] amLODIPine [Norvasc] 5 mg PO DAILY 07/16/16 [History] Omeprazole [PriLOSEC] 20 mg PO DAILY #90 cap 08/18/16 [Rx] Prochlorperazine Maleate [Compazine] 10 mg PO Q6HR PRN #30 tablet 10/21/16 [Rx] ALPRAZolam [Xanax 0.5 MG Tablet] 0.5 mg PO BID PRN #40 tablet 11/17/16 [Rx] FentaNYL PATCH [Duragesic] 25 mcg TD Q72H #10 patch.td72 11/17/16 [Rx] Acyclovir [Zovirax] 800 mg PO BID tablet 11/21/16 [Rx] Furosemide [Lasix] 20 mg PO DAILY PRN #30 tablet 11/21/16 [Rx] Lisinopril [Zestril] 10 mg PO DAILY #30 tablet 11/21/16 [Rx] Metoprolol XL (24 HR) Succ [Toprol Xl] 25 mg PO DAILY #30 tab.er.24h 11/21/16 [ Rx] Pomalidomide [Pomalyst] 2 mg PO DAILY #21 capsule 11/25/16 [Rx] Cyanocobalamin (Vitamin B-12) [Vitamin B-12] 100 mcg PO DAILY 12/02/16 [History] HYDROcodone/Acet 5/325 mg [[place]ah 5-325 mg] 1 tab PO Q6H PRN #12 tab 12/06/16 [Rx ] Allergies/Adverse Reactions: Allergies clarithromycin [From Biaxin] Adverse Reaction (Verified 09/28/16 15:36) Nausea Penicillins [PCN] Adverse Reaction (Verified 09/28/16 15:36) Fainting Sulfa (Sulfonamide Antibiotics) Adverse Reaction (Verified 09/28/16 15:36) Hives Procedures/tests Complete & Pending: Procedures Performed prior 72 hours Category Date Time Status Left Heart Cath [CL Cardiac Catheterization] [CL] Thread Marker 12/04/16 14:50 Ordered Routine ECG 12 lead ECG [ECG] Stat Y 12/04/16 15:15 Completed Date of admission: 12/03/16 00:17 Primary care physician: Sal Tomlin MD Consults: Surgery Dr. Brandt Cardiology : Dr. Desiree Cadena Onc : Dr. Rubio - Patient Status Disposition: Home, Self-Care Condition: Good - Discharge Instructions Follow Up With: Sal Tomlin MD [Primary Care Provider] - Maximino Brandt MD [Non-Partnered Physician] - Mervin Rubio MD [Partnered Physician] - - Diet and Activity Activity: increase activity as tolerated Diet: advance to your usual diet Hospital course: Mr. Craig is a 76 year old male with history of multiple myeloma, chronic back pain, remote history of appendectomy in 1965. He presents to emergency department with left lower quadrant pain going to RLQ, started y/d and gradually getting worse. He reports associated nausea but no vomiting. His last bowel movement was yesterday. He was evaluated in the emergency department and CT scan of the abdomen and pelvis reported "Fluid-filled dilation of small bowel in the mid to lower abdomen, suggesting small bowel obstruction." Pt was admitted in the hospital and placed him on NPO and continued symptomatic and supportive care. Pt was seen by surgery Dr. Brandt. We did small bowel follow through and repeat KUB X ray, his SBO was persistent and N/V worsened in next 2 days. Pt was seen by Fur Finisher Tailor for pre op clearance due to his recent Chemo induced non ischemic cardiomyopathy. Pt had LHC done 12/04/16 showed borderline severe mid LAD stenosis at 70%. Pt did to go to OR y/d and had Exploratory Celiotomy with LOAD and release SBO. Post oepratively pt has been doing well, tolerating PO intake well. Surgery cleared him to d/c home today. So will d/c him home today and recommend to f/u with PCP and Surgery as an out pt. Also f/u with Heme Onc as scheduled before. - Time Spent with Patient Total time spent providing and/or coordinating discharge services: - Constitutional Vitals: Temp Pulse Resp BP Pulse Ox 98.3 F 92 18 118/66 95 12/06/16 06:46 12/06/16 06:46 12/06/16 06:46 12/06/16 06:46 12/06/16 06:46 General appearance: Present: mild distress, A&O X 3, answers questions appropriately - Respiratory Respiratory exam: Present: CTAB. Absent: accessory muscle use, rales, rhonchi, wheezes - Cardiovascular Cardiovascular exam: Present: RRR, +S1, +S2. Absent: diastolic murmur, gallop, rubs, systolic murmur - GI/Abdominal GI/Abdominal exam: Present: normal bowel sounds, soft. Absent: rebound, rigid, tenderness Additional comments: clean incision / no signs of infection over lower abdomen - Extremities Exam Extremities exam: Absent: calf tenderness, pedal edema, tenderness - VTE Documentation of Mechanical Device: Intermittent pneumatic compression device
[2016-12-06] MEDS ORDERED: amLODIPine 5 MG TABLET PO SCH (09:00)
[2016-12-06] MEDS ORDERED: Metoprolol XL (24 HR) Succ 25 MG TAB.ER.24H PO SCH (09:00)
[2016-12-06] MEDS ORDERED: Aspirin Enteric Coated 81 MG Tablet PO SCH (09:00)
[2016-12-06] MEDS ORDERED: (Pomalidomide [Pomalyst] 2 MG) PO SCH (09:00)
--- NOTE | 2016-12-06 09:35 | General Surgery Progress Note ---
Date of Encounter: 12/06/16 Time of Encounter: 09:10 Subjective Patient reports: feels better, tolerating a regular diet, voiding w/o difficulty Narrative: General Surgery: POD#1 Patient feeling much improved; no N/V, no hiccoughs. Tolerating diet. The patient expressing desire to go home. Afebrile, 98.3; pulse 92, respirations 18, blood pressure 118/66. SPO2 on room air 95% Lungs: Clear; adequate inspiratory effort Abdomen: Soft with minimal deborah-incisional tenderness. Incision clean and dry. Active bowel sounds. Laboratories: White count 2.0 (essentially baseline) hemoglobin 7.4 with hematocrit 22.2; platelet count 110,000 Electrolyte, BUN, creatinine within normal limits. Impression: Postoperative day 1, status post open exploratory celiotomy with lysis of adhesions and release of small bowel obstruction. Patient doing well; satisfactory status for discharge home Pancytopenia - secondary to multiple myeloma - essentially stable. The diminished H&H is dilution, patient has received considerable volume IV fluid before and during surgery. This dilution is superimposed on chronic anemia d/t multiple myeloma Nursing notes record intra operative blood loss - 500 mL - this is not accurate, the operative EBL was 5 mL. Recommendations (discussed with Dr Conrad) discharge home follow up my office - , 12/10/2016. Patient to call office in AM to make followup appointment check CBC 2-3 days post discharge Patient instructions: regular diet patient may shower, wash incision with soap and water activities as tolerated, lifting limited to less than 20 # resume home meds Tylenol, motrin, advil, aleve, etc as needed for pain (home meds include Fentanyl patch) Objective Vital Signs - Last 8 Hours Temp Pulse Resp BP Pulse Ox 12/06/16 06:46 98.3 F 92 18 118/66 95 12/06/16 04:05 98.4 F 91 14 117/61 93 Intake and Output 12/05/16 12/06/16 12/06/16 23:59 07:59 15:59 Intake Total 720 / 720 1420 / 1420 Output Total 300 / 300 300 / 300 Balance 420 / 420 1120 / 1120 Intake: IV Fluids 100 / 100 1300 / 1300 Lactated Ringers 1,000 ML 1000 / 1000 @ 100 mls/hr IVC .Q10H [facility] Rx#:[id number] Cipro Premix 400 MG/200 200 / 200 ML 400 mg In 200 ml @ 200 mls/hr IVPB Q12H [facility] Rx# :[id number] Flagyl Premix 500 MG/100 100 / 100 100 / 100 ML 500 mg In 100 ml @ 100 mls/hr IVPB Q8H [facility] Rx#: [id number] Oral 620 / 620 120 / 120 Output: Urine 0 / 0 300 / 300 Catheter 300 / 300 Other: Weight 58.468 kg Blood Glucose* 106 Patient Weight 12/06/16 23:59 Weight 58.468 kg - Labs 12/06/16 05:12 12/06/16 05:12 Diabetes panel 12/06/16 Range/Units 05:12 Sodium 136 (136-145) mEq/L Potassium 3.9 (3.5-4.5) mEq/L Chloride 107 (98-109) mEq/L Carbon Dioxide 29 (19-29) mEq/L BUN 24 (8-26) mg/dL Creatinine 0.96 (0.72-1.25) mg/dL Glucose 89 (70-99) mg/dL Calcium 8.0 L (8.6-10.8) mg/dL Calcium panel 12/06/16 Range/Units 05:12 Calcium 8.0 L (8.6-10.8) mg/dL Pituitary panel 12/06/16 Range/Units 05:12 Sodium 136 (136-145) mEq/L Potassium 3.9 (3.5-4.5) mEq/L Chloride 107 (98-109) mEq/L Carbon Dioxide 29 (19-29) mEq/L BUN 24 (8-26) mg/dL Creatinine 0.96 (0.72-1.25) mg/dL Glucose 89 (70-99) mg/dL Calcium 8.0 L (8.6-10.8) mg/dL Adrenal panel 12/06/16 Range/Units 05:12 Sodium 136 (136-145) mEq/L Potassium 3.9 (3.5-4.5) mEq/L Chloride 107 (98-109) mEq/L Carbon Dioxide 29 (19-29) mEq/L BUN 24 (8-26) mg/dL Creatinine 0.96 (0.72-1.25) mg/dL Glucose 89 (70-99) mg/dL Calcium 8.0 L (8.6-10.8) mg/dL - VTE Documentation of Mechanical Device: Intermittent pneumatic compression device Consult Discharge Plan - Plan Referrals: Sal Tomlin MD [Primary Care Provider] - Maximino Brandt MD [Non-Partnered Physician] - Mervin Rubio MD [Partnered Physician] - Prescriptions: HYDROcodone/Acet 5/325 mg [Reading 5-325 mg] 1 tab PO Q6H PRN #12 tab PRN Reason: Pain
--- NOTE | 2016-12-07 06:43 | Electrocardiograph Report ---
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
--- NOTE | 2016-12-07 06:45 | Electrocardiograph Report ---
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
[2016-12-07] MEDS ORDERED: *HR* FentaNYL PATCH 25 MCG PATCH TD SCH (09:00)
--- NOTE | 2016-12-08 13:49 | Invasive Diagnostic Lab ---
Name: Van Craig Date of Study: 12/04/2016 Date: 1940 Ht: 165.0 cm /65.0 in Medical Record#: [id number] Age: 76 Wt: 58. kg / 127.87 lb Account/Order#: [id number] Gender: Male BSA: 1.63 Order #: [id number] Fluoro Dose: 173 mGy BMI: 21.3 Procedure Physician: Jules Ramírez MD, FACC Referring MD: Referring MD: Procedures Performed: LEFT HEART CATH Indications: Cardiomyopathy, Preop Impressions: Borderline severe mid LAD disease of which revascularization would not change risk of urgent bowel surgery. Non-ischemic cardiomyopathy. Acceptable Risk for bowel surgery. Recommendations: Optimal medical therapy of patient's disease. Aggressive risk factor modification. History/Risk Factors: multiple myeloma tobacco abuse chf gerd appendectomy chemotherapy Procedure Access obtained in the right Radial artery by percutaneous puncture Complications: None, None Contrast: Isovue 39ml Hemodynamics: Pressures Site Systolic/ A Wave Diastolic/ V Wave End Diastolic/ Mean HR LV 86 6 15 120 LV 109 2 10 108 AO 97 70 79 107 AO 92 68 80 108 AO 115 89 102 106 Coronary Dominance: right Lesion Findings/Interventions * Left Main Coronary Artery The LMCA is angiographically free of disease. * Left Anterior Descending There is a 60-70% stenosis in the Mid LAD. The lesion has a DEISI flow of 3. There is a 60% stenosis in the 1st Diagonal. The lesion has a DEISI flow of 3. * Circumflex There is a 40% stenosis in the Proximal Circumflex. The lesion has a DEISI flow of 3. There is a 40% stenosis in the Mid Circumflex. The lesion has a DEISI flow of 3. * Right Coronary Artery - large and dominant vessel The RCA is angiographically free of disease. The Right PDA is angiographically free of disease. Updated by Jeniffer Resendiz RN on 12/04/2016 5:10:53 PM Jules Ramírez MD, FACC electronically signed on 12/08/2016 1:41:36 PM with status of Final
== END 2016-12-06 11:49 | disposition home or self-care (01) | DRG 336 ==
LOC: EMEROO 16:02 → 3ANU 16:02
PROVIDERS: ADMIT Internal Medicine; ATTEND Family Medicine

== ENCOUNTER 2017-02-25 07:25 | Observation (INO) ==
[2017-02-25] MEDS ORDERED: *HR* Metoprolol 5 MG/5 ML VIAL IVP ONE (07:38)
--- NOTE | 2017-02-25 07:45 | Emergency Department Note ---
Disposition Clinical Impression: Atrial flutter with rapid ventricular response, Elevated troponin, Elevated brain natriuretic peptide (BNP) level Disposition: Admitted As Inpatient Condition: Fair Chest Pain HPI - General Chief Complaint: ED Chest Pain Stated Complaint: C/P Time Seen by Provider: 02/25/17 07:27 Source: patient Mode of arrival: private vehicle Limitations: no limitations Vital Signs Reviewed: Yes Nursing Notes Reviewed: Yes - History of Present Illness HPI Narrative: 76-year-old male history of cardiomyopathy, multiple myeloma who presents to the ER due to elevated heart rate and chest pain. Patient states yesterday he was checking his blood pressure at home and noticed that he was hypertensive as well as tachycardic around 159. He states that he was tachycardic once in the past back in October and was given Ativan at that time. He reports that he took his beta serjio yesterday but continued to be tachycardic. He notes that during the night he woke up with a brief episode of right-sided chest pain that resolved prior to arrival. He currently denies chest pain, lightheadedness, dizziness, weakness. Does report shortness of breath which is chronic. He denies a prior history of cardiac stents. No history of DVT or PE. No other complaints. Pt complaint: chest pain Onset (ago): hour(s) Duration: now resolved Onset: during rest Pain Location: right chest Severity: moderate Severity scale (1-10): 8 Pain Radiation: none Improves with: nothing Worsens with: nothing Associated symptoms: Reports: dyspnea (Chronic). Denies: nausea, vomiting, diaphoresis - Related Data On Oral Contraceptives: No Home Medications Medication Instructions Recorded Confirmed Multivit-Min/FA/Lycopen/Lutein 1 tab PO DAILY 01/04/15 02/25/17 [Centrum Silver Tablet] Cyanocobalamin (Vitamin B-12) 100 mcg PO DAILY 12/02/16 02/25/17 [Vitamin B-12] Phytosterol/Om-3/Dha/Epa/Fish 1 each PO DAILY 01/08/17 02/25/17 [Fish Oil-Phytosterols Softgel] Lisinopril [Zestril] 20 mg PO DAILY 02/03/17 02/25/17 Metoprolol XL (24 HR) Succ [Toprol 25 mg PO BID 02/16/17 02/25/17 Xl] Acyclovir [Zovirax] 800 mg PO DAILY 02/25/17 02/25/17 Furosemide [Lasix] 20 mg PO DAILY PRN 02/25/17 02/25/17 Previous Rx's Medication Instructions Recorded Aspirin [Adult Low Dose Aspirin EC] 81 mg PO DAILY #30 tablet. 02/01/15 Omeprazole [PriLOSEC] 20 mg PO DAILY #90 cap 08/18/16 Prochlorperazine Maleate 10 mg PO Q6HR PRN #30 tablet 10/21/16 [Compazine] HYDROcodone/Acet 5/325 mg [[place] 1 tab PO Q6H PRN #12 tab 12/06/16 5-325 mg] FentaNYL PATCH [Duragesic] 25 mcg TD Q72H #10 patch.td72 01/26/17 Pomalidomide [Pomalyst] 2 mg PO DAILY #21 capsule 02/02/17 Lactulose 10 gm PO BID PRN #300 mls 02/03/17 ALPRAZolam [Xanax 0.5 MG Tablet] 0.5 mg PO BID PRN #40 tablet 02/22/17 Allergies Allergy/AdvReac Type Severity Reaction Status Date / Time clarithromycin [From Biaxin] AdvReac Nausea Verified 02/25/17 07:33 Penicillins [PCN] AdvReac Fainting Verified 02/25/17 07:33 Sulfa (Sulfonamide AdvReac Hives Verified 02/25/17 07:33 Antibiotics) All systems ED: reviewed and negative except as stated. Constitutional: Denies: fever Cardiovascular: Reports: chest pain, palpitations Respiratory: Reports: dyspnea. Denies: cough, wheezes Gastrointestinal: Denies: abdominal pain, nausea, vomiting, diarrhea Chest Pain PMH - Past Medical History Medical history: Reports: cancer, cardiomyopathy, GERD, other Surgical history: Reports: appendectomy, other Psychiatric history: Reports: no psych history - Social History Smoking Status: Former smoker Alcohol use: Reports: none Drug use: Reports: none Physical Exam - General Limitations: no limitations General appearance: alert, in no apparent distress - Head Head exam: atraumatic, normocephalic, normal inspection - Eye Eye exam: Present: normal appearance, EOMI - ENT ENT exam: normal exam - Neck Neck exam: Present: normal inspection, full ROM - Chest Chest inspection: Present: normal inspection, symmetric chest wall rise - Respiratory Respiratory exam: Present: normal lung sounds bilaterally - Cardiovascular Cardiovascular exam: Present: normal rhythm, tachycardia, normal heart sounds - Abdominal Exam Abdominal exam: Present: soft, Non-Tender. Absent: tenderness, distention, rigidity - Extremities Exam Extremities exam: Present: normal inspection, full ROM - Expanded Upper Extremity Exam Shoulder exam: Present: normal inspection, full ROM Arm exam: Present: normal inspection, full ROM Elbow exam: Present: normal inspection, full ROM Forearm/Wrist exam: Present: normal inspection, full ROM Hand exam: Present: normal inspection, full ROM Vascular exam: Normal: radial pulse - Expanded Lower Extremity Exam Hip/Pelvis exam: Present: normal inspection, full ROM Upper leg exam: Present: normal inspection, full ROM Knee exam: Present: normal inspection, full ROM Lower leg exam: Present: normal inspection, full ROM Ankle exam: Present: normal inspection, full ROM Foot/toe exam: Present: normal inspection, full ROM Neurovascular/Tendon exam: Absent: motor deficit, sensory deficit - Neurological Exam Neurological exam: Present: alert, other (GCS 15. Nonfocal neurologic exam. Moves all extremities equally.) - Psychiatric Psychiatric exam: Present: normal affect, normal mood - Skin Skin exam: Present: warm, dry, intact, normal color Course Course Narrative: Patient seen and examined. He is currently tachycardic at 160 as well as hypertensive. EKG demonstrates likely a flutter with RVR. Denies a prior history of A. fib or atrial flutter. He reports he did not take his beta serjio this morning. We will obtain a chest x-ray as well as labs including troponin and give him a dose of IV metoprolol and reassess. - Reevaluation(s) Reevaluation #1: Patient's heart rate is still 160 after Cardizem bolus and drip. We will rebolus him with Cardizem and increased his drip. Discussed imaging and labs with the patient. Reevaluation #2: Patient's heart rate still 160 after second bolus of Cardizem. We will heparinize the patient given likely need to cardiovert. He denies any melena, hematochezia, hematuria, hemoptysis. We will page cardiology for recommendations. Time: 10:35 Reevaluation #3: I discussed the recommendations of cardiology with the patient and family. We will stop his Cardizem and start amiodarone. Patient will be admitted to the hospitalist service. - Consultations Consultation #1: I spoke with the on-call clinical biostatistician Dr. León. Discussed the patient's history , labs imaging and interventions to date. He recommends to heparinize the patient and start amiodarone and to keep the patient NPO. Vital Signs Temperature 98.5 F 02/25/17 07:30 Pulse Rate 159 02/25/17 07:30 Respiratory Rate 20 02/25/17 07:30 Blood Pressure 178/146 02/25/17 07:30 O2 Sat by Pulse Oximetry 97 02/25/17 07:30 Temperature 98.5 F 02/25/17 07:30 Pulse Rate 147 02/25/17 16:00 Respiratory Rate 20 02/25/17 16:00 Blood Pressure 130/98 02/25/17 16:00 O2 Sat by Pulse Oximetry 97 02/25/17 16:00 Oxygen Delivery Oxygen Delivery Room Air Chest Pain - MDM Narrative Medical decision making narrative: 76-year-old male presents to the ER due to tachycardia. Appears to be in a flutter with rapid ventricular response with a rate of 160. Blood pressure has been stable. He is currently asymptomatic. We attempted to give him Lopressor as well as Cardizem boluses and drip. This was unsuccessful. Case was discussed with cardiology who recommended heparinization and amiodarone. Requested the patient NPO. Admitted to the hospitalist service. - Medical Records Medical records reviewed: Yes I reviewed the patient's medical records. I reviewed the patient's medical records showing a left heart catheterization on 12/07/16 with a 6070 percent stenosis of the LAD and a 60% stenosis of the first diagonal. His most recent echocardiogram demonstrates a left ventricular ejection fraction of 30%. Followed by cardiology who believes this is most likely related to his chemotherapy for his multiple myeloma. - Lab Data Lab results reviewed: Yes I reviewed the patient's lab results. Result diagrams: 02/25/17 07:56 02/25/17 07:56 Lab Results 02/25/17 02/25/17 02/25/17 Range/Units 07:33 07:56 07:56 WBC (4.3-11.1) K/mcL RBC (4.19-5.50) M/mcL Hgb (12.9-16.9) g/dL Hct (37.5-50.1) % MCV (83.0-100.0) fL MCH (28.0-33.3) pg MCHC (31.6-35.5) g/dL RDW (11.5-14.5) % Plt Count (140-400) K/mcL MPV (9.4-12.4) fL Immature Gran % (0-4) % Seg Neutrophils % % Lymphocytes % % Monocytes % % Eosinophils % % Basophils % % Neutrophils # (1.6-8.9) K/mcL Lymphocytes # (0.6-4.6) K/mcL Monocytes # (0.0-1.3) K/mcL Eosinophils # (0.0-0.6) K/mcL Basophils # (0.0-0.2) K/mcL Nucleated RBCs/100 WBC (0) /100 WBC PT 12.1 (9.4-12.1) Seconds INR 1.1 APTT 27.1 (26.0-36.0) Seconds Sodium (136-145) mEq/L Potassium (3.5-4.5) mEq/L Chloride (98-109) mEq/L Carbon Dioxide (19-29) mEq/L BUN (8-26) mg/dL Creatinine (0.72-1.25) mg/dL Est GFR ( Amer) (> 60) Est GFR (Non-Af Amer) (> 60) BUN/Creatinine Ratio (6-26) Glucose (70-99) mg/dL POC Glucose 69 (58-89) Calculated Osmolality (280-300) Calcium (8.6-10.8) mg/dL Magnesium (1.6-2.6) mg/dL Troponin I (0-0.03) ng/mL B-Natriuretic Peptide 2727 H (0-100) pg/mL 02/25/17 02/25/17 02/25/17 Range/Units 07:56 07:56 07:56 WBC 4.0 L D (4.3-11.1) K/mcL RBC 2.98 L (4.19-5.50) M/mcL Hgb 9.8 L (12.9-16.9) g/dL Hct 30.0 L (37.5-50.1) % MCV 100.7 H (83.0-100.0) fL MCH 32.9 (28.0-33.3) pg MCHC 32.7 (31.6-35.5) g/dL RDW 18.6 H (11.5-14.5) % Plt Count 124 L (140-400) K/mcL MPV 10.3 (9.4-12.4) fL Immature Gran % 2.0 (0-4) % Seg Neutrophils % 68.2 % Lymphocytes % 16.7 % Monocytes % 8.8 % Eosinophils % 4.0 % Basophils % 0.3 % Neutrophils # 2.7 (1.6-8.9) K/mcL Lymphocytes # 0.7 (0.6-4.6) K/mcL Monocytes # 0.4 (0.0-1.3) K/mcL Eosinophils # 0.2 (0.0-0.6) K/mcL Basophils # 0.0 (0.0-0.2) K/mcL Nucleated RBCs/100 WBC 0.5 H (0) /100 WBC PT (9.4-12.1) Seconds INR APTT (26.0-36.0) Seconds Sodium 136 (136-145) mEq/L Potassium 3.6 (3.5-4.5) mEq/L Chloride 107 (98-109) mEq/L Carbon Dioxide 24 (19-29) mEq/L BUN 28 H D (8-26) mg/dL Creatinine 1.11 (0.72-1.25) mg/dL Est GFR ( Amer) > 60 (> 60) Est GFR (Non-Af Amer) > 60 (> 60) BUN/Creatinine Ratio 25 (6-26) Glucose 81 (70-99) mg/dL POC Glucose (58-89) Calculated Osmolality 287 (280-300) Calcium 8.1 L (8.6-10.8) mg/dL Magnesium 1.6 (1.6-2.6) mg/dL Troponin I 0.04 H* (0-0.03) ng/mL B-Natriuretic Peptide (0-100) pg/mL - Radiology Data Radiology results reviewed: Yes I reviewed the patient's radiology results. Chest X-Ray 02/25/17 07:41 IMPRESSION: No significant interval change. Unchanged blunting of bilateral costophrenic angle likely reflecting small bilateral pleural effusions. Small lucent lesion within distal right humerus measuring 1 cm. Patient has history of multiple myeloma. D/ / Derrell Armstrong / Derrell Armstrong Interpreting Provider: Derrell Armstrong - EKG Data EKG attestation: Yes I reviewed and interpreted this EKG. EKG results narrative: EKG demonstrates atrial flutter with rapid ventricular response with a rate of 160. Normal axis. Normal intervals. Mild 1 mm depression in lead V4 through V6 likely secondary to rate. No gross ST elevations. Changes from previous EKG include a flutter with RVR. Heart Score - Score History: Slightly Suspicious EKG: Non Specific repolarisation Disturbance Age: Greater than 65 Risk Factors: 1-2 risk factors Troponin: 1-3x normal limit HEART Score Total: 5 S.B.A.R. - S.B.A.R. Situation: Demographics, MOA Background: Presenting Complaint, Relevant PMH, Meds, & Allergies Assessment: Vital Signs, Course and respsone to treatment, Exam Concerns, Patient/Family Expectation, Pertinant Lab Results, Outstanding Labs Recommendation: Barrier(s) to disposition, Recommendation based on pending studies, treatments, or consults S.B.A.RMauricio Report Given to: Dr. Jimmy Larry Repor Time: 11:26 Attestation Statement - Attestation Attestation: I examined this patient and my medical decision-making was reviewed with the Resident Physician, Dr. Stein. I agree with the documented findings, disposition and treatment plan as described except to the extent set forth below. Patient is a 76-year-old white male with history of multiple myeloma who presents to the emergency room today with over 24 hours of palpitations and tachycardia associated with shortness of breath and transient chest pain during the night. Patient states he was awakened by some pain in his right chest wall that lasted for a few minutes and then resolved. Patient arrives here pain-free , he does endorse shortness of breath but states that he is always short of breath with his multiple myeloma. Patient is in atrial flutter at a rate of 160 when he arrives to the emergency department with a stable blood pressure. Patient is on a beta serjio at home but states he has not taken his medications yet today. I agree with patient's physical exam findings as documented. Patient's EKG shows atrial flutter without ischemic changes. Patient was placed on quality assurance monitor continuous pulse ox IV saline well was established and fluids were initiated and labs were drawn and sent as well as portal chest x-ray obtained. Patient's portal chest x-ray was unchanged from prior chest x-ray and shows trace bilateral pleural effusions in the costophrenic angles. No other acute processes seen. Labs show a positive troponin 0.04 with normal renal function. Patient findings concerning for non-STEMI with atrial flutter. For repeat management we initially attempted 5 mg of Lopressor IV. Patient had no response. We then started with Cardizem drip and bolus at 5 mics which had no response. We gave an increasing dose of Cardizem and titrated the bolus to the max with no response. Patient remains hemodynamically stable Time we consult cardiology who recommended amiodarone drip and will consult on the patient and are aware that he remains in atrial flutter at a rate in the 160s. We will admit the patient to the medicine service, this was discussed with the hospitalist who accepted the patient for admission cardiology is aware of patient's current status.
[2017-02-25 08:05] LABS: Basophils % 0.3 %; Eosinophils # 0.2 K/mcL (0.0-0.6); Hemoglobin 9.8 g/dL (12.9-16.9); Lymphocytes # 0.7 K/mcL (0.6-4.6); Lymphocytes % 16.7 %; Mean Corpuscular HGB Conc 32.7 g/dL (31.6-35.5); Mean Corpuscular Hemoglobin 32.9 pg (28.0-33.3); Mean Corpuscular Volume 100.7 fL (83.0-100.0); Mean Platelet Volume 10.3 fL (9.4-12.4); Monocytes # 0.4 K/mcL (0.0-1.3); Monocytes % 8.8 %; Neutrophils # 2.7 K/mcL (1.6-8.9); Nucleated Red Blood Cells 0.5 /100 WBC (0); Platelet Count 124 K/mcL (140-400); Red Blood Count 2.98 M/mcL (4.19-5.50); Red Cell Distribution Width 18.6 % (11.5-14.5); Segmented Neutrophils % 68.2 %
[2017-02-25 08:11] LABS: INR 1.1; Prothrombin Time 12.1 Seconds (9.4-12.1)
[2017-02-25 08:14] LABS: Activated Partial Thrombo Time 27.1 Seconds (26.0-36.0)
[2017-02-25] MEDS ORDERED: Aspirin 81 MG TAB.CHEW PO ONE (08:17)
[2017-02-25 08:18] LABS: BUN/Creatinine Ratio 25 (6-26); Calcium 8.1 mg/dL (8.6-10.8); Carbon Dioxide 24 mEq/L (19-29); Chloride 107 mEq/L (98-109); Glucose 81 mg/dL (70-99); Osmolality,Calculated 287 (280-300); Potassium 3.6 mEq/L (3.5-4.5); Sodium 136 mEq/L (136-145); eGFR For African Americans > 60 (> 60); eGFR For Non-African Americans > 60 (> 60)
[2017-02-25 08:19] LABS: Blood Urea Nitrogen 28 mg/dL (8-26)
[2017-02-25] MEDS ORDERED: *HR* Heparin 5,000 UNIT/ML VIAL IVP ONE (09:47)
[2017-02-25] MEDS ORDERED: *HR* Heparin 5,000 UNIT/ML VIAL IVP PRN ×2 (09:47)
[2017-02-25] MEDS: Heparin 25,000 UNIT/500 ML D5W 25,000 UNIT/500 ML MLS IVC SCH (10:22)
[2017-02-25] MEDS ORDERED: Amiodarone Premix 360 MG/200 ML BAG IVC ONE (11:02)
[2017-02-25] MEDS ORDERED: Amiodarone Premix 150 MG/100 ML BAG IVPB ONE (11:02)
--- NOTE | 2017-02-25 12:15 | Event Note ---
Date of Encounter: 02/25/17 Time of Encounter: 12:13 Patient and examined with nurse practitioner. Patient presents with atrial flutter 2:1 block. Onset was yesterday 6 PM. Attempts of Cardizem and beta blockers were unsuccessful so cardiology recommended starting amiodarone drip as well as heparin drip. Patient is NPO till cardiology evaluation. He is currently hemodynamically stable. He mentioned that the angiogram a few months ago showing no occlusive coronary artery disease. 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 Yet to decide on long -term anticoagulation in this patient.
[2017-02-25] MEDS ORDERED: Ibuprofen 400 MG TABLET PO PRN (12:29)
[2017-02-25] MEDS ORDERED: Naloxone 0.4 MG/ML INJ IVP PRN (12:29)
[2017-02-25] MEDS ORDERED: Furosemide 20 MG TABLET PO PRN (12:33)
[2017-02-25] MEDS ORDERED: ALPRAZolam 0.5 MG TABLET PO PRN (12:33)
--- NOTE | 2017-02-25 12:42 | Internal Med History&Physical ---
Date of Encounter: 02/25/17 Time of Encounter: 12:37 Assessment and Plan (1) Atrial flutter with rapid ventricular response Current visit: Yes Status: Acute New atrial flutter with rapid ventricular response. 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 The patient is hemodynamically stable, and in no distress resting comfortably in bed in room air. Cardiac consult; recommendation to place the patient on amiodarone, make patient nothing by mouth and anticipate cardioversion. Heparin drip Serial troponins Continue telemetry CBC, BMP in am 20 meq IV piggyback potassium placement for borderline low normal potassium of 3.6, check mag level and replace as necessary (2) Tachycardia Current visit: No Status: Acute Remains tachycardic in a flutter with RVR. However, he is hemodynamically stable and resting comfortably in bed in room air. See plan above (3) Elevated troponin Current visit: Yes Status: Acute Obtain serial troponins, patient stable ,in a flutter with RVR which has resulted in the elevated troponin. (4) Acute systolic CHF (congestive heart failure), NYHA class 2 Current visit: Yes Status: Chronic Patient has chemotherapy-induced cardiomyopathy, BNP 2727, however he does not appear to be fluid overloaded. (5) Cardiomyopathy due to chemotherapy Current visit: Yes Status: Chronic (6) Elevated brain natriuretic peptide (BNP) level Current visit: Yes Status: Acute Does not appear to have congestive heart failure, no evidence of fluid overload. BNP elevation likely the result cardiomyopathy. (7) Multiple myeloma Current visit: Yes Status: Chronic Follows with [place] oncology, still undergoing chemotherapy. Qualifiers: Multiple myeloma remission status: not in remission Qualified Code(s): C90.00 - Multiple myeloma not having achieved remission (8) DVT prophylaxis Current visit: No Status: Acute Continue heparin drip Internal Medicine - H&P: HPI Chief complaint: A flutter Admitted From: Home Plans for Post Hospital Care: Home History of present illness: Mr. Craig is a 76 year old male with a past medical history of cardio myopathy, appendectomy and multiple myeloma who presents to [facility] with tachycardia and chest pain which began yesterday evening. Patient knows that he is on a beta serjio and he has been taking it. He reports that he awoke last night with a brief episode of right chest pain and tachycardia, however he was able to go to sleep because he really symptomatically. Upon arrival to the emergency department he was found to be in a flutter with rapid ventricular response. CBC, CMP unremarkable, BNP 2727, troponin 0.04, CXR shows no pneumonia or CHF. The patient remained stable, and cardio was consulted with the suggestion for cardioversion. He has been started on heparin drip and is being admitted for further monitoring and intervention. Past Med Surg Social Fam HX - Past Medical History Medical history: cancer, cardiomyopathy, GERD, other Psychiatric history: no psych history - Past Surgical History Surgical History: appendectomy, other - Social History Smoking Status: Former smoker Smokeless Tobacco Status: No Alcohol use: none Drug use: none - Family History Grandfather Adopted: No Family Member Ethnicity: Non- Living Status: Hx Family Cancer: Yes Father Family Member Ethnicity: Non- Living Status: Hx Family Endocrine Disorder: Yes (diabetes) Mother Living Status: Hx Family Endocrine Disorder: Yes (Diabetes) Internal Medicine - H&P: Meds Multivit-Min/FA/Lycopen/Lutein [Centrum Silver Tablet] 1 tab PO DAILY 01/04/15 [ History] Aspirin [Adult Low Dose Aspirin EC] 81 mg PO DAILY #30 tablet. 02/01/15 [Rx] Omeprazole [PriLOSEC] 20 mg PO DAILY #90 cap 08/18/16 [Rx] Prochlorperazine Maleate [Compazine] 10 mg PO Q6HR PRN #30 tablet 10/21/16 [Rx] Cyanocobalamin (Vitamin B-12) [Vitamin B-12] 100 mcg PO DAILY 12/02/16 [History] HYDROcodone/Acet 5/325 mg [[place] 5-325 mg] 1 tab PO Q6H PRN #12 tab 12/06/16 [Rx ] Phytosterol/Om-3/Dha/Epa/Fish [Fish Oil-Phytosterols Softgel] 1 each PO DAILY [History] FentaNYL PATCH [Duragesic] 25 mcg TD Q72H #10 patch.td72 01/26/17 [Rx] Pomalidomide [Pomalyst] 2 mg PO DAILY #21 capsule 02/02/17 [Rx] Lactulose 10 gm PO BID PRN #300 mls 02/03/17 [Rx] Lisinopril [Zestril] 20 mg PO DAILY 02/03/17 [History] Metoprolol XL (24 HR) Succ [Toprol Xl] 25 mg PO BID 02/16/17 [History] ALPRAZolam [Xanax 0.5 MG Tablet] 0.5 mg PO BID PRN #40 tablet 02/22/17 [Rx] Acyclovir [Zovirax] 800 mg PO DAILY 02/25/17 [History] Furosemide [Lasix] 20 mg PO DAILY PRN 02/25/17 [History] 3 Allergy/AdvReac Type Severity Reaction Status Date / Time clarithromycin [From Biaxin] AdvReac Nausea Verified 02/25/17 07:33 Penicillins [PCN] AdvReac Fainting Verified 02/25/17 07:33 Sulfa (Sulfonamide AdvReac Hives Verified 02/25/17 07:33 Antibiotics) All Systems PM: A 10-system review of systems was performed and is negative for pertinent findings except as documented above in the HPI. - Constitutional Constitutional: no chills, no fever(s), no night sweats - EENT Eyes: no change in vision, no discharge, no pain, no photophobia Ears: no ear discharge, no ear pain, no tinnitus Nose, mouth and throat: no dysphagia, no nasal discharge, no neck pain, no sore throat - Cardiovascular Cardiovascular ROS IM: chest pain (Last night for a short period of time, it has subsided prior to admission), irregular heart rhythm, palpitations, no diaphoresis, no dyspnea, no dyspnea on exertion, no lightheadedness, no syncope - Respiratory Respiratory: no cough, no dyspnea, no wheezing, no excessive phlegm production - Gastrointestinal Gastrointestinal: no abdominal pain, no diarrhea, no hematemesis, no hematochezia, no melena, no nausea, no vomiting - Musculoskeletal Musculoskeletal ROS IM: no numbness, no tingling - Integumentary Integumentary IM: no rash, no unusual bruising - Neurological Neurological ROS: no confusion, no convulsions, no focal weakness, no numbness, no tingling, no tremor(s) - Hematologic/Lymphatic Hematologic/Lymphatic: no easy bruising - Constitutional Vitals: Temp Pulse Resp BP Pulse Ox 98.5 F 153 20 133/90 97 10/05/17 07:30 02/25/17 12:00 02/25/17 12:00 02/25/17 12:00 02/25/17 12:00 General appearance: Present: cooperative, A&O X 3, no acute distress, answers questions appropriately - Head Head exam: Present: atraumatic, normocephalic - Eye Eye exam: Present: EOMI, PERRL, conjuntiva pink, sclera anicteric Pupils: Present: PERRL - Neck Neck exam general surgery: Present: supple, trachea midline. Absent: lymphadenopathy - Respiratory Respiratory exam: Present: CTAB. Absent: accessory muscle use, rales, rhonchi, wheezes - Cardiovascular Cardiovascular exam: Present: RRR, +S1, +S2, tachycardia. Absent: diastolic murmur, distant heart sounds, gallop, irregular rhythm, JVD, rubs, systolic murmur - GI/Abdominal GI/Abdominal exam: Present: normal bowel sounds, soft, no peritoneal signs. Absent: distended, tenderness - Extremities Exam Extremities exam: Present: warm, radial pulses palpable and symmetrical. Absent : calf tenderness, cyanotic, pedal edema - Neurological Exam Neurological exam: Present: CN II-XII intact, oriented X3, no focal deficits. Absent: pronater drift, facial droop, speech deficit - Skin Skin exam: Present: dry, intact Internal Med - H&P Results - Labs CBC & Chem 7: 02/25/17 07:56 02/25/17 07:56 - EKG Data -: EKG Interpreted by Myself Rate: tachycardia - EKG Data Prior EKG available for review: yes Interpretation IM: other EKG comments: EKG revealed a flutter with RVR 02/25/17 12:43 - Diagnostic Studies Chest x-ray Status: image reviewed by me Additional comments: No pneumonia or pleural effusions identified. Small lucent lesion within distal right humerus measuring approximately 1 cm. Patient is a history of multiple myeloma.
[2017-02-25] MEDS ORDERED: *HR* FentaNYL PATCH 25 MCG PATCH TD SCH (12:45)
[2017-02-25 12:56] LABS: Magnesium 1.6 mg/dL (1.6-2.6)
[2017-02-25] MEDS ORDERED: Magnesium Sulfate 2 GM in D5% in Water 100 ML IVPB ONE (13:42)
--- NOTE | 2017-02-25 14:37 | Cardiology Consult Note ---
Date of Encounter: 02/25/17 Time of Encounter: 14:35 Assessment and Plan (1) Atrial flutter with rapid ventricular response Current Visit: Yes Status: Acute Per Cardiology: Apparent new onset aflutter. Denies any known hx. Remains in aflutter RVR 150' s. S/p amio bolus and on amio gtt. Asymptomatic. We'll continue to monitor. Discussed and reviewed with Dr. Ramírez, if remains a flutter with RVR tomorrow we' ll consider SUNIL/cardioversion. TSH ok. Mg = 1.6, being replaced by primary service. Regarding long-term anticoagulation, has history of multiple myeloma and pancytopenia. Current H&H stable and appears to be tolerating heparin drip. We' ll continue to monitor and address long-term anticoagulation prior to discharge. 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 Miller 11, EF 55% echo June 2016, EF 30% on echo in October 2016 with mild dilated RV with normal function, mild AR, moderate MR, moderate TR, severe pulmonary hypertension. Had abnormal stress test November 2016 with catheterization November 2016 showing borderline severe mid LAD 60-70% lesion, diagonal 1 60%, circumflex 40% with recommendations for medical management. (3) CAD (coronary artery disease) Current Visit: Yes Status: Chronic Per Cardiology: On asa, BB, ACEI. Patient has previous refused statins. Qualifiers: Coronary Disease-Associated Artery/Lesion type: [place] artery [place] vs. transplanted heart: [place] heart Associated angina: without angina Qualified Code(s): I25.10 - Atherosclerotic heart disease of [place] coronary artery without angina pectoris (4) Multiple myeloma Current Visit: Yes Status: Chronic Per Cardiology: Follows with [facility]. Patient is DNR/CCA/DNI. Qualifiers: Multiple myeloma remission status: not in remission Qualified Code(s): C90.00 - Multiple myeloma not having achieved remission Discussion w patient/family: The assessment and plan as outlined above was discussed with the patient and/or family members who expressed understanding and agreement. All questions were answered. Thank you for involving us in the care of your patient. Please call with any questions. History of Present Illness Consult date: 02/25/17 Consult reason: Aflutter with RVR Chief complaint: Fast HR History of present illness: Mr. 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 Last seen by Dr. Pryor 01/2017. Cardiology consult for apparent new onset A. fib flutter with RVR. Patient seen with family at bedside. He reports prior to yesterday evening no complaints other than baseline fatigue. He reports he completed riding his tractor mowing [place] for about 4 hours yesterday evening. He denies any symptoms. Reports was obtaining his blood pressure as instructed by cardiology to monitor and his heart rates in the 150s. He reports heart rate 160s on his home pulse oximeter. Patient reports this morning noticed heart rate continued to run in the 150s to 160s decided come to ER. Patient seen currently with a flutter with RVR at 150. He continues to deny any symptoms and denies any chest pain, shortness of breath, palpitations, dizziness. He denies any active bleeding or blood loss. Denies any recent infectious process. Denies any past history of atrial fibrillation or flutter. Past Med Surg Social Fam HX - Past Medical History Attestation: Yes The following information was validated with the patient. Source: patient, old records reviewed Medical history: cancer (Multiple myeloma), cardiomyopathy, GERD, other Psychiatric history: no psych history - Past Surgical History Surgical History: appendectomy, other - Social History Smoking Status: Former smoker Smokeless Tobacco Status: No Alcohol use: none Drug use: none - Family History Grandfather Adopted: No Family Member Ethnicity: Non- Living Status: Hx Family Cancer: Yes Father Family Member Ethnicity: Non- Living Status: Hx Family Endocrine Disorder: Yes (diabetes) Mother Living Status: Hx Family Endocrine Disorder: Yes (Diabetes) Medications and Allergies Multivit-Min/FA/Lycopen/Lutein [Centrum Silver Tablet] 1 tab PO DAILY 01/04/15 [ History] Aspirin [Adult Low Dose Aspirin EC] 81 mg PO DAILY #30 tablet. 02/01/15 [Rx] Omeprazole [PriLOSEC] 20 mg PO DAILY #90 cap 08/18/16 [Rx] Prochlorperazine Maleate [Compazine] 10 mg PO Q6HR PRN #30 tablet 10/21/16 [Rx] Cyanocobalamin (Vitamin B-12) [Vitamin B-12] 100 mcg PO DAILY 12/02/16 [History] HYDROcodone/Acet 5/325 mg [[place] 5-325 mg] 1 tab PO Q6H PRN #12 tab 12/06/16 [Rx ] Phytosterol/Om-3/Dha/Epa/Fish [Fish Oil-Phytosterols Softgel] 1 each PO DAILY [History] FentaNYL PATCH [Duragesic] 25 mcg TD Q72H #10 patch.td72 01/26/17 [Rx] Pomalidomide [Pomalyst] 2 mg PO DAILY #21 capsule 02/02/17 [Rx] Lactulose 10 gm PO BID PRN #300 mls 02/03/17 [Rx] Lisinopril [Zestril] 20 mg PO DAILY 02/03/17 [History] Metoprolol XL (24 HR) Succ [Toprol Xl] 25 mg PO BID 02/16/17 [History] ALPRAZolam [Xanax 0.5 MG Tablet] 0.5 mg PO BID PRN #40 tablet 02/22/17 [Rx] Acyclovir [Zovirax] 800 mg PO DAILY 02/25/17 [History] Furosemide [Lasix] 20 mg PO DAILY PRN 02/25/17 [History] 3 Allergy/AdvReac Type Severity Reaction Status Date / Time clarithromycin [From Biaxin] AdvReac Nausea Verified 02/25/17 07:33 Penicillins [PCN] AdvReac Fainting Verified 02/25/17 07:33 Sulfa (Sulfonamide AdvReac Hives Verified 02/25/17 07:33 Antibiotics) All Systems Review: A 10-system review of systems was performed and is negative for pertinent findings except as documented above in the HPI. - Constitutional Constitutional: fatigue - Cardiovascular Cardiovascular: as per HPI, rapid heart rate Physical Examination Vital Signs, Last 4 Hours Pulse Resp BP Pulse Ox 02/25/17 12:41 20 134/94 02/25/17 12:00 153 20 133/90 97 02/25/17 11:45 152 20 161/117 96 General: Conversant, No Apparent Distress HEENT: Atraumatic, Normocephaly, Mucus Membranes Moist Neck: No JVD, Normal carotid pulses Cardiac: Other (irregularly irregular) Lungs: Normal Breath Sounds, No Wheeze, Rales, Rhonchi Neuro: Alert and responsive, No focal deficits noted Abdomen: Soft, Non-Tender Skin: No rashes noted on visualized skin Musculoskeletal: No Chest Wall Tenderness Extremities: No Edema, Normal Pulses Results 02/25/17 07:56 02/25/17 07:56 Laboratory Tests 11/20/16 02/25/17 02/25/17 00:40 07:56 07:56 Hgb Hct Plt Count INR 1.1 Magnesium Troponin I 0.12 H* B-Natriuretic Peptide 2727 H 02/25/17 02/25/17 02/25/17 07:56 07:56 07:56 Hgb 9.8 L Hct 30.0 L Plt Count 124 L INR Magnesium 1.6 Troponin I 0.04 H* B-Natriuretic Peptide ITS Impressions Chest X-Ray 02/25/17 07:41 IMPRESSION: No significant interval change. Unchanged blunting of bilateral costophrenic angle likely reflecting small bilateral pleural effusions. Small lucent lesion within distal right humerus measuring 1 cm. Patient has history of multiple myeloma. D/ / Derrell Armstrong / Derrell Armstrong Interpreting Provider: Derrell Armstrong Intake & Output 02/22/17 02/23/17 02/24/17 02/25/17 23:59 23:59 23:59 23:59 Intake Total 147.6 / 147.6 Balance 147.6 / 147.6 Weight 58.967 kg Active Medications Hydrocodone Bitart/Acetaminophen ([place] 5-325 Mg) 1 tab PO Q6H PRN PRN Reason: Pain Stop: 08/27/17 12:34 Acyclovir (Zovirax) 800 mg PO DAILY ARTI PRN Reason: Protocol Stop: 08/28/17 09:01 Alprazolam (Xanax) 0.5 mg PO BID PRN; Protocol PRN Reason: Anxiety Stop: 08/27/17 12:34 Aspirin (Aspirin Ec) 81 mg PO DAILY ARTI Stop: 08/28/17 09:01 Cyanocobalamin (Vitamin B12) 1,000 mcg PO DAILY ARTI Stop: 08/28/17 09:01 Fentanyl (Duragesic) 25 mcg TD Q72H ARTI Stop: 08/28/17 09:01 Furosemide (Lasix) 20 mg PO DAILY PRN PRN Reason: Edema Stop: 08/27/17 12:34 Heparin Sodium (Porcine) (Heparin) 4,100 unit 70 unit/kg (4100 unit) IVP Q6HR PRN PRN Reason: SEE COMMENTS Stop: 08/27/17 09:48 Heparin Sodium (Porcine) (Heparin) 2,100 unit 35 unit/kg (2100 unit) IVP Q6H PRN PRN Reason: SEE COMMENTS Stop: 08/27/17 09:48 Heparin Sodium/Dextrose (Heparin 25,000 Unit/500 Ml D5w) 25,000 unit in 500 mls @ 16.511 mls/hr IVC .Q24H ARTI; 14 UNIT/KG/HR PRN Reason: Protocol Stop: 08/27/17 10:01 Last Admin: 02/25/17 10:22 Dose: 14 unit/kg/hr, 16.511 mls/hr Amiodarone HCl/Dextrose (Amiodarone Drip Premix 360mg/200ml) 360 mg in 200 mls @ 33.333 mls/hr IVC ONCE ONE PRN Reason: 1 MG/MIN Stop: 02/25/17 17:01 Last Admin: 02/25/17 11:40 Dose: 1 mg/min, 33.333 mls/hr Amiodarone HCl/Dextrose (Amiodarone Drip Premix 360mg/200ml) 360 mg in 200 mls @ 16.667 mls/hr IVC CONT ARTI PRN Reason: 0.5 MG/MIN Stop: 08/27/17 11:16 Magnesium Sulfate 2 gm/ (Dextrose) 104 mls @ 100 mls/hr IVPB ONCE ONE Stop: 02/25/17 14:44 Last Admin: 02/25/17 14:20 Dose: 100 mls/hr Lisinopril (Zestril) 20 mg PO DAILY [facility] PRN Reason: Protocol Stop: 08/28/17 09:01 Metoprolol Succinate (Toprol Xl) 25 mg PO BID [facility] Stop: 08/27/17 21:01 Multivitamins/Calcium (Thera M Plus) 1 tab PO DAILY [facility] Stop: 08/28/17 09:01 Naloxone HCl (Narcan) 0.4 mg IVP Q2MIN PRN PRN Reason: Opioid Reversal Stop: 08/27/17 12:30 Omeprazole (Prilosec) 20 mg PO DAILY ARTI PRN Reason: Protocol Stop: 08/28/17 09:01 Pharmacy Profile Note (Patient Taking Own Medication) 0 each PO DAILY ARTI Stop: 08/28/17 09:01 Pharmacy Profile Note (Patient Taking Own Medication) 0 each PO DAILY ARTI Stop: 08/28/17 09:01 - Imaging and Cardiology Chest Xray: report reviewed Stress Test: report reviewed Echo: report reviewed Cardiac cath: report reviewed - EKG Interpretation EKG results cardiology: personally reviewed (A flutter with RVR in the 150s), other (Average heart rate on telemetry 150, remains atrial flutter) Consult Discharge Plan - Plan Referrals: Sal Tomlin MD [Primary Care Provider] -
[2017-02-25] MEDS: Amiodarone Premix 360 MG/200 ML BAG IVC SCH (17:43)
[2017-02-25] MEDS: Metoprolol XL (24 HR) Succ 25 MG TAB.ER.24H PO SCH (19:44)
--- NOTE | 2017-02-25 21:53 | Electrocardiograph Report ---
[facility] Test Date: 2017-02-25 Pat Name: Van Craig Department: 103 Room: 08 Gender: M [employer]: AM : 1940 Requested By: Ben Stein Order Number: [id number] Reading MD: Sal Tomlin MD Measurements Intervals [place] Rate: 160 P: FL: 0 QRS: 9 QRSD: 77 T: 46 QT: 241 QTc: 330 Interpretive Statements ATRIAL FLUTTER WITH RAPID VENTRICULAR RESPONSE LEFT VENTRICULAR HYPERTROPHY AND ST-T CHANGE Electronically Signed On 02-25-2017 21:52:12 EDT by Sal Tomlin MD
[2017-02-25] MEDS: *HR* HYDROcodone/Acet 5/325 mg TABLET PO PRN (23:59)
[2017-02-26 03:26] LABS: Basophils % 0.3 %; Eosinophils # 0.1 K/mcL (0.0-0.6); Eosinophils % 4.1 %; Hematocrit 30.3 % (37.5-50.1); Hemoglobin 9.9 g/dL (12.9-16.9); Immature Granulocytes % 1.5 % (0-4); Lymphocytes # 0.7 K/mcL (0.6-4.6); Lymphocytes % 20.5 %; Mean Corpuscular HGB Conc 32.7 g/dL (31.6-35.5); Mean Platelet Volume 10.8 fL (9.4-12.4); Monocytes # 0.4 K/mcL (0.0-1.3); Monocytes % 10.9 %; Neutrophils # 2.1 K/mcL (1.6-8.9); Platelet Count 119 K/mcL (140-400); Red Cell Distribution Width 18.6 % (11.5-14.5); Segmented Neutrophils % 62.7 %
[2017-02-26 03:38] LABS: BUN/Creatinine Ratio 23 (6-26); Blood Urea Nitrogen 25 mg/dL (8-26); Calcium 7.8 mg/dL (8.6-10.8); Carbon Dioxide 25 mEq/L (19-29); Chloride 104 mEq/L (98-109); Glucose 104 mg/dL (70-99); Osmolality,Calculated 281 (280-300); Sodium 133 mEq/L (136-145); eGFR For African Americans > 60 (> 60); eGFR For Non-African Americans > 60 (> 60)
[2017-02-26] MEDS ORDERED: Saline Nasal Spray 44 ML BOTTLE NS PRN (04:11)
[2017-02-26] MEDS: Amiodarone Premix 360 MG/200 ML BAG IVC SCH (04:43)
[2017-02-26] MEDS: *HR* HYDROcodone/Acet 5/325 mg TABLET PO PRN (06:46)
[2017-02-26] MEDS: Metoprolol XL (24 HR) Succ 25 MG TAB.ER.24H PO SCH (07:45)
[2017-02-26] MEDS ORDERED: DHA PO SCH (09:00)
[2017-02-26] MEDS ORDERED: PHYTOSTEROL PO SCH (09:00)
[2017-02-26] MEDS ORDERED: Cyanocobalamin (B-12) 1,000 MCG TABLET PO SCH (09:00)
[2017-02-26] MEDS ORDERED: FISH PO SCH (09:00)
[2017-02-26] MEDS ORDERED: Lisinopril 20 MG TABLET PO SCH (09:00)
[2017-02-26] MEDS ORDERED: Multivit/Ca/Min/Fe/FA 1 TAB TABLET PO SCH (09:00)
[2017-02-26] MEDS ORDERED: *HR* FentaNYL PATCH 25 MCG PATCH TD SCH (09:00)
[2017-02-26] MEDS ORDERED: EPA PO SCH (09:00)
[2017-02-26] MEDS ORDERED: Aspirin Enteric Coated 81 MG Tablet PO SCH (09:00)
[2017-02-26] MEDS ORDERED: [UNRECOGNIZED DRUG - OTHER] PO SCH (09:00)
[2017-02-26] MEDS ORDERED: (Pomalidomide [Pomalyst] 2 MG) PO SCH (09:00)
--- NOTE | 2017-02-26 11:36 | Event Note ---
Date of Encounter: 02/26/17 Time of Encounter: 10:00 - Cardiology Event Note Patient remains a flutter on telemetry in the 130s. ECG showed atrial flutter in the 130s. Continues to be asymptomatic. Amiodarone and heparin drip infusing. Discussed and reviewed with Dr. Ramírez, will proceed with SUNIL/DC cardioversion this afternoon (around 1pm). Patient and family verbalized understanding and agrees with plan. Questions answered. Further recommendations after SUNIL and anticipated cardioversion. Patient agrees to place temporary hold on DNR/DNI status for procedure.
--- NOTE | 2017-02-26 11:43 | Pre-Sedation Evaluation ---
Pre-sedation evaluation - Pre-sedation checklist Date of procedure: 02/26/17 Procedure: carlos/dccv Recent Vitals: Last Vital Signs Temp 97.9 F 02/26/17 07:36 Pulse 140 02/26/17 11:00 Resp 14 02/26/17 11:00 BP 152/115 02/26/17 11:00 Pulse Ox 98 02/26/17 11:00 H&P (including ROS) documented in medical record: Yes Previous reaction to sedatives/anesthetics: No Dietary Status: NPO after Midnight Dentition: dentures removed ASA Classification *see protocol: CLASS II-Mild systemic disease Plan of Care: Pt appropriate candidate for procedure/moderate/conscious sedation , Risks/benefits of procedure/sedation discussed w/ patient/family
[2017-02-26] MEDS: Heparin 25,000 UNIT/500 ML D5W 25,000 UNIT/500 ML MLS IVC SCH (12:41)
[2017-02-26] MEDS ORDERED: *HR* Midazolam HCl 2 MG/2 ML VIAL ONE (13:14)
[2017-02-26] MEDS ORDERED: *HR* FentaNYL (PF) 100 MCG/2 ML VIAL ONE (13:15)
[2017-02-26] MEDS ORDERED: *HR* Midazolam HCl 5 MG/5 ML VIAL IVP ONE (14:10)
[2017-02-26] MEDS ORDERED: *HR* FentaNYL (PF) 100 MCG/2 ML VIAL IVP ONE (14:10)
[2017-02-26 15:03] VITALS: BP 126/69
--- NOTE | 2017-02-26 15:59 | Event Note ---
Date of Encounter: 02/26/17 Time of Encounter: 16:00 - Cardiology Event Note Patient remains sinus rhythm in the 70s status post SUNIL/cardioversion. I had lengthy discussion with patient and family regarding long-term anticoagulation, willis check for Eliquis 5mg PO BID was approximately $20/month. Will DC IV heparin drip and initiate (discussed with Dr. Ramírez). Cardiology will sign off, re-consult as needed, follow-up scheduled. All questions answered. Will need long-term anticoagulation and continue amiodarone 200 mg by mouth daily for at least 1 month.
[2017-02-26] MEDS ORDERED: APIXABAN 5 MG TABLET PO SCH (16:00)
--- NOTE | 2017-02-26 16:57 | Discharge Summary ---
Date of Encounter: 02/26/17 Time of Encounter: 16:55 - Discharge Medications Home Medications: Multivit-Min/FA/Lycopen/Lutein [Centrum Silver Tablet] 1 tab PO DAILY 01/04/15 [ History] Aspirin [Adult Low Dose Aspirin EC] 81 mg PO DAILY #30 tablet. 02/01/15 [Rx] Omeprazole [PriLOSEC] 20 mg PO DAILY #90 cap 08/18/16 [Rx] Prochlorperazine Maleate [Compazine] 10 mg PO Q6HR PRN #30 tablet 10/21/16 [Rx] Cyanocobalamin (Vitamin B-12) [Vitamin B-12] 100 mcg PO DAILY 12/02/16 [History] HYDROcodone/Acet 5/325 mg [[place] 5-325 mg] 1 tab PO Q6H PRN #12 tab 12/06/16 [Rx ] Phytosterol/Om-3/Dha/Epa/Fish [Fish Oil-Phytosterols Softgel] 1 each PO DAILY [History] FentaNYL PATCH [Duragesic] 25 mcg TD Q72H #10 patch.td72 01/26/17 [Rx] Lactulose 10 gm PO BID PRN #300 mls 02/03/17 [Rx] Lisinopril [Zestril] 20 mg PO DAILY 02/03/17 [History] Metoprolol XL (24 HR) Succ [Toprol Xl] 25 mg PO BID 02/16/17 [History] ALPRAZolam [Xanax 0.5 MG Tablet] 0.5 mg PO BID PRN #40 tablet 02/22/17 [Rx] Acyclovir [Zovirax] 800 mg PO DAILY 02/25/17 [History] Furosemide [Lasix] 20 mg PO DAILY PRN 02/25/17 [History] Amiodarone [Cordarone] 200 mg PO DAILY tablet 02/26/17 [Rx] Apixaban [Eliquis] 5 mg PO BID tablet 02/26/17 [Rx] Pomalidomide [Pomalyst] 2 mg PO DAILY #21 capsule 02/26/17 [Rx] Allergies/Adverse Reactions: 3 Allergy/AdvReac Type Severity Reaction Status Date / Time clarithromycin [From Biaxin] AdvReac Nausea Verified 02/25/17 07:33 Penicillins [PCN] AdvReac Fainting Verified 02/25/17 07:33 Sulfa (Sulfonamide AdvReac Hives Verified 02/25/17 07:33 Antibiotics) Procedures/tests Complete & Pending: Procedures Performed prior 72 hours Category Date Time Status ECG 12 lead ECG [ECG] Routine Y 02/26/17 09:16 Completed EV carlos guided cardioversion Routine Y 02/26/17 10:09 Completed Date of admission: 02/25/17 11:38 Primary care physician: Sal Tomlin MD Consults: 02/25/17 13:41 Consult to Nutrition [CONS] Routine Comment: Consulting Provider: NUTRITION Reason for Dietary Consult: Other - Patient Status Disposition: Home, Self-Care Condition: Fair Overall status at discharge: patient is back to baseline - Discharge Instructions Follow Up With: Sal Tomlin MD [Primary Care Provider] - Interval History: 76-year-old males presented yesterday to the emergency room with palpitations found to be in atrial flutter is one block. Patients remained in atrial flutter despite amiodarone drip. TE was performed today after which electric cardioversion was attempted and patient restored sinus rhythm. Patient has a cough and a gag reflex. Patient will be discharged home. Patient has 2 new medications eloquis in addition to amiodarone 200 mg daily. Follow up with cardiology and primary care physician after discharge. Hospital course: Mr. Craig is a 76 year old male - Time Spent with Patient Total time spent providing and/or coordinating discharge services: - Constitutional Vitals: Temp Pulse Resp BP Pulse Ox 97.8 F 76 14 126/69 99 02/26/17 15:35 02/26/17 15:00 02/26/17 15:00 02/26/17 15:00 02/26/17 15:00 General appearance: Present: cooperative, A&O X 3, no acute distress, answers questions appropriately Exam: Gen.: patient is alert oriented times 3 cardiac: normal S1 S2 no additional sounds or murmurs chest: no active wheezing or bronchial breathing abdomen soft nontender nondistended normal bowel sounds lower extremity no swelling. Neuro: no new focal deficits
--- NOTE | 2017-02-26 19:16 | Electrocardiograph Report ---
[place] [address] Test Date: 2017-02-26 Pat Name: Van Craig Department: 109 Room: [facility] Gender: M [employer]: MERCEDEZ : 1940 Requested By: Farnaz Archer Order Number: [id number] Reading MD: Jules Ramírez MD Measurements Intervals [place] Rate: 134 P: ID: 0 QRS: 7 QRSD: 77 T: 222 QT: 208 QTc: 287 Interpretive Statements ATRIAL FLUTTER WITH RAPID VENTRICULAR RESPONSE ] Electronically Signed On 02-26-2017 19:14:14 EDT by Jules Ramírez MD
[2017-02-27] MEDS ORDERED: *HR* Amiodarone 200 MG TABLET PO SCH (09:00)
== END 2017-02-26 18:01 | disposition home or self-care (01) ==
LOC: EMEROO 07:25 → 2NENU 07:25 → SUATTDRO 11:38 → ICNU 12:31
PROVIDERS: ADMIT Nurse Practitioner; ATTEND Internal Medicine

== ENCOUNTER 2017-04-03 07:52 | Inpatient (IN) ==
--- NOTE | 2017-04-03 08:01 | Emergency Department Note ---
Disposition Clinical Impression: Hypercalcemia, Acute kidney injury Anemia Qualifiers: Anemia type: unspecified type Qualified Code(s): D64.9 - Anemia, unspecified Disposition: Admitted As Inpatient Condition: Fair Referrals: Sal Tomlin MD [Primary Care Provider] - Chapincito Quach MD [Partnered Physician] - Forms: ED Satisfaction Letter Time of Disposition: 10:19 Recheck wound or abnormal lab - General Chief Complaint: ED Recheck/Abnormal Lab/Rx Stated Complaint: abdnormal labs Time Seen by Provider: 04/03/17 07:58 Source: patient, family Mode of arrival: EMS Limitations: no limitations Nursing Notes Reviewed: Yes Vital Signs Reviewed: Yes - History of Present Illness HPI Narrative: Mr. Bowles, 76-year-old male, presents from home for evaluation of abnormal labs. He was called last night by his oncologist and told to have low blood and high calcium. He has symptoms of increased fatigue and mild increased confusion per patient and his at bedside. He also notes mild dyspnea. Currently anticoagulated on eliquis. Antiplatelet of aspirin 81 Pain control via Percocet 10/325 and fentanyl patch Anxiety management via Xanax 0.5 mg twice a day when necessary Nausea control via Compazine PMH: Multiple myeloma currently under therapy, GERD PSH: Appendectomy, tonsillectomy Oncologist: Dr. Quach ROS: Positive: As above Negative: Fever, chills, nausea, vomiting, chest pains, palpitations, abdominal pains - Related Data Home Medications Medication Instructions Recorded Confirmed Multivit-Min/FA/Lycopen/Lutein 1 tab PO DAILY 01/04/15 03/24/17 [Centrum Silver Tablet] Cyanocobalamin (Vitamin B-12) 100 mcg PO DAILY 12/02/16 03/24/17 [Vitamin B-12] Phytosterol/Om-3/Dha/Epa/Fish 1 each PO DAILY 01/08/17 03/24/17 [Fish Oil-Phytosterols Softgel] Lisinopril [Zestril] 10 mg PO DAILY 02/03/17 03/24/17 Metoprolol XL (24 HR) Succ [Toprol 25 mg PO DAILY 02/16/17 03/24/17 Xl] Acyclovir [Zovirax] 800 mg PO DAILY 02/25/17 03/24/17 Furosemide [Lasix] 20 mg PO DAILY PRN 02/25/17 03/24/17 DiphenhydraMINE [Benadryl] 25 mg PO HS 03/08/17 03/24/17 Previous Rx's Medication Instructions Recorded Aspirin [Adult Low Dose Aspirin EC] 81 mg PO DAILY #30 tablet. 02/01/15 Prochlorperazine Maleate 10 mg PO Q6HR PRN #30 tablet 10/21/16 [Compazine] Lactulose 10 gm PO BID PRN #300 mls 02/03/17 Amiodarone [Cordarone] 200 mg PO DAILY tablet 02/26/17 Apixaban [Eliquis] 5 mg PO BID tablet 02/26/17 Apixaban [Eliquis] 2.5 mg PO BID #60 tablet 03/08/17 Omeprazole [PriLOSEC] 20 mg PO DAILY #90 cap 03/08/17 Oxycodone HCl/Acetaminophen 1 each PO TID PRN #60 tablet 03/08/17 [Percocet 10-325 mg Tablet] ALPRAZolam [Xanax 0.5 MG Tablet] 0.5 mg PO BID PRN #40 tablet 03/16/17 Ciprofloxacin HCl [Cipro] 1 tab PO BID #10 tablet 03/24/17 FentaNYL PATCH [Duragesic] 25 mcg TD Q72H #10 patch.td72 04/01/17 Allergies Allergy/AdvReac Type Severity Reaction Status Date / Time clarithromycin [From Biaxin] AdvReac Nausea Verified 03/24/17 12:03 Penicillins [PCN] AdvReac Fainting Verified 03/24/17 12:03 Sulfa (Sulfonamide AdvReac Hives Verified 03/24/17 12:03 Antibiotics) All systems ED: reviewed and negative except as stated. Review of Systems: As Per HPI Past Medical History - Past Medical History Medical history: Reports: cancer, cardiomyopathy, GERD, other Surgical history: Reports: appendectomy, other Psychiatric history: Reports: no psych history - Social History Smoking Status: Former smoker Smokeless Tobacco Status: No Alcohol use: Reports: none Drug use: Reports: none Physical Exam Vital Signs Reviewed General: Patient is alert, oriented, and in no acute distress. He appears thin and frail. HEENT: No facial asymmetry. Head is normocephalic and atraumatic. PERRLA, EOMI. oral mucosa moist. Trachea midline. Cardiovascular: Heart regular rate and rhythm without clicks, rubs, gallops, or murmurs. No JVD. PMI nondisplaced. Bilateral radial pulses 2/4 and equal. No pedal edema. Respiratory: Symmetric chest rise with good respiratory effort. Bilateral breath sounds are clear without wheezing, crackles, or rhonchi. Abdomen: Scaphoid. Bowel sounds present normoactive x-4 quadrants. Abdomen is soft, nondistended, and nontender. No organomegaly noted. Musculoskeletal: Muscle strength 5/5 and symmetric bilaterally in upper and lower extremities. DTRs 2/4 and symmetric bilaterally in upper and lower extremities; no clonus. Neuro: Cranial nerves II through XII without deficit. Sensation light touch intact. Psych: Patient's affect is appropriate for situation. - General Limitations: no limitations General appearance: alert, in no apparent distress Course Course Narrative: Repeat labs with addition to differentiate free from ionized calcium as well as TSH. Anticipate admission for hypercalcemia, acute kidney injury. Outpatient hemoglobin was consistent with his baseline; today's hemoglobin pending. Will type and screen. Chest x-ray shows no acute changes. Anemia: His hemoglobin today is 8.2. Consistent with 8.2 from yesterday. Down from 9.0 on 03/17. Hypercalcemia: His calcium is 13.5 today. Consistent with 13.6 from yesterday. Up from 10.0 on 03/17. Acute kidney injury: His creatinine is 1.99 today. Up from 1.89 yesterday. Up from 1.29 on 03/17. Suspect a combination of dehydration as well as kidney involvement of multiple myeloma. Spoke with on-call oncology, Dr. Sow, discussed the patient's clinical picture and laboratory findings. She has no additional recommendations on top the fluids which I 40 began. She agrees to admission to medicine with oncology following. Routine consult to oncology has been placed. Discussed the patient with the admitting hospitalist, Dr. Celis, who agrees to accept the patient for continued evaluation and management. Vital Signs Temperature 97.3 F L 04/03/17 07:53 Pulse Rate 75 04/03/17 07:53 Respiratory Rate 18 04/03/17 07:53 Blood Pressure 148/77 04/03/17 07:53 O2 Sat by Pulse Oximetry 97 04/03/17 07:53 Temperature 97.3 F L 04/03/17 07:53 Pulse Rate 71 04/03/17 09:32 Respiratory Rate 16 04/03/17 08:57 Blood Pressure 138/75 04/03/17 09:32 O2 Sat by Pulse Oximetry 98 04/03/17 09:32 Oxygen Delivery Oxygen Delivery Room Air Recheck wound or abnormal lab - Medical Records Medical records reviewed: Yes I reviewed the patient's medical records. - Lab Data Lab results reviewed: Yes I reviewed the patient's lab results. Result diagrams: 04/03/17 08:10 04/03/17 08:10 Lab Results 04/03/17 04/03/17 04/03/17 Range/Units 08:10 08:10 08:10 WBC 5.7 (4.3-11.1) K/mcL RBC 2.42 L (4.19-5.50) M/mcL Hgb 8.2 L (12.9-16.9) g/dL Hct 25.9 L (37.5-50.1) % MCV 107.0 H (83.0-100.0) fL MCH 33.9 H (28.0-33.3) pg MCHC 31.7 (31.6-35.5) g/dL RDW 17.1 H (11.5-14.5) % Plt Count 182 (140-400) K/mcL MPV 9.6 (9.4-12.4) fL Immature Gran % 0.9 (0-4) % Seg Neutrophils % 68.0 % Lymphocytes % 21.9 % Monocytes % 7.2 % Eosinophils % 1.8 % Basophils % 0.2 % Neutrophils # 3.9 (1.6-8.9) K/mcL Lymphocytes # 1.2 (0.6-4.6) K/mcL Monocytes # 0.4 (0.0-1.3) K/mcL Eosinophils # 0.1 (0.0-0.6) K/mcL Basophils # 0.0 (0.0-0.2) K/mcL PT (9.4-12.1) Seconds INR APTT (26.0-36.0) Seconds Sodium 135 L (136-145) mEq/L Potassium 3.9 (3.5-4.5) mEq/L Chloride 104 (98-109) mEq/L Carbon Dioxide 27 (19-29) mEq/L BUN 23 (8-26) mg/dL Creatinine 1.99 H (0.72-1.25) mg/dL Est GFR ( Amer) 40 L (> 60) Est GFR (Non-Af Amer) 33 L (> 60) BUN/Creatinine Ratio 12 (6-26) Glucose 113 H (70-99) mg/dL Calculated Osmolality 284 (280-300) Calcium 13.5 H* (8.6-10.8) mg/dL Ionized Calcium 2.02 H (1.15-1.35) mmol/L Total Bilirubin 0.8 (0.2-1.2) mg/dL Direct Bilirubin 0.4 (0.0-0.5) mg/dL Indirect Bilirubin 0.4 (0.0-1.2) mg/dL AST 22 (5-34) Units/L ALT 9 (0-55) Units/L Alkaline Phosphatase 62 (38-126) Units/L Serum Total Protein 10.1 H (6.0-8.3) g/dL Albumin 2.5 L (3.5-5.0) g/dL Globulin 7.6 H (2.4-3.5) g/dL Albumin/Globulin Ratio 0.3 L (1.1-2.2) Lipase 22 (8-78) Units/L TSH 0.622 (0.350-4.840) mcIU/mL Stool Occult Blood (Negative) Blood Type Antibody Screen Antibody Identification 04/03/17 04/03/17 04/03/17 Range/Units 08:27 08:27 08:50 WBC (4.3-11.1) K/mcL RBC (4.19-5.50) M/mcL Hgb (12.9-16.9) g/dL Hct (37.5-50.1) % MCV (83.0-100.0) fL MCH (28.0-33.3) pg MCHC (31.6-35.5) g/dL RDW (11.5-14.5) % Plt Count (140-400) K/mcL MPV (9.4-12.4) fL Immature Gran % (0-4) % Seg Neutrophils % % Lymphocytes % % Monocytes % % Eosinophils % % Basophils % % Neutrophils # (1.6-8.9) K/mcL Lymphocytes # (0.6-4.6) K/mcL Monocytes # (0.0-1.3) K/mcL Eosinophils # (0.0-0.6) K/mcL Basophils # (0.0-0.2) K/mcL PT 17.9 H (9.4-12.1) Seconds INR 1.6 APTT 30.7 (26.0-36.0) Seconds Sodium (136-145) mEq/L Potassium (3.5-4.5) mEq/L Chloride (98-109) mEq/L Carbon Dioxide (19-29) mEq/L BUN (8-26) mg/dL Creatinine (0.72-1.25) mg/dL Est GFR ( Amer) (> 60) Est GFR (Non-Af Amer) (> 60) BUN/Creatinine Ratio (6-26) Glucose (70-99) mg/dL Calculated Osmolality (280-300) Calcium (8.6-10.8) mg/dL Ionized Calcium (1.15-1.35) mmol/L Total Bilirubin (0.2-1.2) mg/dL Direct Bilirubin (0.0-0.5) mg/dL Indirect Bilirubin (0.0-1.2) mg/dL AST (5-34) Units/L ALT (0-55) Units/L Alkaline Phosphatase (38-126) Units/L Serum Total Protein (6.0-8.3) g/dL Albumin (3.5-5.0) g/dL Globulin (2.4-3.5) g/dL Albumin/Globulin Ratio (1.1-2.2) Lipase (8-78) Units/L TSH (0.350-4.840) mcIU/mL Stool Occult Blood Negative (Negative) Blood Type B POSITIVE Antibody Screen POSITIVE Antibody Identification DRUG INTERFERENCE - Radiology Data Radiology results reviewed: Yes I reviewed the patient's radiology results. Chest X-Ray 04/03/17 08:16 IMPRESSION: Chronic interstitial changes are stable in the chest with no acute finding. D/ / Andre Walls MD / Andre Walls MD Interpreting Provider: Andre Walls MD - EKG Data EKG attestation: Yes I reviewed and interpreted this EKG. EKG results narrative: EKG dated 04/03/17 at 08:12 TURP in a sinus rhythm with rate of 70. Normal intervals IA 151, QRS 102, QT/QTC 375/397. Nonspecific ST changes. Previous dated 02/26/2017 showing no acute ischemic changes. Attestation Statement - Attestation Attestation: Patient was seen with resident physician. I reviewed the history, physical, assessment and plan, and agree with the findings. I also personally evaluated this patient and had [id number] time with this patient. 76-year-old male presents to the emergency Department chief complaint of abnormal lab work. Patient apparently had some lab work drawn yesterday was called by his oncologist last night and told to come in for several abnormal values. Patient said that he would come in this morning as he did not want to come in the middle of night. On arrival his only complaint is of mild shortness of breath which she has had for a couple of days now. Patient also notes that he has not felt right for approximately the last 6-7 years. Is a history of multiple myeloma and is currently being treated for that. On examination vital signs are stable. ENT is unremarkable. Heart regular rhythm and rate. Lungs clear. Abdomen soft nontender. Extremities unremarkable. Neurologically intact without focal deficits. ED course we will repeat the lab work to see if there is any changes. We did review his tests from 5 days ago and also yesterday and appear that he has gotten increasingly anemic with some kidney dysfunction as well. I think the patient is likely dehydrated. We will hydrate here we will contact oncology to determine what other course of action may want to take. Labs were consistent with yesterday's findings. Patient was given IV hydration. X-ray of the chest did not reveal any acute abnormalities. EKG also did not show any acute ischemic changes. We did discuss with oncology who had no specific recommendations other than admission. We then spoke with the hospitalist service and we will admit the patient. Hemodynamically he remained stable while in the emergency department. Agree with the resident physician assessment and plan.
[2017-04-03] MEDS ORDERED: 0.9 % Sodium Chloride 1,000 ML IVC ONE (08:05)
[2017-04-03 08:19] LABS: Hematocrit 25.9 % (37.5-50.1); Hemoglobin 8.2 g/dL (12.9-16.9); Immature Granulocytes % 0.9 % (0-4); Lymphocytes % 21.9 %; Mean Corpuscular HGB Conc 31.7 g/dL (31.6-35.5); Mean Corpuscular Hemoglobin 33.9 pg (28.0-33.3); Mean Platelet Volume 9.6 fL (9.4-12.4); Monocytes % 7.2 %; Platelet Count 182 K/mcL (140-400); Red Blood Count 2.42 M/mcL (4.19-5.50); Red Cell Distribution Width 17.1 % (11.5-14.5)
[2017-04-03 08:20] LABS: Basophils % 0.2 %; Eosinophils # 0.1 K/mcL (0.0-0.6); Eosinophils % 1.8 %; Lymphocytes # 1.2 K/mcL (0.6-4.6); Monocytes # 0.4 K/mcL (0.0-1.3); Neutrophils # 3.9 K/mcL (1.6-8.9)
[2017-04-03 08:38] LABS: Albumin 2.5 g/dL (3.5-5.0); Albumin/Globulin Ratio 0.3 (1.1-2.2); Bilirubin,Direct 0.4 mg/dL (0.0-0.5); Bilirubin,Indirect 0.4 mg/dL (0.0-1.2); Bilirubin,Total 0.8 mg/dL (0.2-1.2); Globulin 7.6 g/dL (2.4-3.5); Potassium 3.9 mEq/L (3.5-4.5); Total Protein 10.1 g/dL (6.0-8.3)
[2017-04-03 08:39] LABS: INR 1.6; Prothrombin Time 17.9 Seconds (9.4-12.1)
[2017-04-03 08:42] LABS: Activated Partial Thrombo Time 30.7 Seconds (26.0-36.0)
[2017-04-03 08:44] LABS: Calcium 13.5 mg/dL (8.6-10.8)
[2017-04-03 08:58] LABS: Thyroid Stimulating Hormone 0.622 mcIU/mL (0.350-4.840)
[2017-04-03] MEDS: 0.9 % Sodium Chloride 1,000 ML IVC SCH (12:25)
[2017-04-03] MEDS ORDERED: *HR* Morphine 2 MG/ML SYRINGE IVP PRN (13:02)
[2017-04-03] MEDS ORDERED: Acetaminophen 325 MG TABLET PO PRN (13:02)
[2017-04-03] MEDS ORDERED: Naloxone 0.4 MG/ML INJ IVP PRN (13:02)
[2017-04-03] MEDS ORDERED: Ondansetron 4 MG/2 ML VIAL IVP PRN (13:02)
[2017-04-03] MEDS ORDERED: *HR* HYDROcodone/Acet 5/325 mg TABLET PO PRN (13:02)
[2017-04-03] MEDS ORDERED: Benzonatate 100 MG CAPSULE PO PRN (13:11)
[2017-04-03] MEDS ORDERED: Furosemide 20 MG TABLET PO PRN (13:13)
--- NOTE | 2017-04-03 13:57 | Internal Med History&Physical ---
<Van Andersen - Last Filed: 04/03/17 14:34> Date of Encounter: 04/03/17 Time of Encounter: 12:00 Assessment and Plan (1) Multiple myeloma Current visit: Yes Status: Chronic Hx of multiple myeloma. Pt. currently has hallmark indicators of hypercalcemia, renal insufficiency, and anemia. Oncology consult ordered and will follow pt. Qualifiers: Multiple myeloma remission status: not in remission Qualified Code(s): C90.00 - Multiple myeloma not having achieved remission (2) Hypercalcemia Current visit: Yes Status: Acute Acute hypercalcemia of 13.5 on admission today. Continuous cardiac telemetry. EKG today shows sinus rhythm with nonspecific T-wave abnormality. Repeat EKG. Oncology consult ordered and will decide use of biphosphonates or calcitonin. (3) Anemia Current visit: Yes Status: Acute Acute anemia with Hgb of 8.2 and Hct of 25.9, down from 10.2 and 30.5 on . Monitor H/H in f/u labs. Pt. previously typed and screened if transfusions become necessary. Continue pts. PO B12. Qualifiers: Anemia type: unspecified type Qualified Code(s): D64.9 - Anemia, unspecified (4) Renal insufficiency Current visit: Yes Status: Acute Acute renal insufficiency with creatinine of 1.99 and GFR 33 today on admission. Will use IV fluids judiciously and avoid nephrotoxins. Monitor I&O and daily weight. (5) Fatigue Current visit: Yes Status: Acute Acute fatigue r/t current abnormal labs and hx of multiple myeloma. Falls/ safety precautions ordered. Qualifiers: Fatigue type: due to neoplasm Qualified Code(s): R53.0 - Neoplastic ( malignant) related fatigue (6) GERD (gastroesophageal reflux disease) Current visit: Yes Status: Chronic Hx of chronic GERD. IVP Zofran Q8 PRN for nausea. IVP Protonix 40 mg daily. Qualifiers: Esophagitis presence: esophagitis presence not specified Qualified Code(s) : K21.9 - Gastro-esophageal reflux disease without esophagitis (7) CAD (coronary artery disease) Current visit: Yes Status: Chronic Hx of chronic CAD. Continuous cardiac telemetry. We will continue patient's aspirin therapy, eloquence, amiodarone, lisinopril, and metoprolol. Qualifiers: Coronary Disease-Associated Artery/Lesion type: three affiliated artery Three Affiliated vs. transplanted heart: three affiliated heart Associated angina: without angina Qualified Code(s): I25.10 - Atherosclerotic heart disease of three affiliated coronary artery without angina pectoris (8) DVT prophylaxis Current visit: Yes Status: Acute Continue patient's Eliquis for DVT prophylaxis. Internal Medicine - H&P: HPI Chief complaint: Abnormal labs Admitted From: Emergency Dept Plans for Post Hospital Care: Home History of present illness: Mr. Craig is a 76 year old male with medical history of multiple myeloma, cardiomyopathy, and GERD presents from the ED with chief complaint of abnormal lab values. Pt. reports he was told by his oncologist last night to return to the hospital due to anemia and high calcium levels. Patient reports weakness, mild confusion, cough, and mild dyspnea over the past several days. Patient also reports no bowel movement for the past 5 days. Patient denies recent illness, fever, chills, nausea, vomiting or abdominal pain, chest pain, palpitations, headache, changes in vision, unusual bleeding, numbness, tingling , lightheadedness, dizziness, pre-syncope, or syncope. Past Med Surg Social Fam HX - Past Medical History Source: patient, old records reviewed, obtained from family Medical history: cancer (Multiple myeloma), cardiomyopathy, GERD, other Psychiatric history: no psych history - Past Surgical History Surgical History: appendectomy, other - Social History Smoking Status: Former smoker Smokeless Tobacco Status: No Alcohol use: none Drug use: none Current living situation: Home, With Family Activity Level: Independent ambulation Recent Out of Country Travel Within the Last 8 Weeks: No Exposure or Possible Exposure to Illness During Travel: No - Family History Grandfather Adopted: No Race: Family Member Ethnicity: Non- Living Status: Hx Family Cancer: Yes Father Race: Family Member Ethnicity: Non- Living Status: Age at : 88 Cause of : Old age Hx Family Medical Disorders: No Mother Race: Family Member Ethnicity: Non- Living Status: Hx Family Medical Disorders: No Brother Race: Family Member Ethnicity: Non- Living Status: Age at : 48 Cause of : Was in a coma for 6 years following an accident Internal Medicine - H&P: Meds Multivit-Min/FA/Lycopen/Lutein [Centrum Silver Tablet] 1 tab PO DAILY 01/04/15 [ History] Aspirin [Adult Low Dose Aspirin EC] 81 mg PO DAILY #30 tablet. 02/01/15 [Rx] Prochlorperazine Maleate [Compazine] 10 mg PO Q6HR PRN #30 tablet 10/21/16 [Rx] Cyanocobalamin (Vitamin B-12) [Vitamin B-12] 100 mcg PO DAILY 12/02/16 [History] Phytosterol/Om-3/Dha/Epa/Fish [Fish Oil-Phytosterols Softgel] 1 cap PO DAILY [History] Lactulose 10 gm PO BID PRN #300 mls 02/03/17 [Rx] Metoprolol XL (24 HR) Succ [Toprol Xl] 25 mg PO DAILY 02/16/17 [History] Acyclovir [Zovirax] 800 mg PO DAILY 02/25/17 [History] Furosemide [Lasix] 20 mg PO DAILY PRN 02/25/17 [History] Amiodarone [Cordarone] 200 mg PO DAILY tablet 02/26/17 [Rx] Apixaban [Eliquis] 2.5 mg PO BID #60 tablet 03/08/17 [Rx] Omeprazole [PriLOSEC] 20 mg PO DAILY #90 cap 03/08/17 [Rx] ALPRAZolam [Xanax 0.5 MG Tablet] 0.5 mg PO BID PRN #40 tablet 03/16/17 [Rx] FentaNYL PATCH [Duragesic] 25 mcg TD Q72H #10 patch.td72 04/01/17 [Rx] Lisinopril [Zestril] 20 mg PO DAILY 04/03/17 [History] Oxycodone HCl/Acetaminophen [Percocet 10-325 mg Tablet] 1 tab PO TID PRN [History] Pomalidomide [Pomalyst] 2 mg PO DAILY 04/03/17 [History] 3 Allergy/AdvReac Type Severity Reaction Status Date / Time clarithromycin [From Biaxin] AdvReac Nausea Verified 03/24/17 12:03 Penicillins [PCN] AdvReac Fainting Verified 03/24/17 12:03 Sulfa (Sulfonamide AdvReac Hives Verified 03/24/17 12:03 Antibiotics) All Systems PM: A 10-system review of systems was performed and is negative for pertinent findings except as documented above in the HPI. - Constitutional Constitutional: as per HPI, weakness, no chills, no fever(s), no night sweats - EENT Eyes: no change in vision, no discharge, no pain, no photophobia Ears: no ear discharge, no ear pain, no tinnitus Nose, mouth and throat: no dysphagia, no nasal discharge, no neck pain, no sore throat - Breasts Breasts: as per HPI - Cardiovascular Cardiovascular ROS IM: as per HPI, dyspnea, dyspnea on exertion, no chest pain, no diaphoresis, no lightheadedness, no palpitations, no syncope - Respiratory Respiratory: as per HPI, cough, dyspnea, dyspnea on exertion - Gastrointestinal Gastrointestinal: as per HPI, constipation, no abdominal pain, no diarrhea, no hematemesis, no hematochezia, no melena, no nausea, no vomiting - Genitourinary Genitourinary ROS male: as per HPI - Musculoskeletal Musculoskeletal ROS IM: no numbness, no tingling - Integumentary Integumentary IM: no rash, no unusual bruising - Neurological Neurological ROS: no confusion, no convulsions, no focal weakness, no numbness, no tingling, no tremor(s) - Psychiatric Psychiatric: as per HPI - Endocrine Endocrine IM: as per HPI - Hematologic/Lymphatic Hematologic/Lymphatic: no easy bruising - Allergic/Immunologic Allergic/Immunologic: as per HPI - Constitutional Vitals: Temp Pulse Resp BP Pulse Ox 97.3 F L 64 15 154/94 96 04/03/17 11:06 04/03/17 11:06 04/03/17 11:06 04/03/17 11:06 04/03/17 11:06 General appearance: Present: cooperative, mild distress, A&O X 3, underweight, answers questions appropriately - Head Head exam: Present: atraumatic, normal inspection, normocephalic - Eye Eye exam: Present: PERRL, conjuntiva pink, sclera anicteric Pupils: Present: PERRL - ENT ENT exam: Present: normal exam, normal external ear exam - Neck Neck exam general surgery: Present: normal inspection, supple, trachea midline. Absent: lymphadenopathy - Respiratory Respiratory exam: Present: CTAB. Absent: accessory muscle use, rales, rhonchi, wheezes - Cardiovascular Cardiovascular exam: Present: RRR, +S1, +S2. Absent: diastolic murmur, gallop, rubs, systolic murmur - GI/Abdominal GI/Abdominal exam: Present: normal bowel sounds, soft, no peritoneal signs. Absent: distended, tenderness - Rectal Rectal exam: Present: deferred - Additional comments: exam deferred. - Extremities Exam Extremities exam: Present: warm, radial pulses palpable and symmetrical. Absent : calf tenderness, cyanotic, pedal edema - Back Exam Back exam: Present: normal inspection - Neurological Exam Neurological exam: Present: CN II-XII intact, oriented X3, no focal deficits. Absent: pronater drift, facial droop, speech deficit - Psychiatric Psychiatric exam: Present: normal affect, normal mood - Skin Skin exam: Present: dry, intact Internal Med - H&P Results - Labs CBC & Chem 7: 04/03/17 08:10 04/03/17 08:10 - EKG Data EKG shows normal: sinus rhythm - EKG Data Prior EKG available for review: yes EKG comments: 04/03/17 14:16 EKG dated 02/26/17 shows atrial flutter with rapid ventricular response. EKG dated 04/03/17 shows sinus rhythm with nonspecific T-wave abnormality. Borderline ECG. - Diagnostic Studies Chest x-ray Additional comments: Impressions Chest X-Ray 04/03/17 08:16 IMPRESSION: Chronic interstitial changes are stable in the chest with no acute finding. D/ / Andre Walls MD / Andre Walls MD Interpreting Provider: Andre Walls MD <Gibran Celis P - Last Filed: 04/03/17 18:24> Date of Encounter: 04/03/17 Internal Medicine - H&P: HPI History of present illness: Mr. Craig is a 76 year old male All Systems PM: A 10-system review of systems was performed and is negative for pertinent findings except as documented above in the HPI. - Constitutional Vitals: Temp Pulse Resp BP Pulse Ox 97.9 F 73 16 137/57 98 04/03/17 14:57 04/03/17 14:57 04/03/17 15:52 04/03/17 14:57 04/03/17 15:52 Internal Med - H&P Results - Labs CBC & Chem 7: 04/03/17 08:10 04/03/17 08:10 - Attending Attestation I examined this patient and my medical decision-making was reviewed with the Resident Physician/TRANSPORTATION MECHANIC. I agree with the documented findings, disposition and treatment plan as described except to the extent set forth below. agree with below Assessment and plan will follow recommendations from Oncology.
[2017-04-03] MEDS: Ipratropium/Albuterol Neb 3 ML IH SCH ×2 (15:52→22:08)
--- NOTE | 2017-04-03 17:40 | Oncology Inp Consult Note ---
Date of Encounter: 04/03/17 Time of Encounter: 17:00 Assessment and Plan (1) Hypercalcemia Status: Acute Assessment and plan: Secondary to multiple myeloma, status post multiple prior therapies including autologous stem cell transplantation, currently on? Velcade versus colchicine mild regimen last treatment was few weeks ago. M spike increasing at 3.3 from late last month. MRI of the brain February 2017 was negative for acute changes. IV hydration, furosemide, pamidronate 60 mg IV dose--ordered. Monitor labs daily. Chronic back pain currently denies any pain is on morphine and fentanyl. Serious PRBC for symptomatic anemia, anemia likely related to myeloma status post bone marrow biopsy this year showed 80% plasma cells. Plan reviewed with patient bedside in detail. - Data of Consult Requesting Physician: Dee Rausch CNP Primary Care Provider: Sal Tomlin MD Family Provider: Sal Tomlin MD - Consult Narrative Reason for consult: hyperca, myeloma History of present illness: 76 yo male with IgG kappa multiple myeloma, stage IIIB. 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 Last bortezomib was beginning of . Zometa was given . Patient had prior hospitalization with hypercalcemia renal insufficiency , he is hospitalized with a serum calcium of around 13. Per family patient also has on and off episodes of confusion. Denies any pain he takes Xanax and is able to sleep well. 14 point review of systems is negative otherwise. MR/MR head/brain wo/w con on 03/23/17, no ac findings or ischemia. CXR no ac findings. M pt spike 03/17 was at 3.3g Past Med Surg Social Fam HX - Past Medical History Medical history: cancer (Multiple myeloma), cardiomyopathy, GERD, other Psychiatric history: no psych history - Past Surgical History Surgical History: appendectomy, other - Social History Smoking Status: Former smoker Smokeless Tobacco Status: No Alcohol use: none Drug use: none - Family History Grandfather Adopted: No Race: Family Member Ethnicity: Non- Living Status: Hx Family Cancer: Yes Father Race: Family Member Ethnicity: Non- Living Status: Age at : 88 Cause of : Old age Hx Family Endocrine Disorder: Yes (diabetes) Hx Family Medical Disorders: No Mother Race: Family Member Ethnicity: Non- Living Status: Hx Family Endocrine Disorder: Yes (Diabetes) Hx Family Medical Disorders: No Brother Race: Family Member Ethnicity: Non- Living Status: Age at : 48 Cause of : Was in a coma for 6 years following an accident Medications and Allergies Multivit-Min/FA/Lycopen/Lutein [Centrum Silver Tablet] 1 tab PO DAILY 01/04/15 [ History] Aspirin [Adult Low Dose Aspirin EC] 81 mg PO DAILY #30 tablet. 02/01/15 [Rx] Prochlorperazine Maleate [Compazine] 10 mg PO Q6HR PRN #30 tablet 10/21/16 [Rx] Cyanocobalamin (Vitamin B-12) [Vitamin B-12] 100 mcg PO DAILY 12/02/16 [History] Phytosterol/Om-3/Dha/Epa/Fish [Fish Oil-Phytosterols Softgel] 1 cap PO DAILY [History] Lactulose 10 gm PO BID PRN #300 mls 02/03/17 [Rx] Metoprolol XL (24 HR) Succ [Toprol Xl] 25 mg PO DAILY 02/16/17 [History] Acyclovir [Zovirax] 800 mg PO DAILY 02/25/17 [History] Furosemide [Lasix] 20 mg PO DAILY PRN 02/25/17 [History] Amiodarone [Cordarone] 200 mg PO DAILY tablet 02/26/17 [Rx] Apixaban [Eliquis] 2.5 mg PO BID #60 tablet 03/08/17 [Rx] Omeprazole [PriLOSEC] 20 mg PO DAILY #90 cap 03/08/17 [Rx] ALPRAZolam [Xanax 0.5 MG Tablet] 0.5 mg PO BID PRN #40 tablet 03/16/17 [Rx] FentaNYL PATCH [Duragesic] 25 mcg TD Q72H #10 patch.td72 04/01/17 [Rx] Lisinopril [Zestril] 20 mg PO DAILY 04/03/17 [History] Oxycodone HCl/Acetaminophen [Percocet 10-325 mg Tablet] 1 tab PO TID PRN [History] Pomalidomide [Pomalyst] 2 mg PO DAILY 04/03/17 [History] 3 Allergy/AdvReac Type Severity Reaction Status Date / Time clarithromycin [From Biaxin] AdvReac Nausea Verified 03/24/17 12:03 Penicillins [PCN] AdvReac Fainting Verified 03/24/17 12:03 Sulfa (Sulfonamide AdvReac Hives Verified 03/24/17 12:03 Antibiotics) Constitutional: Present: lethargy, weakness Cardiovascular: Present: as per HPI Gastrointestinal: Present: as per HPI Neurological: Present: confusion Oncology - Exam - Constitutional Vitals: Temp Pulse Resp BP Pulse Ox 97.9 F 73 16 137/57 98 04/03/17 14:57 04/03/17 14:57 04/03/17 15:52 04/03/17 14:57 04/03/17 15:52 General appearance: thin - Head Head exam: Present: atraumatic, normal inspection - Eye Eye exam: Present: sclera anicteric - ENT ENT exam: Present: normal exam - Respiratory Respiratory exam: Present: CTAB - Cardiovascular Cardiovascular exam: Present: +S1, +S2 - GI/Abdominal GI/Abdominal exam: Present: normal bowel sounds, soft - Extremities Exam Extremities exam: Present: normal inspection - Neurological Exam Neurological exam: Present: altered, CN II-XII intact, oriented X3 - Psychiatric Psychiatric exam: Present: normal mood - Skin Skin exam: Present: dry Oncology - Results Labs: M spike, 03/17/17 Hgb 8.2 ca 13.5 cr 1.9 Consult Discharge Plan - Plan Referrals: Sal Tomlin MD [Primary Care Provider] -
[2017-04-03] MEDS: Pantoprazole 40 MG VIAL IVP SCH (18:39)
[2017-04-03 19:31] LABS: Calcium 12.8 mg/dL (8.6-10.8); Potassium 3.9 mEq/L (3.5-4.5)
[2017-04-03] MEDS: APIXABAN 2.5 MG TABLET PO SCH (22:10)
[2017-04-03] MEDS: Lactulose Oral Soln 20 GM/30 ML UDC PO SCH (22:10)
[2017-04-04] MEDS: Ipratropium/Albuterol Neb 3 ML IH SCH ×4 (03:21→22:39)
[2017-04-04 04:12] LABS: Eosinophils # 0.1 K/mcL (0.0-0.6); Eosinophils % 1.7 %; Hematocrit 23.1 % (37.5-50.1); Hemoglobin 7.5 g/dL (12.9-16.9); Immature Granulocytes % 0.7 % (0-4); Lymphocytes # 1.2 K/mcL (0.6-4.6); Lymphocytes % 21.6 %; Mean Corpuscular HGB Conc 32.5 g/dL (31.6-35.5); Mean Corpuscular Hemoglobin 34.1 pg (28.0-33.3); Mean Platelet Volume 10.6 fL (9.4-12.4); Monocytes # 0.4 K/mcL (0.0-1.3); Monocytes % 8.1 %; Neutrophils # 3.7 K/mcL (1.6-8.9); Platelet Count 154 K/mcL (140-400); Red Cell Distribution Width 16.6 % (11.5-14.5); Segmented Neutrophils % 67.9 %
[2017-04-04 04:26] LABS: Hemoglobin A1C 5.1 %
[2017-04-04] MEDS: 0.9 % Sodium Chloride 1,000 ML IVC SCH ×2 (04:33→12:59)
[2017-04-04 04:41] LABS: Albumin 2.3 g/dL (3.5-5.0); Albumin/Globulin Ratio 0.4 (1.1-2.2); Bilirubin,Total 0.8 mg/dL (0.2-1.2); Calcium 12.3 mg/dL (8.6-10.8); Globulin 6.5 g/dL (2.4-3.5); Magnesium 1.5 mg/dL (1.6-2.6); Phosphorous 2.8 mg/dL (2.3-4.7); Total Protein 8.8 g/dL (6.0-8.3)
[2017-04-04] MEDS: APIXABAN 2.5 MG TABLET PO SCH ×2 (10:09→19:57)
[2017-04-04] MEDS: Aspirin Enteric Coated 81 MG Tablet PO SCH (10:09)
[2017-04-04] MEDS: Pantoprazole 40 MG VIAL IVP SCH (10:09)
[2017-04-04] MEDS: Lisinopril 20 MG TABLET PO SCH (10:09)
[2017-04-04] MEDS: Multivit/Ca/Min/Fe/FA 1 TAB TABLET PO SCH (10:09)
[2017-04-04] MEDS: Metoprolol XL (24 HR) Succ 25 MG TAB.ER.24H PO SCH (10:09)
[2017-04-04] MEDS: Cyanocobalamin (B-12) 1,000 MCG TABLET PO SCH (10:09)
[2017-04-04] MEDS: Lactulose Oral Soln 20 GM/30 ML UDC PO SCH ×2 (10:09→19:57)
[2017-04-04] MEDS: *HR* Amiodarone 200 MG TABLET PO SCH (10:09)
[2017-04-04] MEDS: EPA PO SCH (10:10)
[2017-04-04] MEDS: (Pomalidomide [Pomalyst] 2 MG) PO SCH (10:10)
[2017-04-04] MEDS: PHYTOSTEROL PO SCH (10:10)
[2017-04-04] MEDS: DHA PO SCH (10:10)
[2017-04-04] MEDS: FISH PO SCH (10:10)
[2017-04-04] MEDS: [UNRECOGNIZED DRUG - OTHER] PO SCH (10:10)
[2017-04-04] MEDS: ALPRAZolam 0.5 MG TABLET PO PRN ×2 (10:22→20:35)
[2017-04-04] MEDS: Furosemide 20 MG/2 ML VIAL IVP SCH (12:58)
--- NOTE | 2017-04-04 13:29 | Internal Med Progress Note ---
Date of Encounter: 04/04/17 Time of Encounter: 11:00 - Assessment and plan (1) Hypomagnesemia Current Visit: Yes Status: Acute Assessment and plan: Replete with IV magnesium. (2) DVT prophylaxis Current Visit: Yes Status: Acute Assessment and plan: Continue with Eliquis (3) Hypercalcemia Current Visit: Yes Status: Acute Assessment and plan: Increase IV fluid rate to 125. Add IV Lasix. Monitor calcium level. Monitor kidney function closely. Status post administration of pamidronate. (4) Acute kidney injury Current Visit: No Status: Resolved Assessment and plan: Continue with IV fluids normal saline at 125. Avoid nephrotoxins. (5) Multiple myeloma Current Visit: Yes Status: Chronic Assessment and plan: Appreciate oncology recommendations. Qualifiers: Multiple myeloma remission status: not in remission Qualified Code(s): C90.00 - Multiple myeloma not having achieved remission - Subjective Interval history: Patient was sent from the office for evaluation of elevated calcium. He reports generalized weakness and constipation. His symptoms have improved over the last 24 hours with administration of IV fluids. He continues to report generalized weakness. No chest pain or shortness of breath. - Constitutional Vitals: Temp Pulse Resp BP Pulse Ox 98 F 115 18 150/58 90 04/04/17 11:49 04/04/17 11:49 04/04/17 11:49 04/04/17 11:49 04/04/17 11:49 General appearance: Present: cooperative, mild distress, A&O X 3, underweight, answers questions appropriately - Respiratory Respiratory exam: Present: CTAB. Absent: accessory muscle use, rales, rhonchi, wheezes - Cardiovascular Cardiovascular exam: Present: RRR, +S1, +S2. Absent: diastolic murmur, gallop, rubs, systolic murmur - GI/Abdominal GI/Abdominal exam: Present: normal bowel sounds, soft, no peritoneal signs. Absent: distended, tenderness - Extremities Exam Extremities exam: Present: warm, radial pulses palpable and symmetrical. Absent : calf tenderness, cyanotic, pedal edema - Skin Skin exam: Present: dry, intact Internal Medicine: Result - Labs CBC & Chem 7: 04/04/17 03:36 04/04/17 03:36 Labs: Short CBC 04/04/17 Range/Units 03:36 WBC 5.4 (4.3-11.1) K/mcL Hgb 7.5 L (12.9-16.9) g/dL Hct 23.1 L (37.5-50.1) % Plt Count 154 (140-400) K/mcL Neutrophils # 3.7 (1.6-8.9) K/mcL BMP 04/03/17 04/04/17 19:13 03:36 Sodium 133 L 133 L Potassium 3.9 4.0 Chloride 105 107 Carbon Dioxide 29 26 BUN 21 18 Creatinine 1.87 H 1.77 H Glucose 111 H 98 Calcium 12.8 H 12.3 H Liver Function 04/04/17 Range/Units 03:36 Total Bilirubin 0.8 (0.2-1.2) mg/dL AST 20 (5-34) Units/L ALT 6 (0-55) Units/L Alkaline Phosphatase 54 (38-126) Units/L Albumin 2.3 L (3.5-5.0) g/dL - ABG Interpretation ABG results: PT/INR, D-dimer PT 17.9 Seconds (9.4-12.1) H 04/03/17 08:27 Consult Discharge Plan - Plan Referrals: Sal Tomlin MD [Primary Care Provider] -
[2017-04-04] MEDS ORDERED: *HR* FentaNYL PATCH 25 MCG PATCH TD SCH (14:00)
--- NOTE | 2017-04-04 17:57 | Electrocardiograph Report ---
[place] [id number] Test Date: 2017-04-03 Pat Name: Van Craig Department: 103 Room: 3B34 Gender: M Hospital Receiving Clerk: JESSICA : 1940 Requested By: Jerrod St Order Number: [id number] Reading MD: Jules Ramírez MD Measurements Intervals Crocker Rate: 70 P: 59 ME: 151 QRS: 41 QRSD: 102 T: 74 QT: 375 QTc: 397 Interpretive Statements SINUS RHYTHM Electronically Signed On 04-04-2017 17:55:49 EST by Jules Ramírez MD
[2017-04-05] MEDS: 0.9 % Sodium Chloride 1,000 ML IVC SCH ×5 (02:44→20:20)
[2017-04-05 04:00] LABS: Basophils % 0.2 %; Eosinophils % 0.3 %; Hematocrit 20.3 % (37.5-50.1); Hemoglobin 6.7 g/dL (12.9-16.9); Immature Granulocytes % 1.7 % (0-4); Mean Corpuscular Hemoglobin 34.5 pg (28.0-33.3); Mean Corpuscular Volume 104.6 fL (83.0-100.0); Mean Platelet Volume 9.8 fL (9.4-12.4); Monocytes # 0.4 K/mcL (0.0-1.3); Monocytes % 7.3 %; Neutrophils # 4.5 K/mcL (1.6-8.9); Platelet Count 136 K/mcL (140-400); Red Blood Count 1.94 M/mcL (4.19-5.50); Red Cell Distribution Width 17.2 % (11.5-14.5); Segmented Neutrophils % 73.5 %
[2017-04-05] MEDS: Ipratropium/Albuterol Neb 3 ML IH SCH ×4 (04:04→22:09)
[2017-04-05 04:16] LABS: Albumin/Globulin Ratio 0.3 (1.1-2.2); Bilirubin,Total 0.5 mg/dL (0.2-1.2); Calcium 10.7 mg/dL (8.6-10.8); Globulin 6.3 g/dL (2.4-3.5); Potassium 3.8 mEq/L (3.5-4.5); Total Protein 8.3 g/dL (6.0-8.3)
[2017-04-05] MEDS: Furosemide 20 MG/2 ML VIAL IVP SCH (08:08)
[2017-04-05] MEDS: Metoprolol XL (24 HR) Succ 25 MG TAB.ER.24H PO SCH (08:08)
[2017-04-05] MEDS: APIXABAN 2.5 MG TABLET PO SCH ×2 (08:09→20:13)
[2017-04-05] MEDS: Multivit/Ca/Min/Fe/FA 1 TAB TABLET PO SCH (08:09)
[2017-04-05] MEDS: Cyanocobalamin (B-12) 1,000 MCG TABLET PO SCH (08:09)
[2017-04-05] MEDS: Lisinopril 20 MG TABLET PO SCH (08:09)
[2017-04-05] MEDS: Aspirin Enteric Coated 81 MG Tablet PO SCH (08:09)
[2017-04-05] MEDS: *HR* Amiodarone 200 MG TABLET PO SCH (08:09)
[2017-04-05] MEDS: Pantoprazole 40 MG VIAL IVP SCH (08:10)
[2017-04-05] MEDS: (Pomalidomide [Pomalyst] 2 MG) PO SCH (08:10)
[2017-04-05] MEDS: FISH PO SCH (08:10)
[2017-04-05] MEDS: EPA PO SCH (08:10)
[2017-04-05] MEDS: Lactulose Oral Soln 20 GM/30 ML UDC PO SCH ×2 (08:10→20:13)
[2017-04-05] MEDS: DHA PO SCH (08:10)
[2017-04-05] MEDS: [UNRECOGNIZED DRUG - OTHER] PO SCH (08:10)
[2017-04-05] MEDS: PHYTOSTEROL PO SCH (08:10)
[2017-04-05] MEDS ORDERED: Acetaminophen 325 MG TABLET PO ONE (10:03)
[2017-04-05] MEDS ORDERED: 0.9 % Sodium Chloride 250 ML ONE ×2 (11:35→15:14)
[2017-04-05 13:49] LABS: Bilirubin,Urine Negative (Negative); Blood,Urine Large (Negative); Clarity,Urine Cloudy (Clear); Color,Urine Yellow (Yellow); Glucose,Urine (UA) Normal (Normal); Ketones,Urine Negative (Negative); Leukocyte Esterase,Urine Negative (Negative); Nitrite,Urine Negative (Negative); Protein,Urine Trace mg/dL (Neg-Trace); Specific Gravity,Urine 1.015 (1.010-1.025); Urobilinogen,Urine Normal (Normal)
[2017-04-05 13:51] LABS: Bacteria,Urine None Seen per hpf (None-Few); Hyaline Casts,Urine None Seen per lpf (None-Few); RBC,Urine TNTC per hpf (0-3); Squamous Epithelial Cell,Urine Many per lpf (None-Few); WBC,Urine 0-3 per hpf (0-3)
--- NOTE | 2017-04-05 19:04 | Internal Med Progress Note ---
Date of Encounter: 04/05/17 Time of Encounter: 10:00 - Assessment and plan (1) Hypomagnesemia Current Visit: Yes Status: Acute Assessment and plan: Replete with IV magnesium. (2) DVT prophylaxis Current Visit: Yes Status: Acute Assessment and plan: Continue with Eliquis (3) Hypercalcemia Current Visit: Yes Status: Acute Assessment and plan: Calcium Level Trending down. Corrected Calcium Is Still Elevated. Decrease IV fluid rate to 75. Stop IV Lasix. Monitor calcium level. Monitor kidney function closely. Status post administration of pamidronate. (4) Acute kidney injury Current Visit: No Status: Resolved Assessment and plan: Continue with IV fluids normal saline at 125. Avoid nephrotoxins. (5) Multiple myeloma Current Visit: Yes Status: Chronic Assessment and plan: Appreciate oncology recommendations. Qualifiers: Multiple myeloma remission status: not in remission Qualified Code(s): C90.00 - Multiple myeloma not having achieved remission (6) Urinary retention Current Visit: Yes Status: Acute Assessment and plan: This is a new problem for today. Patient reports that he has been told he had enlarged prostate in the past. We will place Dunne catheter. Obtain urinalysis to rule out infection. Start Flomax. We will obtain kidney and bladder ultrasound to rule out postobstructive nephropathy given his renal failure. - Subjective Interval history: 04/05/2017: Patient reports inability to urinate. He was bladder scanned and had 500 residual. He had a straight catheter and later during the day he again had greater than 500 residual. 04/04/2017: Patient was sent from the office for evaluation of elevated calcium. He reports generalized weakness and constipation. His symptoms have improved over the last 24 hours with administration of IV fluids. He continues to report generalized weakness. No chest pain or shortness of breath. - Constitutional Vitals: Temp Pulse Resp BP Pulse Ox 98.5 F 90 16 138/63 96 04/05/17 15:37 04/05/17 15:37 04/05/17 16:14 04/05/17 15:37 04/05/17 16:14 General appearance: Present: cooperative, mild distress, A&O X 3, underweight, answers questions appropriately - Neck Neck exam general surgery: Present: supple, trachea midline. Absent: lymphadenopathy - Respiratory Respiratory exam: Present: CTAB. Absent: accessory muscle use, rales, rhonchi, wheezes - Cardiovascular Cardiovascular exam: Present: RRR, +S1, +S2. Absent: diastolic murmur, gallop, rubs, systolic murmur - GI/Abdominal GI/Abdominal exam: Present: normal bowel sounds, soft, tenderness (Lower abdominal tenderness to palpation), no peritoneal signs. Absent: distended - Extremities Exam Extremities exam: Present: warm, radial pulses palpable and symmetrical. Absent : calf tenderness, cyanotic, pedal edema - Skin Skin exam: Present: dry, intact Internal Medicine: Result - Labs CBC & Chem 7: 04/05/17 03:44 04/05/17 03:44 Labs: Short CBC 04/05/17 Range/Units 03:44 WBC 6.1 (4.3-11.1) K/mcL Hgb 6.7 L (12.9-16.9) g/dL Hct 20.3 L (37.5-50.1) % Plt Count 136 L (140-400) K/mcL Neutrophils # 4.5 (1.6-8.9) K/mcL BMP 04/05/17 03:44 Sodium 134 L Potassium 3.8 Chloride 108 Carbon Dioxide 24 BUN 18 Creatinine 1.62 H Glucose 94 Calcium 10.7 Liver Function 04/05/17 Range/Units 03:44 Total Bilirubin 0.5 (0.2-1.2) mg/dL AST 17 (5-34) Units/L ALT 7 (0-55) Units/L Alkaline Phosphatase 48 (38-126) Units/L Albumin 2.0 L (3.5-5.0) g/dL Urine 04/05/17 Range/Units 13:00 Urine Color Yellow (Yellow) Urine Clarity Cloudy A (Clear) Urine pH 7.0 (5.0-8.0) pH Units Ur Specific Harlan 1.015 (1.010-1.025) Urine Protein Trace (Neg-Trace) mg/dL Urine Glucose (UA) Normal (Normal) mg/dL - ABG Interpretation ABG results: PT/INR, D-dimer PT 17.9 Seconds (9.4-12.1) H 04/03/17 08:27 Consult Discharge Plan - Plan Referrals: Sal Tomlin MD [Primary Care Provider] -
[2017-04-05 20:33] LABS: Hematocrit 26.3 % (37.5-50.1)
[2017-04-05 20:34] LABS: Hemoglobin 8.8 g/dL (12.9-16.9)
[2017-04-06] MEDS: Ipratropium/Albuterol Neb 3 ML IH SCH ×2 (04:01→10:45)
[2017-04-06 05:39] LABS: Basophils % 0.2 %; Eosinophils # 0.1 K/mcL (0.0-0.6); Hemoglobin 8.9 g/dL (12.9-16.9); Immature Granulocytes % 1.4 % (0-4); Lymphocytes # 1.2 K/mcL (0.6-4.6); Lymphocytes % 19.6 %; Mean Corpuscular HGB Conc 34.2 g/dL (31.6-35.5); Mean Corpuscular Hemoglobin 33.1 pg (28.0-33.3); Mean Corpuscular Volume 96.7 fL (83.0-100.0); Mean Platelet Volume 10.2 fL (9.4-12.4); Monocytes # 0.5 K/mcL (0.0-1.3); Monocytes % 7.2 %; Neutrophils # 4.4 K/mcL (1.6-8.9); Platelet Count 123 K/mcL (140-400); Red Blood Count 2.69 M/mcL (4.19-5.50); Red Cell Distribution Width 20.5 % (11.5-14.5); Segmented Neutrophils % 70.6 %
[2017-04-06 05:55] LABS: Albumin 2.1 g/dL (3.5-5.0); Albumin/Globulin Ratio 0.3 (1.1-2.2); Calcium 10.1 mg/dL (8.6-10.8); Globulin 6.4 g/dL (2.4-3.5); Potassium 3.6 mEq/L (3.5-4.5); Total Protein 8.5 g/dL (6.0-8.3)
[2017-04-06 05:56] LABS: Bilirubin,Total 0.8 mg/dL (0.2-1.2)
[2017-04-06] MEDS: 0.9 % Sodium Chloride 1,000 ML IVC SCH ×2 (06:16→06:43)
[2017-04-06 07:16] VITALS: BP 145/70
--- NOTE | 2017-04-06 10:12 | Discharge Summary ---
Date of Encounter: 04/06/17 Time of Encounter: 10:10 - Discharge Diagnosis (1) Hypomagnesemia Priority: Secondary Status: Acute (2) DVT prophylaxis Priority: Secondary Status: Acute (3) Hypercalcemia Priority: Primary Status: Acute (4) Acute kidney injury Priority: Secondary Status: Resolved (5) Multiple myeloma Priority: Secondary Status: Chronic Qualifiers: Multiple myeloma remission status: not in remission Qualified Code(s): C90.00 - Multiple myeloma not having achieved remission (6) Urinary retention Priority: Secondary Status: Acute (7) BPH (benign prostatic hyperplasia) Priority: Secondary Status: Acute Qualifiers: Lower urinary tract symptom presence: symptoms present Lower urinary tract symptom detail: urinary retention Qualified Code(s): N40.1 - Benign prostatic hyperplasia with lower urinary tract symptoms; R33.8 - Other retention of urine ; R33.8 - Other retention of urine (8) Severe protein-calorie malnutrition Priority: Secondary Status: Acute - Discharge Medications Prescriptions: Tamsulosin [Flomax] 0.4 mg PO DAILY #30 capsule Home Medications: Multivit-Min/FA/Lycopen/Lutein [Centrum Silver Tablet] 1 tab PO DAILY 01/04/15 [ History] Aspirin [Adult Low Dose Aspirin EC] 81 mg PO DAILY #30 tablet. 02/01/15 [Rx] Prochlorperazine Maleate [Compazine] 10 mg PO Q6HR PRN #30 tablet 10/21/16 [Rx] Cyanocobalamin (Vitamin B-12) [Vitamin B-12] 100 mcg PO DAILY 12/02/16 [History] Phytosterol/Om-3/Dha/Epa/Fish [Fish Oil-Phytosterols Softgel] 1 cap PO DAILY [History] Lactulose 10 gm PO BID PRN #300 mls 02/03/17 [Rx] Metoprolol XL (24 HR) Succ [Toprol Xl] 25 mg PO DAILY 02/16/17 [History] Acyclovir [Zovirax] 800 mg PO DAILY 02/25/17 [History] Furosemide [Lasix] 20 mg PO DAILY PRN 02/25/17 [History] Amiodarone [Cordarone] 200 mg PO DAILY tablet 02/26/17 [Rx] Apixaban [Eliquis] 2.5 mg PO BID #60 tablet 03/08/17 [Rx] Omeprazole [PriLOSEC] 20 mg PO DAILY #90 cap 03/08/17 [Rx] ALPRAZolam [Xanax 0.5 MG Tablet] 0.5 mg PO BID PRN #40 tablet 03/16/17 [Rx] FentaNYL PATCH [Duragesic] 25 mcg TD Q72H #10 patch.td72 04/01/17 [Rx] Lisinopril [Zestril] 20 mg PO DAILY 04/03/17 [History] Oxycodone HCl/Acetaminophen [Percocet 10-325 mg Tablet] 1 tab PO TID PRN [History] Pomalidomide [Pomalyst] 2 mg PO DAILY 04/03/17 [History] Tamsulosin [Flomax] 0.4 mg PO DAILY #30 capsule 04/06/17 [Rx] Allergies/Adverse Reactions: 3 Allergy/AdvReac Type Severity Reaction Status Date / Time clarithromycin [From Biaxin] AdvReac Nausea Verified 03/24/17 12:03 Penicillins [PCN] AdvReac Fainting Verified 03/24/17 12:03 Sulfa (Sulfonamide AdvReac Hives Verified 03/24/17 12:03 Antibiotics) Procedures/tests Complete & Pending: Procedures Performed prior 72 hours Category Date Time Status US retroperitoneal comp [US] Routine Exams 04/05/17 20:30 Completed Date of admission: 04/03/17 13:24 Primary care physician: Sal Tomlin MD - Patient Status Disposition: Home Health Service Condition: Fair Functional capacity at discharge: independent ambulation Overall status at discharge: patient is progressing back to baseline - Discharge Instructions Follow Up With: Sal Tomlin MD [Primary Care Provider] - Hermelindo Arcos MD [Partnered Physician] - Chapincito Quach MD [Partnered Physician] - - Diet and Activity Activity: increase activity as tolerated Diet: advance to your usual diet, low salt diet Hospital course: Mr. Craig is a 76 year old male with past medical history significant for multiple myeloma, cardiomyopathy, hypertension, GERD who was sent to the hospital for evaluation of elevated calcium level. His calcium level was 13.5. He was admitted to the medical service. Oncology was consulted. He was treated with IV fluids and Lasix. He was given one dose of pamidronate and his counselor started trending down on day 2-12.8 and currently is at 10.1. Kidney function improved. He did have urinary retention and required Dunne catheter placement and will be discharged with a catheter and a close follow-up with urology. He was started on Flomax. Retroperitoneal ultrasound showed thickened bladder wall consistent with BPH and no hydronephrosis. He will follow up closely with his oncologist on Wednesday and he will be prescribed home health for Dunne catheter management. - Time Spent with Patient Total time spent providing and/or coordinating discharge services: Greater than 30 minutes - Constitutional Vitals: Temp Pulse Resp BP Pulse Ox 98.3 F 95 18 145/70 97 04/06/17 07:13 04/06/17 07:13 04/06/17 07:13 04/06/17 07:13 04/06/17 07:47 General appearance: Present: cooperative, mild distress, A&O X 3, underweight, answers questions appropriately - Respiratory Respiratory exam: Present: CTAB. Absent: accessory muscle use, rales, rhonchi, wheezes - Cardiovascular Cardiovascular exam: Present: RRR, +S1, +S2. Absent: diastolic murmur, gallop, rubs, systolic murmur - GI/Abdominal GI/Abdominal exam: Present: normal bowel sounds, soft, no peritoneal signs. Absent: distended, tenderness
[2017-04-06] MEDS: Lactulose Oral Soln 20 GM/30 ML UDC PO SCH (10:13)
[2017-04-06] MEDS: Furosemide 20 MG/2 ML VIAL IVP SCH (10:13)
[2017-04-06] MEDS: Pantoprazole 40 MG VIAL IVP SCH (10:13)
[2017-04-06] MEDS: FISH PO SCH (10:14)
[2017-04-06] MEDS: Lisinopril 20 MG TABLET PO SCH (10:14)
[2017-04-06] MEDS: [UNRECOGNIZED DRUG - OTHER] PO SCH (10:14)
[2017-04-06] MEDS: Metoprolol XL (24 HR) Succ 25 MG TAB.ER.24H PO SCH (10:14)
[2017-04-06] MEDS: EPA PO SCH (10:14)
[2017-04-06] MEDS: Cyanocobalamin (B-12) 1,000 MCG TABLET PO SCH (10:14)
[2017-04-06] MEDS: *HR* Amiodarone 200 MG TABLET PO SCH (10:14)
[2017-04-06] MEDS: (Pomalidomide [Pomalyst] 2 MG) PO SCH (10:14)
[2017-04-06] MEDS: DHA PO SCH (10:14)
[2017-04-06] MEDS: APIXABAN 2.5 MG TABLET PO SCH (10:14)
[2017-04-06] MEDS: Aspirin Enteric Coated 81 MG Tablet PO SCH (10:14)
[2017-04-06] MEDS: PHYTOSTEROL PO SCH (10:14)
[2017-04-06] MEDS: Multivit/Ca/Min/Fe/FA 1 TAB TABLET PO SCH (10:14)
--- NOTE | 2017-04-06 10:24 | Physician Discharge Referral ---
Home Health/Hosp Referral Info Transfer to: Home Health Provider in Charge Post Discharge: PCP - Diagnosis (1) Hypomagnesemia Priority: (Review of discharge was about more than) Status: Acute (2) DVT prophylaxis Status: Acute (3) Hypercalcemia Status: Acute (4) Acute kidney injury Status: Resolved (5) Multiple myeloma Status: Chronic (6) Urinary retention Status: Acute (7) BPH (benign prostatic hyperplasia) Status: Acute (8) Severe protein-calorie malnutrition Status: Acute - Respiratory Orders Smoking Cessation: Smoking cessation has been advised. For more information, call the [place] Tobacco Quit Line at 8-747-ZZQU-NOW. - Diet/Nutrition Diet/Nutrition Orders: No Added Salt (JONAH) (O) - Activity Activity Orders: Ambulate - Services Needed Following services are medically necessary services: Nursing, Home Health Aide Other Treatments: Dunne catheter management - Transfer Medications Prescriptions: Tamsulosin [Flomax] 0.4 mg PO DAILY #30 capsule Home Medications: Multivit-Min/FA/Lycopen/Lutein [Centrum Silver Tablet] 1 tab PO DAILY 01/04/15 [ History] Aspirin [Adult Low Dose Aspirin EC] 81 mg PO DAILY #30 tablet. 02/01/15 [Rx] Prochlorperazine Maleate [Compazine] 10 mg PO Q6HR PRN #30 tablet 10/21/16 [Rx] Cyanocobalamin (Vitamin B-12) [Vitamin B-12] 100 mcg PO DAILY 12/02/16 [History] Phytosterol/Om-3/Dha/Epa/Fish [Fish Oil-Phytosterols Softgel] 1 cap PO DAILY [History] Lactulose 10 gm PO BID PRN #300 mls 02/03/17 [Rx] Metoprolol XL (24 HR) Succ [Toprol Xl] 25 mg PO DAILY 02/16/17 [History] Acyclovir [Zovirax] 800 mg PO DAILY 02/25/17 [History] Furosemide [Lasix] 20 mg PO DAILY PRN 02/25/17 [History] Amiodarone [Cordarone] 200 mg PO DAILY tablet 02/26/17 [Rx] Apixaban [Eliquis] 2.5 mg PO BID #60 tablet 03/08/17 [Rx] Omeprazole [PriLOSEC] 20 mg PO DAILY #90 cap 03/08/17 [Rx] ALPRAZolam [Xanax 0.5 MG Tablet] 0.5 mg PO BID PRN #40 tablet 03/16/17 [Rx] FentaNYL PATCH [Duragesic] 25 mcg TD Q72H #10 patch.td72 04/01/17 [Rx] Lisinopril [Zestril] 20 mg PO DAILY 04/03/17 [History] Oxycodone HCl/Acetaminophen [Percocet 10-325 mg Tablet] 1 tab PO TID PRN [History] Pomalidomide [Pomalyst] 2 mg PO DAILY 04/03/17 [History] Tamsulosin [Flomax] 0.4 mg PO DAILY #30 capsule 04/06/17 [Rx] Allergies/Adverse Reactions: 3 Allergy/AdvReac Type Severity Reaction Status Date / Time clarithromycin [From Biaxin] AdvReac Nausea Verified 03/24/17 12:03 Penicillins [PCN] AdvReac Fainting Verified 03/24/17 12:03 Sulfa (Sulfonamide AdvReac Hives Verified 03/24/17 12:03 Antibiotics) Certification: Further, I certify that my clinical findings support that this patient is homebound (i.e. absences from home require considerable and taxing effort and are for medical reasons or gnosticism services or infrequently or short duration when for other reasons) because: Homebound Reason: Patient requires assistance of a person or device to safely leave home, Leaving home requires considerable and taxing effort due to condition Attestation: My signature below is to certify that this patient is under my care and that I, or nurse practitioner, or a physician's residential real estate assistant working with me, has a face-to -face encounter with this patient.
== END 2017-04-06 13:36 | disposition home health service (06) | DRG 840 ==
LOC: EMEROO 07:52 → 3BNU 07:52 → SUATTDRO 13:24
PROVIDERS: ADMIT Registered Nurse; ATTEND Internal Medicine